=== PATIENT | female | born 1975 | race Caucasian/White ===

== ENCOUNTER 2018-07-17 15:38 | Inpatient (IN) ==
--- NOTE | 2018-07-17 15:59 | Emergency Department Note ---
Disposition Clinical Impression: Wound of foot Cellulitis Qualifiers: Site of cellulitis: extremity Site of cellulitis of extremity: lower extremity Laterality: left Qualified Code(s): L03.116 - Cellulitis of left lower limb Disposition: Admitted As Inpatient Condition: Good Time of Disposition: 18:05 General Adult HPI - General Chief complaint: ED Wound/Laceration Stated complaint: Cellulitis/Ulcer Left Foot Time Seen by Provider: 07/17/18 15:55 Nursing Notes Reviewed: Yes Vital Signs Reviewed: Yes - History of Present Illness HPI Narrative: Female patient presents emergency complaining of a nonhealing ulcer to the bottom of her left foot. This is been present for around 2 years. She did have a recent admission to [facility] approximately a month and a half ago for possible osteomyelitis. She states that she was ruled out for that at that time. She was placed on vancomycin and Zosyn at that time. She reports that she had chills on Monday. This was approximately 3-4 days ago. This morning she noted that her leg was increasingly swollen and red near her knee and around her left ankle. She did see Dr. Acuna today for the nonhealing ulcer to her foot and he instructed her to come to the emergency department for IV antibiotics. She denies any nausea vomiting or diarrhea. She does report pain to the bottom of her foot. She reports swelling to his left leg only. She states that she is standing on her feet frequently is at what she does at work. Pain Scale: 10 - Related Data Home Medications Medication Instructions Recorded Confirmed Atorvastatin [Lipitor] 40 mg PO HS 09/07/17 09/07/17 Ergocalciferol (VITAMIN D2) 50,000 unit PO SA 09/07/17 09/07/17 [Vitamin D2] Folic Acid 1 mg PO DAILY 09/07/17 09/07/17 Gabapentin [Neurontin] 300 mg PO TID 09/07/17 09/07/17 Lansoprazole [Prevacid] 30 mg PO DAILY 09/07/17 09/07/17 Linagliptin/Metformin HCl 1 tab PO BID 09/07/17 09/07/17 [Jentadueto 2.5 mg-1000 mg Tab] Tramadol HCl [Ultram] 50 mg PO BID PRN 09/07/17 09/07/17 Vitamin B Complex [B Complex] 1 tab PO DAILY 09/07/17 09/07/17 Previous Rx's Medication Instructions Recorded HYDROcodone/Acet 5/325 mg [[place] 1 tab PO Q6H PRN #28 tab 09/07/17 5-325 mg] Allergies Allergy/AdvReac Type Severity Reaction Status Date / Time pregabalin [From Lyrica] Allergy Dizziness Verified 07/17/18 15:49 All systems ED: reviewed and negative except as stated. Review of Systems: As Per HPI Constitutional: Reports: fever (Subjective), chills (Monday possibly Monday as well.) ENT ED: Denies: congestion Cardiovascular: Denies: chest pain, syncope Respiratory: Denies: cough, dyspnea Gastrointestinal: Denies: abdominal pain, nausea, vomiting, diarrhea Genitourinary: Denies: urgency, dysuria, frequency, hematuria Musculoskeletal: Denies: back pain, neck pain Integumentary: Reports: other (Erythema to left ankle medial and lateral aspect. Swelling to left lower extremity. Erythema to tibial plateau area. Nonhealing ulcer to ball of left foot.) Neurological: Denies: headache, weakness Past Medical History - Past Medical History Attestation: Yes The following information was validated with the patient. Source: patient Medical history: Reports: cancer, diabetes, GERD Psychiatric history: Reports: no psych history - Social History Smoking Status: Current every day smoker Smokeless Tobacco Status: No Alcohol use: Reports: none Drug use: Reports: none Physical Exam - General Limitations: no limitations General appearance: alert, in no apparent distress - Head Head exam: atraumatic, normocephalic, normal inspection - Eye Eye exam: Present: normal appearance, PERRL, EOMI - ENT ENT exam: normal exam, normal oropharynx, mucous membranes moist - Neck Neck exam: Present: normal inspection, full ROM, trachea midline - Chest Chest inspection: Present: normal inspection, symmetric chest wall rise. Absent: tenderness - Respiratory Respiratory exam: Present: normal lung sounds bilaterally. Absent: respiratory distress, accessory muscle use - Cardiovascular Cardiovascular exam: Present: regular rate, normal rhythm, normal heart sounds - Abdominal Exam Abdominal exam: Present: soft, Non-Tender. Absent: tenderness, distention, guarding, rebound, rigidity, organomegaly, Hou's sign, Rovsing's sign, tend erness at McBurney's Point - Expanded Upper Extremity Exam Shoulder exam: Present: normal inspection, full ROM Arm exam: Present: normal inspection, full ROM Elbow exam: Present: normal inspection, full ROM Forearm/Wrist exam: Present: normal inspection, full ROM Hand exam: Present: normal inspection, full ROM Vascular exam: Normal: capillary refill, radial pulse - Expanded Lower Extremity Exam Hip/Pelvis exam: Present: normal inspection, full ROM Upper leg exam: Present: normal inspection, full ROM Knee exam: Present: normal inspection, full ROM Lower leg exam: Present: swelling, erythema (To the lateral aspect of the tibial plateau. Blanching. Mildly warm. On the left). Absent: palpable cord Ankle exam: Present: tenderness (Left), swelling (Left), erythema (2 medial and lateral malleoli area. Painful to palpation. On the left) Foot/toe exam: Present: other (Nonhealing wounds of all of the left foot. Does not appear to be erythematous. No discharge.) Neurovascular/Tendon exam: Absent: motor deficit, sensory deficit, tendon deficit - Neurological Exam Neurological exam: Present: alert, oriented X3 - Psychiatric Psychiatric exam: Present: normal affect, normal mood - Skin Skin exam: Present: warm, dry, intact, normal color. Absent: rash, cyanosis, diaphoresis Course Course Narrative: Male patient is well-appearing. She does report subjective fevers over the weekend. Has this nonhealing wound to her left lower extremity. We did get an x-ray that showed no free air. I discussed with Dr. Acuna who is requesting that we admit patient to the hospital with IV antibodies. We did cover her with IV vancomycin and Zosyn for CML coverage as well. She otherwise appears well she is not febrile and not tachycardic or here. We did discuss imaging we will get a CT with contrast of the left lower extremity. She was negative for DVT. We will admit to the hospital. She does have a mildly elevated white blood cell count. - Consultations Consultation #1: I spoke with Dr. Acuna. He is concerned of the extent of the patient's cellulitis and her being febrile at home. He is requesting IV antibiotics and admission to the hospital. We talked about imaging and he is agreeable with a CT with contrast at this time to ensure there is no drainable abscess and admission to the hospital for possible further MRI if needed. Time: 17:50 Vital Signs Temperature 98.6 F 07/17/18 15:47 Pulse Rate 85 07/17/18 15:47 Respiratory Rate 16 07/17/18 15:47 Blood Pressure 108/67 07/17/18 15:47 O2 Sat by Pulse Oximetry 95 07/17/18 15:47 Temperature 98.6 F 07/17/18 15:47 Pulse Rate 85 07/17/18 15:47 Respiratory Rate 16 07/17/18 15:47 Blood Pressure 108/67 07/17/18 15:47 O2 Sat by Pulse Oximetry 95 07/17/18 15:47 Oxygen Delivery Oxygen Delivery Room Air Medical Decision Making - Medical Records Medical records reviewed: Yes I reviewed the patient's medical records. - Lab Data Lab results reviewed: Yes I reviewed the patient's lab results. Result diagrams: 07/17/18 16:36 07/17/18 16:36 Lab Results 07/17/18 07/17/18 Range/Units 16:36 16:36 WBC 12.7 H (4.3-11.1) K/mcL RBC 5.54 H (3.82-4.97) M/mcL Hgb 15.7 H (11.5-15.4) g/dL Hct 48.7 H (35.3-44.9) % MCV 87.9 (83.0-100.0) fL MCH 28.3 (28.0-33.3) pg MCHC 32.2 (31.6-35.5) g/dL RDW 14.2 (11.5-14.5) % Plt Count 246 (140-400) K/mcL MPV 11.1 (9.4-12.4) fL Immature Gran % 0.6 (0-4) % Seg Neutrophils % 60.2 % Lymphocytes % 26.9 % Monocytes % 10.0 % Eosinophils % 1.7 % Basophils % 0.6 % Neutrophils # 7.6 (1.6-8.9) K/mcL Lymphocytes # 3.4 (0.6-4.6) K/mcL Monocytes # 1.3 (0.0-1.3) K/mcL Eosinophils # 0.2 (0.0-0.6) K/mcL Basophils # 0.1 (0.0-0.2) K/mcL Sodium 136 (136-145) mEq/L Potassium 3.4 L (3.5-5.1) mEq/L Chloride 101 (98-107) mEq/L Carbon Dioxide 28 (23-29) mEq/L BUN 11 (6-20) mg/dL Creatinine 0.43 L (0.60-1.20) mg/dL Est GFR ( Amer) > 60 (> 60) Est GFR (Non-Af Amer) > 60 (> 60) BUN/Creatinine Ratio 26 (6-26) Glucose 194 H (70-105) mg/dL Calculated Osmolality 287 (280-300) Calcium 9.4 (8.6-10.3) mg/dL - Radiology Data Radiology results reviewed: Yes I reviewed the patient's radiology results. Foot X-Ray 07/17/18 16:33 IMPRESSION: Ulceration along the ball of the foot, without radiographic evidence of osteomyelitis. D/ / Emile Troncoso MD / Emile Troncoso MD Interpreting Provider: Emile Troncoso MD S.B.A.RSherine - Neeraj.BSherineASherineRSherine Assessment: Outstanding Labs (CT of lower extremity) Recommendation: Recommendation based on pending studies, treatments, or consults (Admission) S.B.A.RSherine Report Given to: Kenna Molina Repor Time: 18:53 Attestation Statement - Attestation Attestation: I, Beto Arevalo, examined this patient and my medical decision-making was reviewed with the POLO COACH/PA/Advanced Practice Nurse/Resident Physician. I agree with the documented findings, disposition and treatment plan as described except to the extent set forth below. 42-year-old female presents emergency Department with concerns of swelling left lower extremity. Patient was recently admitted [facility] for osteomyelitis of left lower extremity. She follows Dr. Acuna as outpatient for treatment of her wound care. Patient had swelling and erythema of left lower extremities today and she sent emergency department for further evaluation and likely admission to the hospital for IV antibiotics. Ultrasound of the left lower extremity was negative for DVT. Patient be admitted to the hospitalist for further care and evaluation.
[2018-07-17] MEDS ORDERED: 0.9 % Sodium Chloride 1,000 ML IVC ONE (16:32)
[2018-07-17] MEDS ORDERED: Piperacillin/Tazobactam 3.375 GM in 0.9 % Sodium Chloride Mini Bag 100 ML IVPB ONE ×2 (16:49→16:54)
[2018-07-17] MEDS ORDERED: Isovue-370 500 ML INFUS..BTL IV ONE (17:00)
[2018-07-17 17:02] LABS: Basophils # 0.1 K/mcL (0.0-0.2); Basophils % 0.6 %; Eosinophils # 0.2 K/mcL (0.0-0.6); Eosinophils % 1.7 %; Hematocrit 48.7 % (35.3-44.9); Hemoglobin 15.7 g/dL (11.5-15.4); Immature Granulocytes % 0.6 % (0-4); Lymphocytes # 3.4 K/mcL (0.6-4.6); Lymphocytes % 26.9 %; Mean Corpuscular HGB Conc 32.2 g/dL (31.6-35.5); Mean Corpuscular Hemoglobin 28.3 pg (28.0-33.3); Mean Corpuscular Volume 87.9 fL (83.0-100.0); Mean Platelet Volume 11.1 fL (9.4-12.4); Monocytes # 1.3 K/mcL (0.0-1.3); Neutrophils # 7.6 K/mcL (1.6-8.9); Platelet Count 246 K/mcL (140-400); Red Blood Count 5.54 M/mcL (3.82-4.97); Red Cell Distribution Width 14.2 % (11.5-14.5); Segmented Neutrophils % 60.2 %
[2018-07-17] MEDS ORDERED: *HR* OxyCODONE Immed Rel 5 MG TABLET PO ONE (17:20)
[2018-07-17 17:21] LABS: BUN/Creatinine Ratio 26 (6-26); Blood Urea Nitrogen 11 mg/dL (6-20); Calcium 9.4 mg/dL (8.6-10.3); Carbon Dioxide 28 mEq/L (23-29); Chloride 101 mEq/L (98-107); Glucose 194 mg/dL (70-105); Osmolality,Calculated 287 (280-300); Potassium 3.4 mEq/L (3.5-5.1); Sodium 136 mEq/L (136-145); eGFR For Non-African Americans > 60 (> 60)
[2018-07-17] MEDS ORDERED: Naloxone 0.4 MG/ML INJ IVP PRN (18:39)
[2018-07-17] MEDS ORDERED: Ondansetron 4 MG/2 ML VIAL IVP PRN (18:39)
[2018-07-17] MEDS ORDERED: *HR* OxyCODONE Immed Rel 5 MG TABLET PO PRN (18:44)
[2018-07-17] MEDS ORDERED: Dextrose Gel 15 GM/37.5 ML TUBE PO PRN ×2 (18:48)
[2018-07-17] MEDS ORDERED: *HR* Dextrose 50 % in Water (Syg) 50 ML SYRINGE IVP PRN (18:48)
[2018-07-17] MEDS ORDERED: D5% in Water 1,000 ML IVC PRN (18:48)
--- NOTE | 2018-07-17 18:59 | Internal Med History&Physical ---
Date of Encounter: 07/17/18 Time of Encounter: 18:54 Internal Medicine - H&P: HPI Chief complaint: wound l foot Admitted From: Emergency Dept Plans for Post Hospital Care: Home History of present illness: Ms. Romero is a 42 year old female past medical history of diabetes GERD current every day smoker nonhealing ulcer. Patient has had a nonhealing ulcer to the bottom of her left foot for approximately past 2 years. She has been followed by podiatry Dr. Acuna. Lisandro a month and half ago she did present to an [facility] facility for possible osteomyelitis and did receive vancomycin and Zosyn at that time. Approximately 3-4 days ago patient has been experiencing fevers and chills. Patient continued to feel lethargic and fatigued over the weekend. She has noted that her left foot has been swollen and red up to her knee tender as well as warm. She has been unable to bear any weight she is complaining of some numbness and tingling She did have appointment with podiatry tomorrow however he advised her to come to the office today. Podiatry advised patient to go to hospital for IV antibiotics. In the ER patient did have elevated white count the x-ray did not show any evidence of osteomyelitis CT scan of left lower extremity has been ordered and is pending. Blood cultures have been obtained patient has been started on vancomycin and Zosyn. She will be admitted for further workup and evaluation of cellulitis to left lower extremity. Currently patient is hemodynamically stable afebrile denies any chest pain or shortness of breath. Extremity is warm to touch, there is edema left foot up to left knee nor extremity is tender to touch there is erythema to left foot pulses are present +2 palpable Refills are brisk Past Med Surg Social Fam HX - Past Medical History Medical history: cancer, diabetes, GERD Psychiatric history: no psych history - Past Surgical History Additional surgical history: foot surgery - Social History Smoking Status: Current every day smoker Smokeless Tobacco Status: No Alcohol use: none Drug use: none - Family History Mother Living Status: Still Living Hx Family Endocrine Disorder: Yes (DM) Internal Medicine - H&P: Meds Atorvastatin [Lipitor] 40 mg PO HS 09/07/17 [History] Ergocalciferol (VITAMIN D2) [Vitamin D2] 50,000 unit PO SA 09/07/17 [History] Folic Acid 1 mg PO DAILY 09/07/17 [History] Gabapentin [Neurontin] 300 mg PO TID 09/07/17 [History] HYDROcodone/Acet 5/325 mg [[place] 5-325 mg] 1 tab PO Q6H PRN #28 tab 09/07/17 [Rx] Lansoprazole [Prevacid] 30 mg PO DAILY 09/07/17 [History] Linagliptin/Metformin HCl [Jentadueto 2.5 mg-1000 mg Tab] 1 tab PO BID 09/07/17 [History] Tramadol HCl [Ultram] 50 mg PO BID PRN 09/07/17 [History] Vitamin B Complex [B Complex] 1 tab PO DAILY 09/07/17 [History] Allergy/AdvReac Type Severity Reaction Status Date / Time pregabalin [From Lyrica] Allergy Dizziness Verified 07/17/18 15:49 All Systems PM: A 10-system review of systems was performed and is negative for pertinent findings except as documented above in the HPI. - Constitutional Constitutional: chills, fever(s) - EENT Eyes: no change in vision, no discharge, no pain, no photophobia Ears: no ear discharge, no ear pain, no tinnitus Nose, mouth and throat: no dysphagia, no nasal discharge, no neck pain, no sore throat - Cardiovascular Cardiovascular ROS IM: edema, no chest pain, no diaphoresis, no dyspnea, no lightheadedness, no palpitations, no syncope - Respiratory Respiratory: no cough, no dyspnea, no wheezing, no excessive phlegm production - Gastrointestinal Gastrointestinal: no abdominal pain, no diarrhea, no hematemesis, no hematochezia, no melena, no nausea, no vomiting - Genitourinary Genitourinary: no change in urinary stream, no dysuria, no flank pain, no hematuria - Musculoskeletal Musculoskeletal ROS IM: no numbness, no tingling - Integumentary Integumentary IM: erythema, non-healing lesions - Neurological Neurological ROS: no confusion, no convulsions, no focal weakness, no numbness, no tingling, no tremor(s) - Hematologic/Lymphatic Hematologic/Lymphatic: no easy bruising - Constitutional Vitals: Temp Pulse Resp BP Pulse Ox 98.6 F 85 16 108/67 95 07/17/18 15:47 07/17/18 15:47 07/17/18 15:47 07/17/18 15:47 07/17/18 15:47 General appearance: Present: A&O X 3, morbidly obese Exam: See below - Head Head exam: Present: atraumatic, normocephalic - Eye Eye exam: Present: PERRL, conjuntiva pink, sclera anicteric Pupils: Present: PERRL - Neck Neck exam general surgery: Present: supple, trachea midline. Absent: lymphadenopathy - Respiratory Respiratory exam: Present: CTAB. Absent: accessory muscle use, rales, rhonchi, wheezes - Cardiovascular Cardiovascular exam: Present: RRR, +S1, +S2. Absent: diastolic murmur, gallop, rubs, systolic murmur - GI/Abdominal GI/Abdominal exam: Present: normal bowel sounds, soft, no peritoneal signs. Absent: distended, tenderness - Expanded Lower Extremities Exam Lower Leg exam: Present: erythema, swelling, tenderness (Lesion plantar second metatarsal head area ) - Neurological Exam Neurological exam: Present: CN II-XII intact, oriented X3, no focal deficits. Absent: pronater drift, facial droop, speech deficit Internal Med - H&P Results - Labs CBC & Chem 7: 07/17/18 16:36 07/17/18 16:36 Labs: Short CBC 07/17/18 Range/Units 16:36 WBC 12.7 H (4.3-11.1) K/mcL Hgb 15.7 H (11.5-15.4) g/dL Hct 48.7 H (35.3-44.9) % Plt Count 246 (140-400) K/mcL Neutrophils # 7.6 (1.6-8.9) K/mcL BMP 07/17/18 16:36 Sodium 136 Potassium 3.4 L Chloride 101 Carbon Dioxide 28 BUN 11 Creatinine 0.43 L Glucose 194 H Calcium 9.4 - Impressions ITS Impressions Foot X-Ray 07/17/18 16:33 IMPRESSION: Ulceration along the ball of the foot, without radiographic evidence of osteomyelitis. D/ / Emile Troncoso MD / Emile Troncoso MD Interpreting Provider: Emile Troncoso MD - Assessment and plan (1) Cellulitis Current Visit: Yes Status: Acute Assessment and plan: Patient has a nonhealing ulcer to plantar aspect of left foot this has been present for approximately 2 years and has been followed by podiatry. The past 3-4 days patient has been experiencing lower extremity swelling tenderness erythema has been unable to bear weight onto left leg. Was seen by podiatry recommending IV antibiotics at this time. X-ray of left extremity shows no osteomyelitis CT of left lower extremity is pending at this time. Blood cultures have been obtained-patient does not appear to be septic We will continue with vancomycin and Zosyn Continue with [place] as well as oxycodone for severe pain Elevate extremity Podiatry consult in the emergency department ESR CRP Qualifiers: Site of cellulitis: extremity Site of cellulitis of extremity: lower extremity Laterality: left Qualified Code(s): L03.116 - Cellulitis of left lower limb (2) Diabetes Current Visit: Yes Status: Acute Assessment and plan: Accu-Cheks before meals at bedtime with sliding scale insulin Diabetic diet Qualifiers: Diabetes mellitus type: type 2 Diabetes mellitus half-way insulin use: without termite technician use Diabetes mellitus complication status: with skin c omplications Diabetes mellitus complication detail: with foot ulcer Qualified Code(s): E11.621 - Type 2 diabetes mellitus with foot ulcer; L97.509 - Non-pressure chronic ulcer of other part of unspecified foot with unspecified severity (3) Tobacco use Current Visit: Yes Status: Acute Assessment and plan: Encourage patient to stop smoking nicotine patch (4) DVT prophylaxis Current Visit: Yes Status: Acute Assessment and plan: Lovenox subcutaneous (5) Hypokalemia Current Visit: Yes Status: Acute Assessment and plan: Potassium was 3.4 presentation we will replace and recheck in a.m. (6) Wound of foot Current Visit: Yes Status: Acute - Time Spent With Patient Total time spent is greater than 50% in coordination of care (as documented) at patient's floor/unit and/or counseling patient:
[2018-07-17 19:17] LABS: Magnesium 1.7 mg/dL (1.6-2.6)
[2018-07-17 19:47] LABS: C-Reactive Protein 75 mg/L (Less than 10)
[2018-07-17] MEDS: Nicotine 7 MG PATCH.TD24 TD SCH (21:32)
[2018-07-17] MEDS: Insulin LISPRO 300 UNITS/3 ML VIAL SQ SCH (23:55)
[2018-07-18] MEDS: Piperacillin/Tazobactam 3.375 GM in 0.9 % Sodium Chloride Mini Bag 100 ML IVPB SCH ×3 (00:43→16:37)
[2018-07-18 06:16] LABS: Basophils # 0.1 K/mcL (0.0-0.2); Basophils % 0.6 %; Eosinophils # 0.2 K/mcL (0.0-0.6); Eosinophils % 2.1 %; Hematocrit 45.5 % (35.3-44.9); Hemoglobin 14.4 g/dL (11.5-15.4); Immature Granulocytes % 0.5 % (0-4); Lymphocytes # 2.7 K/mcL (0.6-4.6); Lymphocytes % 24.6 %; Mean Corpuscular HGB Conc 31.6 g/dL (31.6-35.5); Mean Corpuscular Hemoglobin 28.1 pg (28.0-33.3); Mean Corpuscular Volume 88.7 fL (83.0-100.0); Mean Platelet Volume 10.6 fL (9.4-12.4); Monocytes # 1.1 K/mcL (0.0-1.3); Monocytes % 10.2 %; Neutrophils # 6.8 K/mcL (1.6-8.9); Platelet Count 234 K/mcL (140-400); Red Blood Count 5.13 M/mcL (3.82-4.97); Red Cell Distribution Width 14.4 % (11.5-14.5)
[2018-07-18 06:34] LABS: BUN/Creatinine Ratio 26 (6-26); Blood Urea Nitrogen 9 mg/dL (6-20); Calcium 8.8 mg/dL (8.6-10.3); Carbon Dioxide 26 mEq/L (23-29); Chloride 105 mEq/L (98-107); Glucose 154 mg/dL (70-105); Osmolality,Calculated 286 (280-300); Potassium 3.7 mEq/L (3.5-5.1); Sodium 137 mEq/L (136-145); eGFR For Non-African Americans > 60 (> 60)
[2018-07-18] MEDS: Nicotine 7 MG PATCH.TD24 TD SCH (07:43)
[2018-07-18] MEDS: *HR* Enoxaparin 40 MG/0.4 ML SYRINGE SQ SCH (07:44)
[2018-07-18] MEDS: Insulin LISPRO 300 UNITS/3 ML VIAL SQ SCH ×4 (07:44→21:11)
[2018-07-18] MEDS: *HR* HYDROcodone/Acet 5/325 mg TABLET PO PRN ×2 (07:54→19:00)
[2018-07-18] MEDS ORDERED: Gadolinium Contrast Agent (WT Based) IV PRN (10:10)
--- NOTE | 2018-07-18 15:21 | Podiatry Consult Note ---
Date of Encounter: 07/18/18 Time of Encounter: 12:00 Assessment and Plan (1) Cellulitis Current visit: Yes Status: Acute [place] stage II ulceration of the plantar aspect of the left foot with associated cellulitis PLAN Admitted for IV antibiotics WBC responding, 12.7 on admission decreased to 10.9 today ESR 63 and CRP 75 Xray negative for osteomyelitis CT scan shows possible erosion at the 3rd mt head- MRI ordered and pending to rule out abscess or possible osteomyelitis Continue elevation Cleansed with saline Maxsorb AG, 4x4 and kerlix applied Change daily Blood cultures were obtained and pending Wound cultures were obtained in office and pending Will titrate antibiotic pending MRI results and final culture Will continue to follow. Foot X-Ray 07/17/18 16:33 IMPRESSION: Ulceration along the ball of the foot, without radiographic evidence of osteomyelitis. D/ / Emile Troncoso MD / Emile Troncoso MD Interpreting Provider: Emile Troncoso MD Lower Extremity CT 07/17/18 17:00 IMPRESSION: 1. Possible age-indeterminate erosion along the medial plantar surface of the 3rd metatarsal head. If there is persistent clinical concern for osteomyelitis MRI could be obtained for further evaluation. 2. Shallow soft tissue ulceration plantar to the 2nd and 3rd metatarsal heads with underlying induration. No sinus tract or drainable fluid collection identified. Diffuse subcutaneous fat stranding compatible with cellulitis. D/ / Bran Campuzano MD / Bran Campuzano MD Interpreting Provider: Bran Campuzano MD Qualifiers: Site of cellulitis: extremity Site of cellulitis of extremity: lower extremity Laterality: left Qualified Code(s): L03.116 - Cellulitis of left lower limb (2) Wound of foot Current visit: Yes Status: Acute Cleanse daily with saline, pat dry Apply maxsorb AG, 4x4 and kerlix Will need post operative shoe for offloading prior to discharge. History of Present Illness HPI: Ms. Romero is a 42 year old female past medical history of diabetes GERD and current every day smoker. Patient presented to podiatry clinic on 07/17 with complaints of a non healing ulceration to the plantar aspect of the left foot, pain, numbness and weakness of the left leg starting at the knee and drainage to the wound. Patient denied any fevers, chills, n/v or fls. Approximately 3-4 days ago patient reported she had been experiencing fevers and chills. Patient continued to feel lethargic and fatigued over the weekend. She also reported in clinic that her leg, up to her knee, and foot had been swollen, red, hot and tender x3 days. She has been unable to bear any weight. Patient was sent from Podiatry clinic to ED for admission for IV antibiotics. In the ER patient did have elevated white count at 12.1 however the x-ray did not show any evidence of osteomyelitis. Blood cultures have been obtained patient has been started on vancomycin and Zosyn. Wound cultures were obtained in podiatry clinic. Upon a rrival today patient reports she feels about the same. Denies any known fevers or chills overnight. Currently patient is hemodynamically stable, afebrile, denies any chest pain or shortness of breath. LLE duplex was negative for DVT. Patient reports continued pain to LLE. Past Med Surg Social Fam HX - Past Medical History Medical history: cancer, diabetes, GERD Psychiatric history: no psych history - Past Surgical History Surgical History: , hysterectomy Additional surgical history: foot surgery - Social History Smoking Status: Current every day smoker Packs per day: 1/2 Smokeless Tobacco Status: No Alcohol use: none Drug use: none - Family History Mother Name: Jaida Aguero Age: 62 Family Member Ethnicity: Non- Living Status: Still Living Hx Family Cardiac Disorders: Yes Hx Family Respiratory Disorders: Yes Hx Family GI Disorders: Yes Hx Family Endocrine Disorder: Yes Hx Family Psychosocial Disorders: Yes Medications and Allergies Atorvastatin [Lipitor] 40 mg PO HS 09/07/17 [History] Ergocalciferol (VITAMIN D2) [Vitamin D2] 50,000 unit PO SA 09/07/17 [History] Gabapentin [Neurontin] 300 mg PO TID 09/07/17 [History] Dicyclomine Hcl [Bentyl] 20 mg PO TID 07/17/18 [History] Insulin Degludec [Tresiba Flextouch U-100] 30 unit SQ DAILY 07/17/18 [History] Allergy/AdvReac Type Severity Reaction Status Date / Time pregabalin [From Lyrica] Allergy Dizziness Verified 07/17/18 15:49 All Systems Reviewed: Tas per HPI Physical Exam - Constitutional Vitals: Temp Pulse Resp BP Pulse Ox 98.1 F 88 16 124/83 91 07/18/18 12:14 07/18/18 12:14 07/18/18 12:14 07/18/18 12:14 07/18/18 12:14 Exam: Awake alert and oriented Warm toes to tibia Palpable +1/4 DP and PT pulses, cap refill <3 seconds, no pain with manual compression of calf 1+ pitting edema to GERARDO There is noted warmth, edema and erythema of LLE most prominent surrounding the medial and lateral malleolus and heel as well as scatted up to knee. There are no noted areas of pronounced edema or fluctuance to suggest an abscess clinically. There is an ulceration sub mt head #2 and #3 plantar aspect of left foot There is mild hyperkeratosis surrounding which was debrided in office yesterday revealing a keating stage II diabetic ulceration without probe to bone. There is moderate serosang drainage noted. No odor noted. Mild surrounding edema, erythema and warmth. cellulitis is more diffuse. There is some resolution noted in comparison to yesterdays exam Movement of foot and ankle intact and without weakness 5/5 and equal bilaterally Diminished sensation to light or moderate touch related to polyneuropathy Results - Labs Result Diagrams: 07/18/18 05:54 07/18/18 05:54 Labs: Abnormal lab results RBC 5.13 M/mcL (3.82-4.97) H 07/18/18 05:54 Hct 45.5 % (35.3-44.9) H 07/18/18 05:54 ESR 63 mm/hr (0-15) H 07/17/18 16:35 Creatinine 0.34 mg/dL (0.60-1.20) L 07/18/18 05:54 Glucose 154 mg/dL (70-105) H 07/18/18 05:54 C-Reactive Protein 75 mg/L (Less than 10) H 07/17/18 16:36 H & H 07/17/18 07/18/18 Range/Units 16:36 05:54 Hgb 15.7 H 14.4 (11.5-15.4) g/dL Hct 48.7 H 45.5 H (35.3-44.9) % All other labs normal. Consult Discharge Plan - Plan Referrals: Stephanie Campbell MD [Primary Care Provider] -
[2018-07-18 15:53] LABS: Acinetobacter baumannii by PCR Not Detected (Not Detect); Candida albicans by PCR Not Detected (Not Detect); Candida glabrata by PCR Not Detected (Not Detect); Candida krusei by PCR Not Detected (Not Detect); Candida parapsilosis by PCR Not Detected (Not Detect); Candida tropicalis by PCR Not Detected (Not Detect); Enterobacter cloacae Cmplx PCR Not Detected (Not Detect); Enterobacteriaceae by PCR Not Detected (Not Detect); Enterococcus by PCR Not Detected (Not Detect); Escherichia coli by PCR Not Detected (Not Detect); Klebsiella oxytoca by PCR Not Detected (Not Detect); Klebsiella pneumoniae by PCR Not Detected (Not Detect); Proteus by PCR Not Detected (Not Detect); Pseudomonas aeruginosa by PCR Not Detected (Not Detect); Serratia marcescens by PCR Not Detected (Not Detect); Staphylococcus aureus by PCR Not Detected (Not Detect); Staphylococcus by PCR DETECTED (Not Detect); Streptococcus agalactiae(B)PCR Not Detected (Not Detect); Streptococcus by PCR Not Detected (Not Detect); Streptococcus pneumoniae PCR Not Detected (Not Detect); Streptococcus pyogenes (A) PCR Not Detected (Not Detect); mecA Methicillin-Resist Gene DETECTED (Not Detect)
[2018-07-18] MEDS ORDERED: Vancomycin 1,750 MG in 0.9 % Sodium Chloride 250 ML IVPB SCH (19:00)
[2018-07-18] MEDS ORDERED: Nicotine 7 MG PATCH.TD24 TD ONE (21:00)
--- NOTE | 2018-07-18 21:23 | Internal Med Progress Note ---
Hospitalist Progress Note - Encounter Date of Encounter: 07/18/18 Time of Encounter: 19:00 - Subjective Interval History: SUBJECTIVE: The patient feels pretty good. Her left foot pain is under control. Denies chest pain and difficulty breathing. Denies abdominal pain. She has normal urination. OBJECTIVE: Skin: For description of left foot diabetic ulcer/cellulitis see notes from podiatry. The rest of the skin is normal in appearance. ENMT: Oral/pharyngeal mucosa is normal in appearance. Eyes: Sclera is white. There is no discharge from eyes. Respiratory: Normal breath sounds; no crackles or wheezes. CV: Heart is regular; no gallop or murmur. GI: Abdomen is soft and not tender. There is no palpable mass or visceromegaly. Neuro: There is no focal deficits. ADDITIONAL DATA: WBC is 10.9 thousand; 12.7 thousand yesterday. Potassium is 3.7; 3.4 yesterday. Creatinine is 0.34. ASSESSMENT AND PLAN: Diabetic ulcer/cellulitis of left foot in a patient with type 2 diabetes mellitus/polyneuropathy. We appreciate help from podiatry. MRI of left foot has been requested. The patient is on IV vancomycin/IV Zosyn. Her pain is treated with when necessary Fil[place] and/or Roxicodone. Hyperlipidemia. We will restart her Lipitor. Hypokalemia. Better after giving her a supplemental potassium chloride. - Exam Vitals: Temp Pulse Resp BP Pulse Ox 99.0 F 92 16 113/79 93 07/18/18 20:42 07/18/18 20:42 07/18/18 20:42 07/18/18 20:42 07/18/18 20:42 Exam: xx - Assessment and Plan (1) T2DM (type 2 diabetes mellitus) Current Visit: Yes Status: Chronic (2) T2DM (type 2 diabetes mellitus) Current Visit: Yes Status: Chronic (3) Cellulitis Current Visit: Yes Status: Acute (4) HLD (hyperlipidemia) Current Visit: Yes Status: Acute (5) Hypokalemia Current Visit: Yes Status: Acute - Time Spent with Patient Total time spent is greater than 50% in coordination of care (as documented) at patient's floor/unit and/or counseling patient: 25 - 35 minutes Plan of Care Discussed with: patient Internal Medicine: Result - Labs CBC & Chem 7: 07/18/18 05:54 07/18/18 05:54 Labs: Short CBC 07/18/18 Range/Units 05:54 WBC 10.9 (4.3-11.1) K/mcL Hgb 14.4 (11.5-15.4) g/dL Hct 45.5 H (35.3-44.9) % Plt Count 234 (140-400) K/mcL Neutrophils # 6.8 (1.6-8.9) K/mcL BMP 07/18/18 05:54 Sodium 137 Potassium 3.7 Chloride 105 Carbon Dioxide 26 BUN 9 Creatinine 0.34 L Glucose 154 H Calcium 8.8 - Impressions Impressions Foot MRI 07/18/18 00:00 IMPRESSION: 1. No convincing evidence of osteomyelitis or other acute osseous abnormality. Chronic appearing deformity or erosion along the medial plantar surface of the 3rd metatarsal head without bone marrow edema. 2. Mild circumferential subcutaneous edema of the calf and moderate dorsal mid and forefoot subcutaneous edema compatible with sterile edema versus cellulitis. No drainable fluid collection. 3. Shallow soft tissue ulceration plantar to the 3rd MTP joint. No sinus tract or associated fluid collection. 4. Small volume of fluid in the 3rd interdigital space as can be seen with intermetatarsal bursitis. D/ / Bran Campuzano MD / Bran Campuzano MD Interpreting Provider: Bran Campuzano MD Lower Extremity MRI 07/18/18 00:00 IMPRESSION: 1. No convincing evidence of osteomyelitis or other acute osseous abnormality. Chronic appearing deformity or erosion along the medial plantar surface of the 3rd metatarsal head without bone marrow edema. 2. Mild circumferential subcutaneous edema of the calf and moderate dorsal mid and forefoot subcutaneous edema compatible with sterile edema versus cellulitis. No drainable fluid collection. 3. Shallow soft tissue ulceration plantar to the 3rd MTP joint. No sinus tract or associated fluid collection. 4. Small volume of fluid in the 3rd interdigital space as can be seen with intermetatarsal bursitis. D/ / Bran Campuzano MD / Bran Campuzano MD Interpreting Provider: Bran Campuzano MD Consult Discharge Plan - Plan Referrals: Stephanie Campbell MD [Primary Care Provider] - (1) T2DM (type 2 diabetes mellitus) Qualifiers: Diabetes mellitus laborer marine terminal insulin use: with laborer marine terminal use Diabetes mellitus complication status: with skin complications Diabetes mellitus complication detail: with foot ulcer Qualified Code(s): E11.621 - Type 2 diabetes mellitus with foot ulcer; L97.509 - Non-pressure chronic ulcer of other part of unspecified foot with unspecified severity; Z79.4 - ferry terminal agent (current) use of insulin (2) T2DM (type 2 diabetes mellitus) Qualifiers: Diabetes mellitus longterm insulin use: with longterm use Diabetes mellitus complication status: with neurologic complications Diabetes mellitus complication detail: with polyneuropathy Qualified Code(s): E11.42 - Type 2 diabetes mellitus with diabetic polyneuropathy; Z79.4 - assisted (current) use of insulin (3) Cellulitis Qualifiers: Site of cellulitis: extremity Site of cellulitis of extremity: lower extremity Laterality: left Qualified Code(s): L03.116 - Cellulitis of left lower limb (4) HLD (hyperlipidemia) Qualifiers: Hyperlipidemia type: unspecified Qualified Code(s): E78.5 - Hyperlipidemia, unspecified
[2018-07-19] MEDS: Piperacillin/Tazobactam 3.375 GM in 0.9 % Sodium Chloride Mini Bag 100 ML IVPB SCH ×3 (00:09→17:09)
[2018-07-19] MEDS: Acetaminophen 325 MG TABLET PO PRN ×3 (01:07→19:58)
[2018-07-19] MEDS: *HR* Enoxaparin 40 MG/0.4 ML SYRINGE SQ SCH (05:44)
[2018-07-19] MEDS: Insulin LISPRO 300 UNITS/3 ML VIAL SQ SCH ×4 (07:17→21:03)
[2018-07-19] MEDS: Nicotine 7 MG PATCH.TD24 TD SCH (07:57)
--- NOTE | 2018-07-19 09:08 | Podiatry Progress Note ---
Date of Encounter: 07/19/18 Time of Encounter: 08:30 - Assessment and Plan (1) Cellulitis Current Visit: Yes Status: Acute [place] stage II ulceration of the plantar aspect of the left foot with associated cellulitis Improved erythema, none noted to thigh area. Erythema noted to left calf and left foot No lab work today. MRI reviewed no signs of osteomyelitis or acute abnormality. Xray negative for osteomyelitis CT scan shows possible erosion at the 3rd mt head- Continue elevation Blood cultures were obtained and show gram positive cocci. Gram stain from office also show gram-positive cocci. Wound cultures were obtained in office and pending. Will continue to follow. Recommend -ID consult for antibiotic management and de-escalation Foot X-Ray 07/17/18 16:33 IMPRESSION: Ulceration along the ball of the foot, without radiographic evidence of osteomyelitis. D/ / Emile Troncoso MD / Emile Troncoso MD Interpreting Provider: Emile Troncoso MD Lower Extremity CT 07/17/18 17:00 IMPRESSION: 1. Possible age-indeterminate erosion along the medial plantar surface of the 3rd metatarsal head. If there is persistent clinical concern for osteomyelitis MRI could be obtained for further evaluation. 2. Shallow soft tissue ulceration plantar to the 2nd and 3rd metatarsal heads with underlying induration. No sinus tract or drainable fluid collection identified. Diffuse subcutaneous fat stranding compatible with cellulitis. D/ / Bran Campuzano MD / Bran Campuzano MD Interpreting Provider: Bran Campuzano MD R #: [id number] MR/MR lower leg LT wo/w con IMPRESSION: 1. No convincing evidence of osteomyelitis or other acute osseous abnormality. Chronic appearing deformity or erosion along the medial plantar surface of the 3rd metatarsal head without bone marrow edema. 2. Mild circumferential subcutaneous edema of the calf and moderate dorsal mid and forefoot subcutaneous edema compatible with sterile edema versus cellulitis. No drainable fluid collection. 3. Shallow soft tissue ulceration plantar to the 3rd MTP joint. No sinus tract or associated fluid collection. 4. Small volume of fluid in the 3rd interdigital space as can be seen with intermetatarsal bursitis. D/ / Bran Campuzano MD / Bran Campuzano MD Interpreting Provider: Bran Campuzano MD Qualifiers: Site of cellulitis: extremity Site of cellulitis of extremity: lower extremity Laterality: left Qualified Code(s): L03.116 - Cellulitis of left lower limb (2) Wound of foot Current Visit: Yes Status: Acute Cleanse daily with 0.9 normal saline Apply maxsorb AG, 4x4 dry gauze, and kerlix Will order postoperative shoe to promote offloading. (3) T2DM (type 2 diabetes mellitus) Current Visit: Yes Status: Chronic Blood glucose levels in hospital 130 to 190s. Primary managing. Recommend tight glycemic control to promote wound healing Qualifiers: Diabetes mellitus terminal gauger supervisor insulin use: with assisted use Diabetes mellitus complication status: with neurologic complications Diabetes mellitus complication detail: with polyneuropathy Qualified Code(s): E11.42 - Type 2 diabetes mellitus with diabetic polyneuropathy; Z79.4 - termite helper (current) use of insulin (4) Tobacco use Current Visit: Yes Status: Chronic Currently on nicotine patch. Primary managing Discussed smoking cessation. Educated on wound healing and pathology related to smoking. Subjective Interval history: Patient awake in bed. Alert and oriented x 3. Denies any overnight complications other than headache. Objective - Vital Signs Vital Signs: Vital Signs Temp Pulse Resp BP Pulse Ox 07/19/18 07:15 99.0 F 102 18 98/61 93 07/19/18 06:38 99.0 F 102 18 98/61 85 07/19/18 04:10 97.9 F 87 18 95/64 93 07/18/18 23:41 98.5 F 89 16 98/63 92 07/18/18 20:42 99.0 F 92 16 113/79 93 07/18/18 16:13 98.9 F 95 16 113/78 94 07/18/18 12:14 98.1 F 88 16 124/83 91 Intake and Output 07/18/18 07/19/18 07/19/18 23:59 07:59 15:59 Intake Total 350 / 350 100 / 100 240 / 240 Output Total 200 / 200 300 / 300 Balance 150 / 150 -200 / -200 240 / 240 Intake: IV Fluids 350 / 350 100 / 100 Zosyn 3.375 GM In 0.9 % Sodium 100 / 100 100 / 100 Chloride (Mini-Bag +) 100 ML @ 25 mls/hr IVPB Q8HR [facility] Rx#: [id number] Vancocin 1,500 MG In 0.9 % 250 / 250 Sodium Chloride 250 ML @ 166.67 mls/hr IVPB Q12H [facility] Rx#: [id number] Oral 240 / 240 Output: Urine 200 / 200 300 / 300 Other: Meal Breakfast Percent of Meal Consumed 95% Stool Size Large Stool Consistency formed Stool Color Brown # Bowel Movements 1 Weight 118.9 kg Blood Glucose* 198 131 - Exam Exam: Constitiutional: Alert and oriented x 3. Vascular: 1/4 DP/PT left foot, CFT <3 sec to all digits left foot, warm to warm from tibia to toes left foot Neurologic: Diminished sensation to touch, normal plantar response, Normal p osition sense dorsiflexion/plantar flexion Dermatologic: Skin erythematous LLE from heel to knee, ulceration submetatarsal #2,3 plantar aspect of foot, dressing to LLE C/D/I Musculoskeletal: 5/5 muscle strength and normal tone bilaterally. - Lab Result Diagrams: 07/18/18 05:54 07/18/18 05:54 Labs: Abnormal lab results RBC 5.13 M/mcL (3.82-4.97) H 07/18/18 05:54 Hct 45.5 % (35.3-44.9) H 07/18/18 05:54 ESR 63 mm/hr (0-15) H 07/17/18 16:35 Creatinine 0.34 mg/dL (0.60-1.20) L 07/18/18 05:54 Glucose 154 mg/dL (70-105) H 07/18/18 05:54 POC Glucose 198 mg/dL (70-99) H 07/18/18 20:45 C-Reactive Protein 75 mg/L (Less than 10) H 07/17/18 16:36 Staphylococcus sp PCR DETECTED (Not Detect) A 07/17/18 17:09 mecA-Methicil Res Gene DETECTED (Not Detect) A 07/17/18 17:09 Microbiology, Last 48 Hours 07/17/18 17:09 Blood Culture - Preliminary Peripheral Venipuncture Gram Positive Cocci 07/17/18 17:02 Blood Culture - Preliminary Peripheral Venipuncture Culture is incubating and being continuously monitored for growth. Final report to follow. Consult Discharge Plan - Plan Additional Instructions: Follow up in wound clinic with Dr. Acuna. Please make appointment prior to d/c. Referrals: Stephanie Campbell MD [Primary Care Provider] - Beto Acuna DPM [Partnered Physician] -
--- NOTE | 2018-07-19 21:01 | Internal Med Progress Note ---
Hospitalist Progress Note - Encounter Date of Encounter: 07/19/18 Time of Encounter: 17:00 - Subjective Interval History: SUBJECTIVE: Her left foot pain is under control. Denies chest pain and difficulty breathing. Denies abdominal pain. She has normal urination. OBJECTIVE: Skin: For description of left foot diabetic ulcer/cellulitis see notes from podiatry. The rest of the skin is normal in appearance. ENMT: Oral/pharyngeal mucosa is normal in appearance. Eyes: Sclera is white. There is no discharge from eyes. Respiratory: Normal breath sounds; no crackles or wheezes. CV: Heart is regular; no gallop or murmur. GI: Abdomen is soft and not tender. There is no palpable mass or visceromegaly. Neuro: There is no focal deficits. ADDITIONAL DATA (from yesterday): WBC is 10.9 thousand; 12.7 thousand yesterday. Potassium is 3.7; 3.4 yesterday. Creatinine is 0.34. ASSESSMENT AND PLAN: Diabetic ulcer/cellulitis of left foot in a patient with type 2 diabetes mellitus/polyneuropathy. We appreciate help from podiatry. MRI of left foot has been obtained. He does not show osteomyelitis. The patient is on IV vancomycin/IV Zosyn. Her pain is treated with when necessary [place] and/or Roxicodone. Infectious diseases is consulted to give us recommendations for antibiotic treatment. 1 of 2 blood cultures are growing gram-positive cocci (from 07/17/18). Hyperlipidemia. We will restart her Lipitor. Hypokalemia. Better after giving her a supplemental potassium chloride. - Exam Vitals: Temp Pulse Resp BP Pulse Ox 98.1 F 92 16 93/64 92 07/19/18 20:16 07/19/18 20:16 07/19/18 20:16 07/19/18 20:16 07/19/18 20:16 Exam: xx - Assessment and Plan (1) T2DM (type 2 diabetes mellitus) Current Visit: Yes Status: Chronic (2) T2DM (type 2 diabetes mellitus) Current Visit: Yes Status: Chronic (3) Cellulitis Current Visit: Yes Status: Acute (4) HLD (hyperlipidemia) Current Visit: Yes Status: Acute (5) Hypokalemia Current Visit: Yes Status: Acute - Time Spent with Patient Total time spent is greater than 50% in coordination of care (as documented) at patient's floor/unit and/or counseling patient: 25 - 35 minutes Plan of Care Discussed with: patient Internal Medicine: Result - Labs CBC & Chem 7: 07/18/18 05:54 07/18/18 05:54 Consult Discharge Plan - Plan Additional Instructions: Follow up in wound clinic with Dr. Acuna. Please make appointment prior to d/c. Referrals: Stephanie Campbell MD [Primary Care Provider] - Beto Acuna DPM [Partnered Physician] - (1) T2DM (type 2 diabetes mellitus) Qualifiers: Diabetes mellitus senior living insulin use: with termite control representative use Diabetes mellitus complication status: with skin complications Diabetes mellitus complication de tail: with foot ulcer Qualified Code(s): E11.621 - Type 2 diabetes mellitus with foot ulcer; L97.509 - Non-pressure chronic ulcer of other part of unspecified foot with unspecified severity; Z79.4 - terminal block assembler (current) use of insulin (2) T2DM (type 2 diabetes mellitus) Qualifiers: Diabetes mellitus termite control representative insulin use: with senior living use Diabetes mellitus complication status: with neurologic complications Diabetes mellitus complication detail: with polyneuropathy Qualified Code(s): E11.42 - Type 2 diabetes mellitus with diabetic polyneuropathy; Z79.4 - prison (current) use of insulin (3) Cellulitis Qualifiers: Site of cellulitis: extremity Site of cellulitis of extremity: lower extr emity Laterality: left Qualified Code(s): L03.116 - Cellulitis of left lower limb (4) HLD (hyperlipidemia) Qualifiers: Hyperlipidemia type: unspecified Qualified Code(s): E78.5 - Hyperlipidemia, unspecified
[2018-07-20] MEDS: Piperacillin/Tazobactam 3.375 GM in 0.9 % Sodium Chloride Mini Bag 100 ML IVPB SCH ×2 (00:01→07:35)
[2018-07-20] MEDS: *HR* Enoxaparin 40 MG/0.4 ML SYRINGE SQ SCH (06:22)
[2018-07-20] MEDS: Nicotine 7 MG PATCH.TD24 TD SCH (07:35)
[2018-07-20] MEDS: Insulin LISPRO 300 UNITS/3 ML VIAL SQ SCH ×4 (07:37→20:28)
[2018-07-20 10:08] LABS: Basophils # 0.1 K/mcL (0.0-0.2); Basophils % 0.7 %; Eosinophils # 0.2 K/mcL (0.0-0.6); Eosinophils % 1.6 %; Hematocrit 46.2 % (35.3-44.9); Hemoglobin 14.7 g/dL (11.5-15.4); Immature Granulocytes % 0.9 % (0-4); Lymphocytes # 2.4 K/mcL (0.6-4.6); Lymphocytes % 18.3 %; Mean Corpuscular HGB Conc 31.8 g/dL (31.6-35.5); Mean Corpuscular Hemoglobin 28.4 pg (28.0-33.3); Mean Corpuscular Volume 89.2 fL (83.0-100.0); Mean Platelet Volume 10.2 fL (9.4-12.4); Monocytes # 0.9 K/mcL (0.0-1.3); Monocytes % 6.8 %; Neutrophils # 9.2 K/mcL (1.6-8.9); Platelet Count 251 K/mcL (140-400); Red Blood Count 5.18 M/mcL (3.82-4.97); Red Cell Distribution Width 14.3 % (11.5-14.5); Segmented Neutrophils % 71.7 %
[2018-07-20 10:28] LABS: BUN/Creatinine Ratio 18 (6-26); Blood Urea Nitrogen 9 mg/dL (6-20); Calcium 9.1 mg/dL (8.6-10.3); Carbon Dioxide 28 mEq/L (23-29); Chloride 103 mEq/L (98-107); Glucose 257 mg/dL (70-105); Osmolality,Calculated 293 (280-300); Potassium 4.1 mEq/L (3.5-5.1); Sodium 138 mEq/L (136-145); eGFR For Non-African Americans > 60 (> 60)
[2018-07-20] MEDS: Acetaminophen 325 MG TABLET PO PRN (15:16)
[2018-07-20] MEDS: cefTRIAXone 2,000 MG in Water for inj. (sterile) 20 ML 20 ML IVP SCH (15:17)
--- NOTE | 2018-07-20 16:26 | Infectious Disease Consult ---
Date of Encounter: 07/20/18 Time of Encounter: 10:15 Assessment and Plan (1) Cellulitis Status: Acute Assessment and plan: - Meets 1/4 sirs criteria on admission with leukocytosis of 12.7 - ESR 63, CRP 75 - Blood cultures on 07/17 positive MRSE 1. This is likely a contaminant - Outpatient wound cultures from podiatry office growing group B strep - X-ray of foot on 07/17 shows evidence of ulceration without evidence of osteomyelitis - CT of foot on 07/17 shows age indeterminate erosion in the third metatarsal head. Also soft tissue ulceration to the second and third head of the tarsals. No evidence of osteomyelitis. - MRI obtained on 07/18 of foot shows no convincing evidence of osteomyelitis. Chronic-appearing wound. Mild circumferential subcutaneous edema of calf and dorsal mid forefoot compatible with cellulitis. - Also obtained was a Doppler of the left extremity on 07/17 which was negative Also pertinent: On 09/07/17 performed was an osteotomy with metatarsal and internal fixation with implanted screw by Dr. Acuna. Admission to [facility] as stated in history of present illness - Has been treated on vancomycin and Zosyn, day #4 Plan - We will de-escalate to Rocephin 2 g daily day #1 - As we have a causative organism of the group B strep, Rocephin will cover this. - MRSE and blood cultures is likely a contaminant. We will replete repeat blood cultures today - Duration of treatment depends on clinical picture - Further wound management per podiatry and primary team Qualifiers: Site of cellulitis: extremity Site of cellulitis of extremity: lower extremity Laterality: left Qualified Code(s): L03.116 - Cellulitis of left lower limb (2) Wound of foot Status: Acute Assessment and plan: As above Further management per podiatry (3) T2DM (type 2 diabetes mellitus) Status: Chronic Assessment and plan: - Poorly controlled based on patient testimonial - Likely contributing to foot ulceration and infection Qualifiers: Diabetes mellitus senior care insulin use: with continuous churn buttermaker use Diabetes mellitus complication status: with neurologic complications Diabetes mellitus complication detail: with polyneuropathy Qualified Code(s): E11.42 - Type 2 diabetes mellitus with diabetic polyneuropathy; Z79.4 - detention (current) use of insulin Infectious Disease HPI - Data of Consult Patient: new to practice Consult date: 07/20/18 Requesting Physician: Eliu Eagle Primary Care Provider: Stephanie Campbell MD - Consult Narrative Reason for consult: Diabetic ulcer/cellulitis of left foot History of present illness: Ms. Romero is a 42 year old female presents to ER from podiatry office for non- healing ulcer on left foot on 07/17/18. Infectious disease is consulted for diabetic ulcer/cellulitis of left foot on 07/19/18. PMH of nonhealing ulcer on left foot for 2 years who patient has been seeing Dr. Acuna for, recent admission to [place] for possible osteomyelitis a month and a half ago which was treated with 5 days of vancomycin and Zosyn and discharged home on unknown oral antibiotics., uterine cancer S/P total hysterectomy, GERD, hyperlipidemia and type 2 diabetes. Patient arrived to the ER from the advice of Dr. Acuna who was seeing her in [facility]. Patient was afebrile, non-tachycardiac and non-tachypne. She had a WBC of 12.7. Her ESR and CRP 63 and 75 respectively. Blood cultures x2 were obtained. 1 blood culture came back positive for staph epididymis but the other came back negative and thus the positive culture may be a containment. She had a Left foot XR on 07/17/18 that showed ulceration along left ball of foot without evidence of osteomyelitis. She had a left lower extremity CT on 07/17/18 that showed diffuse subcutaneous fat stranding compatible with cellulitis. Left foot MRI on 07/18/18 showed no convincing evidence of osteomyelitis or other acute osseous abnormality. Patient has since remained afebrile throughout her hospital course and had intermittent tachycardia. She is afebrile with a WBC of 12.9 with normal differentiation today. She was initially started on IV zoysn and vancomycin and completed 3 days of both. Podiatry has been following and does not have concerns for osteomyelitis at this time. Today during interview, patient was seen and examined. She states that overall she is doing very well. Her erythema, swelling, warmth has greatly improved. Initially she states, the erythema was as high as her knee as well as a purplish color on her left ankle. She is denying any symptoms of fevers, chills, chest pain, shortness of breath but does admit to some nausea without vomiting. She has not noticed any drainage from her wound dressings. She states that this wound has been bothering here for almost 2 years and she does follow with podiatry and the wound clinic. She has been admitted to [facility] once before with this approximately 2 months ago after she was sent by her primary care physician for concerns for osteomyelitis. She states the workup there was negative and she received vancomycin and Zosyn and was discharged on unknown oral antibiotic. She also admits to not taking her blood sugars regularly but she states she normally runs in the 130s. CC: Eliu Eagle Past Med Surg Social Fam HX - Past Medical History Medical history: cancer, diabetes, GERD Psychiatric history: no psych history - Past Surgical History Surgical History: , hysterectomy Additional surgical history: foot surgery - Social History Smoking Status: Current every day smoker Packs per day: 1/2 Smokeless Tobacco Status: No Alcohol use: none Drug use: none - Family History Mother Name: Jaida Aguero Age: 62 Family Member Ethnicity: Non- Living Status: Still Living Hx Family Cardiac Disorders: Yes Hx Family Respiratory Disorders: Yes Hx Family GI Disorders: Yes Hx Family Endocrine Disorder: Yes Hx Family Psychosocial Disorders: Yes Infectious Disease-CN:Meds Atorvastatin [Lipitor] 40 mg PO HS 09/07/17 [History] Ergocalciferol (VITAMIN D2) [Vitamin D2] 50,000 unit PO SA 09/07/17 [History] RX: Gabapentin [Neurontin] 300 mg PO TID 09/07/17 [History] Dicyclomine Hcl [Bentyl] 20 mg PO TID 07/17/18 [History] RX: Insulin Degludec [Tresiba Flextouch U-100] 30 unit SQ DAILY 07/17/18 [History] Allergy/AdvReac Type Severity Reaction Status Date / Time pregabalin [From Lyrica] Allergy Dizziness Verified 07/17/18 15:49 Review of systems: - Constitutional: Denies fevers, chills, weight loss, generalized fatigue - EENT: Admits to headache. Denies rhinorrhea, congestion, sore throat, odynaphagia - CVS: Denies chest pain, palpitations, VEGAS, orthopnea, PND, - Pulm: Denies SOB, cough, sputum,wheezing - GI: Admits to nausea. Denies abdominal pain, vomiting, diarrhea, constipation, melena - : Denies dysuria, increased frequency, urgency, hematuria, - MSK: Denies joint pain, limited ROM - Skin: Admits to erythema, swelling of left lower extremity. Also admits to chronic ulceration of the ball of her left foot. - Neuro: Denies DSOUZA, paresthesias, focal deficits, ataxia, Exam - Constitutional Vitals: Temp Pulse Resp BP Pulse Ox 98.9 F 101 18 112/77 96 07/20/18 12:10 07/20/18 12:10 07/20/18 12:10 07/20/18 12:10 07/20/18 12:10 Exam: Gen.: Vitals noted. No acute distress. AAOx3 HEENT: PERRL/EOMI, oropharynx clear, Normocephalic, atraumatic, MMM Cardiac: RRR, no murmur, +S1/S2 Pulmonary: CTA bilaterally, no wheezes, rales or rhonchi, equal chest expansion Abdomen: soft, nontender, BS noted, no guarding, no rebound. MSK: no joint swelling noted Extremities: Left lower extremity in a protective boot, very minimal evidence of erythema. No drainage or discharge appreciated on bandages. no BLE edema, nontender calf, no cyanosis or clubbing Neuro: A&Ox3, moves all extremities, no focal deficits Psych: Appropriate mood and behavior Infectious Disease CN: Results - Labs CBC & Chem 7: 07/20/18 09:52 07/20/18 09:52 Cultures: Cultures 07/20/18 09:44 Blood Culture - Preliminary Peripheral Venipuncture Culture is incubating and being continuously monitored for growth. Final report to follow. 07/20/18 09:40 Blood Culture - Preliminary Peripheral Venipuncture Culture is incubating and being continuously monitored for growth. Final report to follow. 07/17/18 17:09 Blood Culture - Final Peripheral Venipuncture Staphylococcus epidermidis 07/17/18 17:02 Blood Culture - Preliminary Peripheral Venipuncture Culture is incubating and being continuously monitored for growth. Final report to follow. Serology: Serology 07/17/18 Range/Units 17:09 A. baumannii (PCR) Not Detected (Not Detect) Gila albicans (PCR) Not Detected (Not Detect) C. glabrata (PCR) Not Detected (Not Detect) C. krusei (PCR) Not Detected (Not Detect) C. parapsilosis (PCR) Not Detected (Not Detect) C. tropicalis (PCR) Not Detected (Not Detect) Enterobacteriac sp PCR Not Detected (Not Detect) E. cloacae complex PCR Not Detected (Not Detect) Enterococcus sp PCR Not Detected (Not Detect) E. coli (PCR) Not Detected (Not Detect) H. influenzae (PCR) Not Detected (Not Detect) Klebsiella oxytoca PCR Not Detected (Not Detect) Klebsiella pneumoniae Not Detected (Not Detect) List. monocytogenes PCR Not Detected (Not Detect) N. meningitidis (PCR) Not Detected (Not Detect) Proteus species (PCR) Not Detected (Not Detect) Serratia marcescens PCR Not Detected (Not Detect) Staphylococcus sp PCR DETECTED A (Not Detect) Staph aureus (PCR) Not Detected (Not Detect) mecA-Methicil Res Gene DETECTED A (Not Detect) Streptococcus sp PCR Not Detected (Not Detect) Group A Strep DNA Not Detected (Not Detect) Group B Strep (PCR) Not Detected (Not Detect) Strep pneumoniae (PCR) Not Detected (Not Detect) P. aeruginosa (PCR) Not Detected (Not Detect) Jacey/B-Vanco Res Genes N/A (Not Detect) KPC (blaKPC) Detect PCR N/A (Not Detect) Consult Discharge Plan - Plan Additional Instructions: Follow up in wound clinic with Dr. Acuna. Please make appointment prior to d/c. Referrals: Stephanie Campbell MD [Primary Care Provider] - Beto Acuna DPM [Partnered Physician] - - Attending Attestation I examined this patient and my medical decision-making was reviewed with the Resident Physician. I agree with the documented findings, disposition and treatment plan as described except to the extent set forth below. This is an addendum to original report dictated by resident physician. Please refer to residents note for full detail. Patient is a 42-year-old woman who lives here in [place] with her and 3 kids who has diabetes mellitus type 2 that is poorly controlled currently on insulin with chronic diabetic foot ulcer for about 2 years now presented to [place] from the podiatrists office for nonhealing ulcer of left foot. We were consulted to make antibiotic recommendations. Since admission, patient has not been septic. Labs revealed an ESR of 63 and a CRP of 75. WBC and chemistry otherwise unremarkable. Patient had a wound culture obtained at the podiatrists office and it grew group B streptococcus. Since admission patient had multiple blood cultures and 1 out of 2 sets on July 17 was positive for staph epi repeat cultures on 07/20/2018 were negative. MRI of the lower extremity on 07/18/2018 revealed: No convincing evidence of osteomyelitis or other acute osseous abnormality. Chronic appearing deformity or erosion along the medial plantar surface of the third metatarsal head without bone marrow edema. Patient was empirically started on vancomycin and Zosyn. We were asked to evaluate the patient and make further recommendati ons. Assessment and plan: Diabetic foot ulcer with no obvious osteomyelitis on the MRI. ESR is mildly elevated and there is concerning but the MRI is a pretty sensitive tests. Patient was found culture obtained on 07/17/2018 Dr. An office, we will DC the vancomycin and Zosyn start patient on Rocephin 2 g IV every 24 hours. Duration of treatment depends on clinical picture but I would say at least 2 weeks worth of antibiotics. We can probably switch to oral antibiotic once clinically stable. Monitor labs and for drug toxicity on discharge consider discharging on amoxicillin or Augmentin to finish a 14 day course Continue aggressive wound care Adequate glucose control Smoking cessation
--- NOTE | 2018-07-20 16:59 | Podiatry Progress Note ---
Date of Encounter: 07/20/18 Time of Encounter: 15:30 - Assessment and Plan (1) Cellulitis Current Visit: Yes Status: Acute [place] stage II ulceration of the plantar aspect of the left foot with associated cellulitis Improved erythema, none noted to thigh area. Erythema noted to left calf and left foot, much improved from previous assessment. MRI reviewed no signs of osteomyelitis or acute abnormality. Xray negative for osteomyelitis CT scan shows possible erosion at the 3rd mt head- Continue elevation Blood cultures were obtained 07/17 positive for staph epidermis, cultures from 07/20 pending Gram stain from office also show gram-positive cocci. Wound cultures were obtained in office and showed strep agalactiae, group B. ID consulted for ATB management Will continue to follow. Recommend -plan for ECF placement if need for intermission coordinator IV ATB. -patient will need TCC outpatient setting. Plan for wound care follow up when d/c with Dr. Acuna Foot X-Ray 07/17/18 16:33 IMPRESSION: Ulceration along the ball of the foot, without radiographic evidence of osteomyelitis. D/ / Emile Troncoso MD / Emile Troncoso MD Interpreting Provider: Emile Troncoso MD Lower Extremity CT 07/17/18 17:00 IMPRESSION: 1. Possible age-indeterminate erosion along the medial plantar surface of the 3rd metatarsal head. If there is persistent clinical concern for osteomyelitis MRI could be obtained for further evaluation. 2. Shallow soft tissue ulceration plantar to the 2nd and 3rd metatarsal heads with underlying induration. No sinus tract or drainable fluid collection identified. Diffuse subcutaneous fat stranding compatible with cellulitis. D/ / Bran Campuzano MD / Bran Campuzano MD Interpreting Provider: Bran Campuzano MD R #: [id number] MR/MR lower leg LT wo/w con IMPRESSION: 1. No convincing evidence of osteomyelitis or other acute osseous abnormality. Chronic appearing deformity or erosion along the medial plantar surface of the 3rd metatarsal head without bone marrow edema. 2. Mild circumferential subcutaneous edema of the calf and moderate dorsal mid and forefoot subcutaneous edema compatible with sterile edema versus cellulitis. No drainable fluid collection. 3. Shallow soft tissue ulceration plantar to the 3rd MTP joint. No sinus tract or associated fluid collection. 4. Small volume of fluid in the 3rd interdigital space as can be seen with intermetatarsal bursitis. D/ / Bran Campuzano MD / Bran Campuzano MD Interpreting Provider: Bran Campuzano MD Qualifiers: Site of cellulitis: extremity Site of cellulitis of extremity: lower extremity Laterality: left Qualified Code(s): L03.116 - Cellulitis of left lower limb (2) Wound of foot Current Visit: Yes Status: Acute Dressing change completed by myself today. Cleanse daily with 0.9 normal saline Apply maxsorb AG, 4x4 dry gauze, and kerlix Nursing to change. Patient wearing post-op shoe. (3) T2DM (type 2 diabetes mellitus) Current Visit: Yes Status: Chronic Blood glucose levels in hospital 250s Primary managing. Recommend tight glycemic control to promote wound healing Qualifiers: Diabetes mellitus mcfp insulin use: with intermission coordinator use Diabetes mellitus complication status: with neurologic complications Diabetes mellitus complication detail: with polyneuropathy Qualified Code(s): E11.42 - Type 2 diabetes mellitus with diabetic polyneuropathy; Z79.4 - jail (current) use of insulin (4) Tobacco use Current Visit: Yes Status: Chronic Currently on nicotine patch. Patient states she is getting headaches and wonders if she is getting too much nicotine. States she smokes 1/2 PPD. Primary managing Discussed smoking cessation. Educated on wound healing and pathology related to smoking. Subjective Interval history: Patient awake up in chair. Alert and oriented x 3. Denies any overnight complications other than headache. at bedside. Objective - Vital Signs Vital Signs: Vital Signs Temp Pulse Resp BP Pulse Ox 07/20/18 16:37 86 16 94/64 93 07/20/18 12:10 98.9 F 101 18 112/77 96 07/20/18 07:04 98.9 F 84 16 94/70 93 07/20/18 04:36 98.2 F 93 17 97/64 93 07/19/18 23:09 98.4 F 90 16 90/64 92 07/19/18 20:16 98.1 F 92 16 93/64 92 Intake and Output 07/20/18 07/20/18 07/20/18 07:59 15:59 23:59 Intake Total 100 / 100 710 / 710 20 / 20 Balance 100 / 100 710 / 710 20 / 20 Intake: IV Fluids 100 / 100 350 / 350 20 / 20 Rocephin 2,000 MG In Water for inj. (sterile) 20 ML @ 600 mls/ hr IVP Q24H [facility]A Rx#:[id number] Zosyn 3.375 GM In 0.9 % Sodium 100 / 100 100 / 100 Chloride (Mini-Bag +) 100 ML @ 25 mls/hr IVPB Q8HR [facility]ILLA Rx#: [id number] Vancocin 1,500 MG In 0.9 % 250 / 250 Sodium Chloride 250 ML @ 166.67 mls/hr IVPB Q12H [facility] Rx#: [id number] Oral 360 / 360 Other: Meal Breakfast Percent of Meal Consumed 100% Blood Glucose* 145 122 153 - Lab Result Diagrams: 07/20/18 09:52 07/20/18 09:52 Labs: Abnormal lab results WBC 12.9 K/mcL (4.3-11.1) H 07/20/18 09:52 RBC 5.18 M/mcL (3.82-4.97) H 07/20/18 09:52 Hct 46.2 % (35.3-44.9) H 07/20/18 09:52 Neutrophils # 9.2 K/mcL (1.6-8.9) H 07/20/18 09:52 ESR 63 mm/hr (0-15) H 07/17/18 16:35 Creatinine 0.51 mg/dL (0.60-1.20) L 07/20/18 09:52 Glucose 257 mg/dL (70-105) H 07/20/18 09:52 POC Glucose 167 mg/dL (70-99) H 07/19/18 20:19 C-Reactive Protein 75 mg/L (Less than 10) H 07/17/18 16:36 Staphylococcus sp PCR DETECTED (Not Detect) A 07/17/18 17:09 mecA-Methicil Res Gene DETECTED (Not Detect) A 07/17/18 17:09 Microbiology, Last 48 Hours 07/20/18 09:44 Blood Culture - Preliminary Peripheral Venipuncture Culture is incubating and being continuously monitored for growth. Final report to follow. 07/20/18 09:40 Blood Culture - Preliminary Peripheral Venipuncture Culture is incubating and being continuously monitored for growth. Final report to follow. 07/17/18 17:09 Blood Culture - Final Peripheral Venipuncture Staphylococcus epidermidis Consult Discharge Plan - Plan Additional Instructions: Follow up in wound clinic with Dr. Acuna. Please make appointment prior to d/c. Referrals: Stephanie Campbell MD [Primary Care Provider] - Beto Acuna DPM [Partnered Physician] -
--- NOTE | 2018-07-20 22:04 | Internal Med Progress Note ---
Hospitalist Progress Note - Encounter Date of Encounter: 07/20/18 Time of Encounter: 19:00 - Subjective Interval History: SUBJECTIVE: She feels good. Her left foot pain is under control. She is able to walk a little bit on her own. Denies chest pain and difficulty breathing. Denies coughing and wheezing. Denies abdominal pain, nausea and vomiting. She has normal urination. OBJECTIVE: Skin: For description of left foot diabetic ulcer/cellulitis see notes from podiatry. The rest of the skin is normal in appearance. ENMT: Oral/pharyngeal mucosa is normal in appearance. Eyes: Sclera is white. There is no discharge from eyes. Respiratory: Normal breath sounds; no crackles or wheezes. CV: Heart is regular; no gallop or murmur. GI: Abdomen is soft and not tender. There is no palpable mass or visceromegaly. Neuro: There is no focal deficits. ADDITIONAL DATA: I am ordering CBC and BMP for tomorrow. ASSESSMENT AND PLAN: Diabetic ulcer/cellulitis of left foot in a patient with type 2 diabetes mellitus/polyneuropathy. We appreciate help from podiatry/infectious diseases. MRI of left foot has been obtained. He does not show osteomyelitis. IV vancomycin and IV Zosyn have been discontinued. The patient is started on IV Rocephin; wound cultures are showing group B Streptococcus. Her pain is treated with when necessary Lillian and/or Roxicodone. Hyperlipidemia. We will restart her Lipitor. Hypokalemia. Better after giving her a supplemental potassium chloride. - Exam Vitals: Temp Pulse Resp BP Pulse Ox 97.7 F 85 16 104/72 92 07/20/18 20:16 07/20/18 20:16 07/20/18 20:16 07/20/18 20:16 07/20/18 20:16 Exam: xx - Assessment and Plan (1) T2DM (type 2 diabetes mellitus) Current Visit: Yes Status: Chronic (2) T2DM (type 2 diabetes mellitus) Current Visit: Yes Status: Chronic (3) Cellulitis Current Visit: Yes Status: Acute (4) HLD (hyperlipidemia) Current Visit: Yes Status: Acute (5) Hypokalemia Current Visit: Yes Status: Acute - Time Spent with Patient Total time spent is greater than 50% in coordination of care (as documented) at patient's floor/unit and/or counseling patient: 25 - 35 minutes Plan of Care Discussed with: patient Internal Medicine: Result - Labs CBC & Chem 7: 07/20/18 09:52 07/20/18 09:52 Labs: Short CBC 07/20/18 Range/Units 09:52 WBC 12.9 H (4.3-11.1) K/mcL Hgb 14.7 (11.5-15.4) g/dL Hct 46.2 H (35.3-44.9) % Plt Count 251 (140-400) K/mcL Neutrophils # 9.2 H (1.6-8.9) K/mcL BMP 07/20/18 09:52 Sodium 138 Potassium 4.1 Chloride 103 Carbon Dioxide 28 BUN 9 Creatinine 0.51 L Glucose 257 H Calcium 9.1 Consult Discharge Plan - Plan Additional Instructions: Follow up in wound clinic with Dr. Acuna. Please make appointment prior to d/c. 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 Diabetes mellitus complication status: with skin complications Diabetes mellitus complication detail: with foot ulcer Qualified Code(s): E11.621 - Type 2 diabetes mellitus with foot ulcer; L97.509 - Non-pressure chronic ulcer of other part of unspecified foot with unspecified severity; Z79.4 - snf (current) use of insulin (2) T2DM (type 2 diabetes mellitus) Qualifiers: Diabetes mellitus retirement insulin use: with retirement use Diabetes mellitus complication status: with neurologic complications Diabetes mellitus complication detail: with polyneuropathy Qualified Code(s): E11.42 - Type 2 diabetes mellitus with diabetic polyneuropathy; Z79.4 - termination clerk (current) use of insulin (3) Cellulitis Qualifiers: Site of cellulitis: extremity Site of cellulitis of extremity: lower extremity Laterality: left Qualified Code(s): L03.116 - Cellulitis of left lower limb (4) HLD (hyperlipidemia) Qualifiers: Hyperlipidemia type: unspecified Qualified Code(s): E78.5 - Hyperlipidemia, unspecified
[2018-07-21] MEDS: *HR* Enoxaparin 40 MG/0.4 ML SYRINGE SQ SCH (05:09)
[2018-07-21 06:31] LABS: Basophils # 0.1 K/mcL (0.0-0.2); Basophils % 0.5 %; Eosinophils # 0.2 K/mcL (0.0-0.6); Eosinophils % 1.5 %; Hematocrit 45.6 % (35.3-44.9); Hemoglobin 14.5 g/dL (11.5-15.4); Immature Granulocytes % 0.8 % (0-4); Lymphocytes # 2.3 K/mcL (0.6-4.6); Lymphocytes % 15.3 %; Mean Corpuscular HGB Conc 31.8 g/dL (31.6-35.5); Mean Corpuscular Hemoglobin 27.8 pg (28.0-33.3); Mean Corpuscular Volume 87.5 fL (83.0-100.0); Mean Platelet Volume 10.6 fL (9.4-12.4); Monocytes % 6.9 %; Neutrophils # 11.3 K/mcL (1.6-8.9); Platelet Count 280 K/mcL (140-400); Red Blood Count 5.21 M/mcL (3.82-4.97); Red Cell Distribution Width 14.1 % (11.5-14.5)
[2018-07-21 06:42] LABS: BUN/Creatinine Ratio 23 (6-26); Blood Urea Nitrogen 10 mg/dL (6-20); Calcium 9.2 mg/dL (8.6-10.3); Carbon Dioxide 27 mEq/L (23-29); Chloride 104 mEq/L (98-107); Glucose 149 mg/dL (70-105); Osmolality,Calculated 288 (280-300); Potassium 4.1 mEq/L (3.5-5.1); Sodium 138 mEq/L (136-145); eGFR For Non-African Americans > 60 (> 60)
[2018-07-21] MEDS: Nicotine 7 MG PATCH.TD24 TD SCH (08:16)
[2018-07-21] MEDS: Insulin LISPRO 300 UNITS/3 ML VIAL SQ SCH ×4 (08:16→20:30)
[2018-07-21] MEDS: cefTRIAXone 2,000 MG in Water for inj. (sterile) 20 ML 20 ML IVP SCH (16:07)
--- NOTE | 2018-07-21 21:39 | Internal Med Progress Note ---
Hospitalist Progress Note - Encounter Date of Encounter: 07/21/18 Time of Encounter: 19:00 - Subjective Interval History: SUBJECTIVE: She is basically the same. Her left foot pain is under control. She is able to ambulate on her own. Denies chest pain, dyspnea, coughing and wheezing. Denies abdominal pain, nausea and vomiting. She has normal urination. OBJECTIVE: Skin: For description of left foot diabetic ulcer/cellulitis see notes from podiatry. The rest of the skin is normal in appearance. ENMT: Oral/pharyngeal mucosa is normal in appearance. Eyes: Sclera is white. There is no discharge from eyes. Respiratory: Normal breath sounds; no crackles or wheezes. CV: Heart is regular; no gallop or murmur. GI: Abdomen is soft and not tender. There is no palpable mass or visceromegaly. Neuro: There is no focal deficits. ADDITIONAL DATA: WBC is 15.0 thousand; 12.9 thousand yesterday and 10.9 thousand 3 days ago. BMP is normal. ASSESSMENT AND PLAN: Diabetic ulcer/cellulitis of left foot in a patient with type 2 diabetes mellitus/polyneuropathy. We appreciate help from podiatry/infectious diseases. MRI of left foot has been obtained. He does not show osteomyelitis. IV vancomycin and IV Zosyn have been discontinued. The patient is on IV Rocephin; wound cultures are showing group B Streptococcus. Her pain is treated with when necessary [place] and/or Roxicodone. Hyperlipidemia. We will restart her Lipitor. Hypokalemia. Better after giving her a supplemental potassium chloride. DISPOSITION: This patient will be likely discharged on Monday (after tomorrow), if she remains stable on IV Rocephin. - Exam Vitals: Temp Pulse Resp BP Pulse Ox 100.0 F H 112 16 124/79 92 07/21/18 19:29 07/21/18 19:29 07/21/18 19:29 07/21/18 19:29 07/21/18 19:29 Exam: xx - Assessment and Plan (1) T2DM (type 2 diabetes mellitus) Current Visit: Yes Status: Chronic (2) T2DM (type 2 diabetes mellitus) Current Visit: Yes Status: Chronic (3) Cellulitis Current Visit: Yes Status: Acute (4) HLD (hyperlipidemia) Current Visit: Yes Status: Acute (5) Hypokalemia Current Visit: Yes Status: Acute - Time Spent with Patient Total time spent is greater than 50% in coordination of care (as documented) at patient's floor/unit and/or counseling patient: 25 - 35 minutes Plan of Care Discussed with: patient Internal Medicine: Result - Labs CBC & Chem 7: 07/21/18 05:46 07/21/18 05:46 Labs: Short CBC 07/21/18 Range/Units 05:46 WBC 15.0 H (4.3-11.1) K/mcL Hgb 14.5 (11.5-15.4) g/dL Hct 45.6 H (35.3-44.9) % Plt Count 280 (140-400) K/mcL Neutrophils # 11.3 H (1.6-8.9) K/mcL BMP 07/21/18 05:46 Sodium 138 Potassium 4.1 Chloride 104 Carbon Dioxide 27 BUN 10 Creatinine 0.44 L Glucose 149 H Calcium 9.2 Consult Discharge Plan - Plan Additional Instructions: Follow up in wound clinic with Dr. Acuna. Please make appointment prior to d/c. Referrals: Stephanie Campbell MD [Primary Care Provider] - Beto Acuna DPM [Partnered Physician] - (1) T2DM (type 2 diabetes mellitus) Qualifiers: Diabetes mellitus termite control service representative insulin use: with termite control service representative use Diabetes mellitus complication status: with skin complications Diabetes mellitus complication detail: with foot ulcer Qualified Code(s): E11.621 - Type 2 diabetes mellitus with foot ulcer; L97.509 - Non-pressure chronic ulcer of other part of unspecified foot with unspecified severity; Z79.4 - termite control technician (current) use of insulin (2) T2DM (type 2 diabetes mellitus) Qualifiers: Diabetes mellitus correction insulin use: with termite control service representative use Diabetes mellitus complication status: with neurologic complications Diabetes mellitus complication detail: with polyneuropathy Qualified Code(s): E11.42 - Type 2 diabetes mellitus with diabetic polyneuropathy; Z79.4 - termite control technician (current) use of insulin (3) Cellulitis Qualifiers: Site of cellulitis: extremity Site of cellulitis of extremity: lower extremity Laterality: left Qualified Code(s): L03.116 - Cellulitis of left lower limb (4) HLD (hyperlipidemia) Qualifiers: Hyperlipidemia type: unspecified Qualified Code(s): E78.5 - Hyperlipidemia, unspecified
[2018-07-22] MEDS: *HR* Enoxaparin 40 MG/0.4 ML SYRINGE SQ SCH (05:47)
[2018-07-22] MEDS: Insulin LISPRO 300 UNITS/3 ML VIAL SQ SCH ×4 (07:42→21:15)
[2018-07-22] MEDS: Nicotine 7 MG PATCH.TD24 TD SCH (07:42)
[2018-07-22] MEDS: cefTRIAXone 2,000 MG in Water for inj. (sterile) 20 ML 20 ML IVP SCH (14:08)
--- NOTE | 2018-07-22 20:22 | Internal Med Progress Note ---
Hospitalist Progress Note - Encounter Date of Encounter: 07/22/18 Time of Encounter: 19:00 - Subjective Interval History: SUBJECTIVE: The patient had fever of 100.0 yesterday evening. Her WBC from yesterday was 15.0 thousand (10.9 thousand was 3 days earlier). She feels good. She uses a special boot for ambulation. Denies chest pain and difficulty breathing. Denies coughing and wheezing. Denies abdominal pain, nausea and vomiting. She has normal urination. OBJECTIVE: Skin: For description of left foot diabetic ulcer/cellulitis see notes from podiatry. The rest of the skin is normal in appearance. ENMT: Oral/pharyngeal mucosa is normal in appearance. Eyes: Sclera is white. There is no discharge from eyes. Respiratory: Normal breath sounds; no crackles or wheezes. CV: Heart is regular; no gallop or murmur. GI: Abdomen is soft and not tender. There is no palpable mass or visceromegaly. Neuro: There is no focal deficits. ADDITIONAL DATA: We are repeating her blood cultures. I will order CBC with BMP for tomorrow morning. ASSESSMENT AND PLAN: Diabetic ulcer/cellulitis of left foot in a patient with type 2 diabetes mellitus/polyneuropathy. We appreciate help from podiatry/infectious diseases. MRI of left foot has been obtained. He does not show osteomyelitis. IV vancomycin and IV Zosyn have been discontinued. The patient is on IV Rocephin; wound cultures are showing group B Streptococcus. Her pain is treated with when necessary [place] and/or Roxicodone. CBC in the morning. Hyperlipidemia. We will restart her Lipitor. Hypokalemia. Better after giving her a supplemental potassium chloride. BMP in the morning. DISPOSITION: I am a little bit concerned about patient's yesterday spike a fever. I am also concerned about her rising WBC. I will discuss her discharge plan with infectious diseases. - Exam Vitals: Temp Pulse Resp BP Pulse Ox 98.3 F 111 17 103/66 93 07/22/18 19:17 07/22/18 19:17 07/22/18 19:17 07/22/18 19:17 07/22/18 19:17 Exam: xx - Assessment and Plan (1) T2DM (type 2 diabetes mellitus) Current Visit: Yes Status: Chronic (2) T2DM (type 2 diabetes mellitus) Current Visit: Yes Status: Chronic (3) Cellulitis Current Visit: Yes Status: Acute (4) HLD (hyperlipidemia) Current Visit: Yes Status: Acute (5) Hypokalemia Current Visit: Yes Status: Acute - Time Spent with Patient Total time spent is greater than 50% in coordination of care (as documented) at patient's floor/unit and/or counseling patient: 25 - 35 minutes Plan of Care Discussed with: patient Internal Medicine: Result - Labs CBC & Chem 7: 07/21/18 05:46 07/21/18 05:46 Consult Discharge Plan - Plan Additional Instructions: Follow up in wound clinic with Dr. Acuna. Please make appointment prior to d/c. Referrals: Stephanie Campbell MD [Primary Care Provider] - Beto Acuna DPM [Partnered Physician] - (1) T2DM (type 2 diabetes mellitus) Qualifiers: Diabetes mellitus mcc insulin use: with mcc use Diabetes mellitus complication status: with skin complications Diabetes mellitus complication detail: with foot ulcer Qualified Code(s): E11.621 - Type 2 diabetes mellitus with foot ulcer; L97.509 - Non-pressure chronic ulcer of other part of unspecified foot with unspecified severity; Z79.4 - powder compounder (current) use of insulin (2) T2DM (type 2 diabetes mellitus) Qualifiers: Diabetes mellitus criminal justice social worker insulin use: with mcc use Diabetes mellitus complication status: with neurologic complications Diabetes mellitus complicati on detail: with polyneuropathy Qualified Code(s): E11.42 - Type 2 diabetes mellitus with diabetic polyneuropathy; Z79.4 - MCC (current) use of insulin (3) Cellulitis Qualifiers: Site of cellulitis: extremity Site of cellulitis of extremity: lower extremity Laterality: left Qualified Code(s): L03.116 - Cellulitis of left lower limb (4) HLD (hyperlipidemia) Qualifiers: Hyperlipidemia type: unspecified Qualified Code(s): E78.5 - Hyperlipidemia, unspecified
[2018-07-23 04:43] LABS: Basophils # 0.1 K/mcL (0.0-0.2); Basophils % 0.6 %; Eosinophils # 0.3 K/mcL (0.0-0.6); Eosinophils % 1.9 %; Hematocrit 45.2 % (35.3-44.9); Hemoglobin 14.2 g/dL (11.5-15.4); Immature Granulocytes % 1.1 % (0-4); Lymphocytes # 2.6 K/mcL (0.6-4.6); Lymphocytes % 17.7 %; Mean Corpuscular HGB Conc 31.4 g/dL (31.6-35.5); Mean Corpuscular Hemoglobin 27.7 pg (28.0-33.3); Mean Corpuscular Volume 88.3 fL (83.0-100.0); Mean Platelet Volume 10.7 fL (9.4-12.4); Monocytes # 1.4 K/mcL (0.0-1.3); Monocytes % 9.6 %; Platelet Count 261 K/mcL (140-400); Red Blood Count 5.12 M/mcL (3.82-4.97); Red Cell Distribution Width 14.2 % (11.5-14.5); Segmented Neutrophils % 69.1 %
[2018-07-23 05:01] LABS: BUN/Creatinine Ratio 24 (6-26); Blood Urea Nitrogen 12 mg/dL (6-20); Calcium 9.3 mg/dL (8.6-10.3); Carbon Dioxide 24 mEq/L (23-29); Chloride 103 mEq/L (98-107); Glucose 159 mg/dL (70-105); Osmolality,Calculated 285 (280-300); Potassium 3.8 mEq/L (3.5-5.1); Sodium 136 mEq/L (136-145); eGFR For Non-African Americans > 60 (> 60)
[2018-07-23] MEDS: *HR* Enoxaparin 40 MG/0.4 ML SYRINGE SQ SCH (05:20)
[2018-07-23] MEDS: Nicotine 7 MG PATCH.TD24 TD SCH (08:00)
[2018-07-23] MEDS: Insulin LISPRO 300 UNITS/3 ML VIAL SQ SCH ×4 (08:00→20:14)
--- NOTE | 2018-07-23 13:30 | Infectious Disease Progress No ---
Date of Encounter: 07/23/18 Time of Encounter: 11:45 - Assessment and Plan (1) Cellulitis Current Visit: Yes Status: Acute - Meets 1/4 sirs criteria on admission with leukocytosis of 12.7 - ESR 63, CRP 75 - Blood cultures on 07/17 positive MRSE 1. This is likely a contaminant - Repeat blood cultures on 07/20 negative for growth 2 - Outpatient wound cultures from podiatry office growing group B strep - X-ray of foot on 07/17 shows evidence of ulceration without evidence of osteomyelitis - CT of foot on 07/17 shows age indeterminate erosion in the third metatarsal head. Also soft tissue ulceration to the second and third head of the tarsals. No evidence of osteomyelitis. - MRI obtained on 07/18 of foot shows no convincing evidence of osteomyelitis. Chronic-appearing wound. Mild circumferential subcutaneous edema of calf and dorsal mid forefoot compatible with cellulitis. - Also obtained was a Doppler of the left extremity on 07/17 which was negative Also pertinent: On 09/07/17 performed was an osteotomy with metatarsal and internal fixation with implanted screw by Dr. Acuna. Admission to [facility] as stated in history of present illness - Has been treated on vancomycin and Zosyn, day #4, discontinued 07/20 - Rocephin 2 g day #4 Plan - Continue Rocephin 2 g while inpatient - Recommend continuation of IV rocephin 2g through 07/29/18. OK to discharge to [facility] from ID standpoint on IV abx - MRSE and blood cultures is likely a contaminant. - Duration of treatment depends on clinical picture - Further wound management per podiatry and primary team Qualifiers: Site of cellulitis: extremity Site of cellulitis of extremity: lower extremity Laterality: left Qualified Code(s): L03.116 - Cellulitis of left lower limb (2) Wound of foot Current Visit: Yes Status: Acute As above Further management per podiatry (3) T2DM (type 2 diabetes mellitus) Current Visit: Yes Status: Chronic - Poorly controlled based on patient testimonial - Likely contributing to foot ulceration and infection Qualifiers: Diabetes mellitus care home insulin use: with superintendent container terminal use Diabetes mellitus complication status: with neurologic complications Diabetes mellitus complication detail: with polyneuropathy Qualified Code(s): E11.42 - Type 2 diabetes mellitus with diabetic polyneuropathy; Z79.4 - termite treater helper (current) use of insulin - Subjective Interval history: Patient seen and examined at bedside. She states that overall she is doing very well with resolution of her symptoms. She has not noticed any further erythema, swelling, tenderness of her lower extremities. She had her dressing changed during interview this morning and has not noticed any drainage from the wound. Infect Dis PN-Objective Data - Labs CBC & Chem 7: 07/23/18 03:33 07/23/18 03:33 Labs: Laboratory Results - last 24 hr 07/21/18 07/21/18 07/21/18 11:46 16:21 21:20 WBC RBC Hgb Hct MCV MCH MCHC RDW Plt Count MPV Immature Gran % Seg Neutrophils % Lymphocytes % Monocytes % Eosinophils % Basophils % Neutrophils # Lymphocytes # Monocytes # Eosinophils # Basophils # Sodium Potassium Chloride Carbon Dioxide BUN Creatinine Est GFR ( Amer) Est GFR (Non-Af Amer) BUN/Creatinine Ratio Glucose POC Glucose 135 H 147 H 195 H Calculated Osmolality Calcium 07/22/18 07/22/18 07/22/18 06:53 10:54 16:55 WBC RBC Hgb Hct MCV MCH MCHC RDW Plt Count MPV Immature Gran % Seg Neutrophils % Lymphocytes % Monocytes % Eosinophils % Basophils % Neutrophils # Lymphocytes # Monocytes # Eosinophils # Basophils # Sodium Potassium Chloride Carbon Dioxide BUN Creatinine Est GFR ( Amer) Est GFR (Non-Af Amer) BUN/Creatinine Ratio Glucose POC Glucose 151 H 183 H 113 H Calculated Osmolality Calcium 07/22/18 07/23/18 07/23/18 21:17 03:33 03:33 WBC 14.4 H RBC 5.12 H Hgb 14.2 Hct 45.2 H MCV 88.3 MCH 27.7 L MCHC 31.4 L RDW 14.2 Plt Count 261 MPV 10.7 Immature Gran % 1.1 Seg Neutrophils % 69.1 Lymphocytes % 17.7 Monocytes % 9.6 Eosinophils % 1.9 Basophils % 0.6 Neutrophils # 10.0 H Lymphocytes # 2.6 Monocytes # 1.4 H Eosinophils # 0.3 Basophils # 0.1 Sodium 136 Potassium 3.8 Chloride 103 Carbon Dioxide 24 BUN 12 Creatinine 0.49 L Est GFR ( Amer) > 60 Est GFR (Non-Af Amer) > 60 BUN/Creatinine Ratio 24 Glucose 159 H POC Glucose 215 H Calculated Osmolality 285 Calcium 9.3 Cultures: Cultures 07/17/18 17:02 Blood Culture - Final Peripheral Venipuncture No growth. Final report. 07/20/18 09:44 Blood Culture - Preliminary Peripheral Venipuncture Culture is incubating and being continuously monitored for growth. Final report to follow. 07/20/18 09:40 Blood Culture - Preliminary Peripheral Venipuncture Culture is incubating and being continuously monitored for growth. Final report to follow. 07/17/18 17:09 Blood Culture - Final Peripheral Venipuncture Staphylococcus epidermidis Serology 07/17/18 Range/Units 17:09 A. baumannii (PCR) Not Detected (Not Detect) Gila albicans (PCR) Not Detected (Not Detect) C. glabrata (PCR) Not Detected (Not Detect) C. krusei (PCR) Not Detected (Not Detect) C. parapsilosis (PCR) Not Detected (Not Detect) C. tropicalis (PCR) Not Detected (Not Detect) Enterobacteriac sp PCR Not Detected (Not Detect) E. cloacae complex PCR Not Detected (Not Detect) Enterococcus sp PCR Not Detected (Not Detect) E. coli (PCR) Not Detected (Not Detect) H. influenzae (PCR) Not Detected (Not Detect) Klebsiella oxytoca PCR Not Detected (Not Detect) Klebsiella pneumoniae Not Detected (Not Detect) List. monocytogenes PCR Not Detected (Not Detect) N. meningitidis (PCR) Not Detected (Not Detect) Proteus species (PCR) Not Detected (Not Detect) Serratia marcescens PCR Not Detected (Not Detect) Staphylococcus sp PCR DETECTED A (Not Detect) Staph aureus (PCR) Not Detected (Not Detect) mecA-Methicil Res Gene DETECTED A (Not Detect) Streptococcus sp PCR Not Detected (Not Detect) Group A Strep DNA Not Detected (Not Detect) Group B Strep (PCR) Not Detected (Not Detect) Strep pneumoniae (PCR) Not Detected (Not Detect) P. aeruginosa (PCR) Not Detected (Not Detect) Jacey/B-Vanco Res Genes N/A (Not Detect) KPC (blaKPC) Detect PCR N/A (Not Detect) Exam - Constitutional Vitals: Temp Pulse Resp BP Pulse Ox 98.0 F 86 16 111/80 92 07/23/18 11:14 07/23/18 11:14 07/23/18 11:14 07/23/18 11:14 07/23/18 11:14 Exam: Gen.: Vitals noted. No acute distress. AAOx3 HEENT: PERRL/EOMI, oropharynx clear, Normocephalic, atraumatic, MMM Cardiac: RRR, no murmur, +S1/S2 Pulmonary: CTA bilaterally, no wheezes, rales or rhonchi, equal chest expansion Abdomen: soft, nontender, BS noted, no guarding, no rebound. MSK: ROM intact, no joint swelling noted Extremities: no BLE edema, nontender calf, no cyanosis or clubbing. Erythema resolved. Left foot ulcer on ball of foot which is clean and dry and no discharges appreciated Neuro: A&Ox3, moves all extremities, no focal deficits Psych: Appropriate mood and behavior Consult Discharge Plan - Plan Additional Instructions: Follow up in wound clinic with Dr. Acuna. Please make appointment prior to d/c. Referrals: Stephanie Campbell MD [Primary Care Provider] - 07/30/18 9:20 am (Please follow up as schedule....) Beto Acuna DPM [Partnered Physician] - 08/01/18 10:00 am (Please follow up as schedule...) - Attending Attestation I examined this patient and my medical decision-making was reviewed with the Resident Physician. I agree with the documented findings, disposition and tr eatment plan as described except to the extent set forth below.
--- NOTE | 2018-07-23 14:58 | Podiatry Progress Note ---
Date of Encounter: 07/23/18 Time of Encounter: 12:00 - Assessment and Plan (1) Cellulitis Current Visit: Yes Status: Acute Healing [place] stage II ulceration of the plantar aspect of the left foot with associated cellulitis PLAN Admitted for IV antibiotics- Managed on IV rocephin and plan to discharge on oral cephalaxin Minimal cellulitis noted on exam- healing ulceration noted. No drainage noted on exam. Patient had increase in WBC yesterday, 15.0, down today to 14.4 and patient afebrile. Patient reports that her PCP has told her for a long while that she runs an elevated WBC and she has had workups for it in the past. ESR 63 and CRP 75 Xray negative for osteomyelitis MRI negative for abscess or osseous involvement Continue elevation Cleansed with saline at bedside Maxsorb AG, 4x4 and kerlix applied Change daily while at home May be discharged when medically stable Diabetic cast boot to be delivered to bedside per bracing department prior to patients discharge Will need to follow up in wound care center with 1 week after dis charge, please make appointment prior to discharge Blood cultures showed likely contaminant and were repeated today Wound cultures showing Group B strep Protective weight bearing to heel of left foot only. Patient to be off of work until seen in wound care clinic and cleared by . Foot X-Ray 07/17/18 16:33 IMPRESSION: Ulceration along the ball of the foot, without radiographic evidence of osteomyelitis. D/ / Emile Troncoso MD / Emile Troncoso MD Interpreting Provider: Emile Troncoso MD Lower Extremity CT 07/17/18 17:00 IMPRESSION: 1. Possible age-indeterminate erosion along the medial plantar surface of the 3rd metatarsal head. If there is persistent clinical concern for osteomyelitis MRI could be obtained for further evaluation. 2. Shallow soft tissue ulceration plantar to the 2nd and 3rd metatarsal heads with underlying induration. No sinus tract or drainable fluid collection identified. Diffuse subcutaneous fat stranding compatible with cellulitis. D/ / Bran Campuzano MD / Bran Campuzano MD Interpreting Provider: Bran Campuzano MD Qualifiers: Site of cellulitis: extremity Site of cellulitis of extremity: lower extremity Laterality: left Qualified Code(s): L03.116 - Cellulitis of left lower limb (2) Wound of foot Current Visit: Yes Status: Acute Cleanse daily with saline, pat dry Apply maxsorb AG, 4x4 and kerlix Will need post operative shoe for offloading prior to discharge. Subjective Interval history: Following patient in regards to keating stage II ulceration to the plantar aspect of the left foot. patient up to chair on arrival, reports improvement in pain. States she had some chills yesterday but feels pretty good today. States she is ready to go home. Patient denies any known fevers, chills, n/v or fls. Objective - Vital Signs Vital Signs: Vital Signs Temp Pulse Resp BP Pulse Ox 07/23/18 11:14 98.0 F 86 16 111/80 92 07/23/18 06:46 98.3 F 89 16 99/67 90 07/23/18 03:37 98.3 F 88 17 111/75 90 07/22/18 23:21 98.1 F 99 91 130/83 07/22/18 19:17 98.3 F 111 17 103/66 93 07/22/18 16:18 99.5 F 94 18 105/71 93 Intake and Output 07/22/18 07/23/18 07/23/18 23:59 07:59 15:59 Intake Total 800 / 800 400 / 400 240 / 240 Output Total 240 / 240 Balance 800 / 800 400 / 400 0 / 0 Intake: Oral 800 / 800 400 / 400 240 / 240 Output: Urine 240 / 240 Other: Meal Lunch Percent of Meal Consumed 100% Weight 114 kg Blood Glucose* 215 162 175 - Exam Exam: Awake alert and oriented Warm toes to tibia Palpable +1/4 DP and PT pulses, cap refill <3 seconds, no pain with manual compression of calf 1+ pitting edema to GERARDO There is resolution of warmth, edema and erythema of associated cellulitis of the LLE There is a continued ulceration sub mt head #2 and #3 plantar aspect of left foot There is mild hyperkeratosis surrounding a healing keating stage II diabetic ulceration without probe to bone. There is scant serosang drainage noted. No odor noted. minimal surrounding edema, erythema and warmth. Movement of foot and ankle intact and without weakness 5/5 and equal bilaterally Diminished sensation to light or moderate touch related to polyneuropathy - Lab Result Diagrams: 07/23/18 03:33 07/23/18 03:33 Labs: Abnormal lab results WBC 14.4 K/mcL (4.3-11.1) H 07/23/18 03:33 RBC 5.12 M/mcL (3.82-4.97) H 07/23/18 03:33 Hct 45.2 % (35.3-44.9) H 07/23/18 03:33 MCH 27.7 pg (28.0-33.3) L 07/23/18 03:33 MCHC 31.4 g/dL (31.6-35.5) L 07/23/18 03:33 Neutrophils # 10.0 K/mcL (1.6-8.9) H 07/23/18 03:33 Monocytes # 1.4 K/mcL (0.0-1.3) H 07/23/18 03:33 ESR 63 mm/hr (0-15) H 07/17/18 16:35 Creatinine 0.49 mg/dL (0.60-1.20) L 07/23/18 03:33 Glucose 159 mg/dL (70-105) H 07/23/18 03:33 POC Glucose 215 mg/dL (70-99) H 07/22/18 21:17 C-Reactive Protein 75 mg/L (Less than 10) H 07/17/18 16:36 Staphylococcus sp PCR DETECTED (Not Detect) A 07/17/18 17:09 mecA-Methicil Res Gene DETECTED (Not Detect) A 07/17/18 17:09 Microbiology, Last 48 Hours 07/17/18 17:02 Blood Culture - Final Peripheral Venipuncture No growth. Final report. Consult Discharge Plan - Plan Additional Instructions: Follow up in wound clinic with Dr. Acuna. Please make appointment prior to d/c. Referrals: Stephanie Campbell MD [Primary Care Provider] - 07/30/18 9:20 am (Please follow up as schedule....) Beto Acuna DPM [Partnered Physician] - 08/01/18 10:00 am (Please follow up as schedule...)
[2018-07-23] MEDS: cefTRIAXone 2,000 MG in Water for inj. (sterile) 20 ML 20 ML IVP SCH (16:00)
--- NOTE | 2018-07-23 23:13 | Internal Med Progress Note ---
Hospitalist Progress Note - Encounter Date of Encounter: 07/23/18 Time of Encounter: 13:00 - Subjective Interval History: SUBJECTIVE: The patient feels good. She has a special boot on her left foot. She is able to ambulate with it. He denies fever and chills. Her WBC remains [id number] thousand. OBJECTIVE: Skin: For description of left foot diabetic ulcer/cellulitis see notes from podiatry. The rest of the skin is normal in appearance. ENMT: Oral/pharyngeal mucosa is normal in appearance. Eyes: Sclera is white. There is no discharge from eyes. Respiratory: Normal breath sounds; no crackles or wheezes. CV: Heart is regular; no gallop or murmur. GI: Abdomen is soft and not tender. There is no palpable mass or visceromegaly. Neuro: There is no focal deficits. ADDITIONAL DATA: She has already had 4 blood cultures. Only the second one shows staph epidermidis. Wound culture done a couple days before this admission grew out group B strep. ASSESSMENT AND PLAN: Diabetic ulcer/cellulitis of left foot in a patient with type 2 diabetes m ellitus/polyneuropathy. We appreciate help from podiatry/infectious diseases. MRI of left foot has been obtained. He does not show osteomyelitis. IV vancomycin and IV Zosyn have been discontinued. The patient is on IV Rocephin; wound cultures are showing group B Streptococcus. Her pain is treated with when necessary Dolores and/or Roxicodone. Hyperlipidemia. We will restart her Lipitor. Hypokalemia. Better after giving her a supplemental potassium chloride. BMP in the morning. DISPOSITION: The patient will definitely benefit from wound care and IV Rocephin in ECF. A referral has been made. - Exam Vitals: Temp Pulse Resp BP Pulse Ox 99.4 F 91 16 108/74 91 07/23/18 19:18 07/23/18 19:18 07/23/18 19:18 07/23/18 19:18 07/23/18 19:18 Exam: xx - Assessment and Plan (1) T2DM (type 2 diabetes mellitus) Current Visit: Yes Status: Chronic (2) T2DM (type 2 diabetes mellitus) Current Visit: Yes Status: Chronic (3) Cellulitis Current Visit: Yes Status: Acute (4) HLD (hyperlipidemia) Current Visit: Yes Status: Acute (5) Hypokalemia Current Visit: Yes Status: Acute - Time Spent with Patient Total time spent is greater than 50% in coordination of care (as documented) at patient's floor/unit and/or counseling patient: 25 - 35 minutes Plan of Care Discussed with: patient Internal Medicine: Result - Labs CBC & Chem 7: 07/23/18 03:33 07/23/18 03:33 Labs: Short CBC 07/23/18 Range/Units 03:33 WBC 14.4 H (4.3-11.1) K/mcL Hgb 14.2 (11.5-15.4) g/dL Hct 45.2 H (35.3-44.9) % Plt Count 261 (140-400) K/mcL Neutrophils # 10.0 H (1.6-8.9) K/mcL BMP 07/23/18 03:33 Sodium 136 Potassium 3.8 Chloride 103 Carbon Dioxide 24 BUN 12 Creatinine 0.49 L Glucose 159 H Calcium 9.3 Consult Discharge Plan - Plan Additional Instructions: Follow up in wound clinic with Dr. Acuna. Please make appointment prior to d/c. Referrals: Stephanie Campbell MD [Primary Care Provider] - 07/30/18 9:20 am (Please follow up as schedule....) Beto Acuna DPM [Partnered Physician] - 08/01/18 10:00 am (Please follow up as schedule...) (1) T2DM (type 2 diabetes mellitus) Qualifiers: Diabetes mellitus nursing home insulin use: with oysterman use Diabetes mellitus complication status: with skin complications Diabetes mellitus complication detail: with foot ulcer Qualified Code(s): E11.621 - Type 2 diabetes mellitus with foot ulcer; L97.509 - Non-pressure chronic ulcer of other part of unspecified foot with unspecified severity; Z79.4 - detention (current) use of insulin (2) T2DM (type 2 diabetes mellitus) Qualifiers: Diabetes mellitus nursing home insulin use: with oysterman use Diabetes mellitus complication status: with neurologic complications Diabetes mellitus complication detail: with polyneuropathy Qualified Code(s): E11.42 - Type 2 diabetes mellitus with diabetic polyneuropathy; Z79.4 - detention (current) use of insulin (3) Cellulitis Qualifiers: Site of cellulitis: extremity Site of cellulitis of extremity: lower extremity Laterality: left Qualified Code(s): L03.116 - Cellulitis of left lower limb (4) HLD (hyperlipidemia) Qualifiers: Hyperlipidemia type: unspecified Qualified Code(s): E78.5 - Hyperlipidemia, unspecified
[2018-07-24] MEDS: *HR* Enoxaparin 40 MG/0.4 ML SYRINGE SQ SCH (06:07)
[2018-07-24] MEDS: Insulin LISPRO 300 UNITS/3 ML VIAL SQ SCH ×4 (07:54→21:06)
[2018-07-24] MEDS: Nicotine 7 MG PATCH.TD24 TD SCH (07:55)
--- NOTE | 2018-07-24 14:22 | Internal Med Progress Note ---
Hospitalist Progress Note - Encounter Date of Encounter: 07/24/18 Time of Encounter: 08:30 - Subjective Interval History: keren was seen and examined at bedside has no complaints, tolerating diet waiting for placement at ECF she denies fever, chills, CP, SOB, cough, palpitations, N/v/D - Exam Vitals: Temp Pulse Resp BP Pulse Ox 98.5 F 86 16 103/60 93 07/24/18 10:27 07/24/18 10:07/24/18 10:07/24/18 10:07/24/18 10:27 Exam: General: Patient is alert, oriented, no acute distress, obese Head: atraumatic, normocephalic, Eye: normal appearance, PERRL, no scleral icterus, no conjunctival injection ENT: mucous membranes moist, normal external ear exam Neck: normal inspection, trachea midline, full ROM, no carotid bruits Chest: normal inspection, symmetric chest rise Respiratory: Good respiratory effort. Bilateral breath sounds are clear without wheezing, crackles, or rhonchi. Cardiovascular: Regular rate and rhythm. s1 and s2 No clicks, rubs, gallops, or murmors. Abdomen: Bowel sounds present normoactive x-4 quadrants. Abdomen is soft, nondistended. no Epigastric tenderness. No guarding or rebound. No organomegaly noted, obese musculoskeletal: Spontaneously moving all extremities. +1 edema of LLE , no calf tenderness Skin: warm, dry, intact. There is resolution of warmth, edema and erythema of associated cellulitis of the LLE There is a continued ulceration sub mt head #2 and #3 plantar aspect of left foot There is mild hyperkeratosis surrounding a healing keating stage II diabetic ulceration without probe to bone. There is scant serosang drainage noted. No odor noted. minimal surrounding edema, erythema and warmth. Movement of foot and ankle intact and without weakness 5/5 and equal bilaterally Diminished sensation to light or moderate touch related to polyneuropathy Neuro: Alert and oriented x4. Sensation light touch intact. Cranial nerves 2- 12 is intact. no focal deficit Psych: Patient's affect is normal - Assessment and Plan (1) Cellulitis Current Visit: Yes Status: Acute Assessment and Plan: Healing [place] stage II ulceration of the plantar aspect of the left foot with associated cellulitis ESR 63 and CRP 75 Blood cultures on 07/17 positive MRSE 1. This is likely a contaminant Repeat blood cultures on 07/20 negative for growth 2 Outpatient wound cultures from podiatry office growing group B strep MRI negative for abscess or osseous involvement Doppler of the left extremity on 07/17 which was negative wound care as per podiatry to continue IV rocephin 2g through 07/29/18 MR: IMPRESSION: 1. No convincing evidence of osteomyelitis or other acute osseous abnormality. Chronic appearing deformity or erosion along the medial plantar surface of the 3rd metatarsal head without bone marrow edema. 2. Mild circumferential subcutaneous edema of the calf and moderate dorsal mid and forefoot subcutaneous edema compatible with sterile edema versus cellulitis. No drainable fluid collection. 3. Shallow soft tissue ulceration plantar to the 3rd MTP joint. No sinus tract or associated fluid collection. 4. Small volume of fluid in the 3rd interdigital space as can be seen with intermetatarsal bursitis. (2) T2DM (type 2 diabetes mellitus) Current Visit: Yes Status: Chronic Assessment and Plan: uncontrolled as A1c in april was 9.2 started her on levemir 10 units continue with sliding scale insulin and adjust as per finger sticks A1c in AM (3) HLD (hyperlipidemia) Current Visit: Yes Status: Acute Assessment and Plan: continue statins (4) Obesity (BMI 30-39.9) Current Visit: Yes Status: Acute Assessment and Plan: nutrition consult was counseled BMI 39.2 (5) DVT prophylaxis Current Visit: Yes Status: Acute Assessment and Plan: lovenox - Time Spent with Patient Total time spent is greater than 50% in coordination of care (as documented) at patient's floor/unit and/or counseling patient: Internal Medicine: Result - Labs CBC & Chem 7: 07/23/18 03:33 07/23/18 03:33 Consult Discharge Plan - Plan Additional Instructions: Follow up in wound clinic with Dr. Acuna. Please make appointment prior to d/c. Referrals: Stephanie Campbell MD [Primary Care Provider] - 07/30/18 9:20 am (Please follow up as schedule....) Beto Acuna DPM [Partnered Physician] - 08/01/18 10:00 am (Please follow up as schedule...) (1) Cellulitis Qualifiers: Site of cellulitis: extremity Site of cellulitis of extremity: lower extremity Laterality: left Qualified Code(s): L03.116 - Cellulitis of left lower limb (2) T2DM (type 2 diabetes mellitus) Qualifiers: Diabetes mellitus penitentiary insulin use: with meterman use Diabetes mellitus complication status: with neurologic complications Diabetes mellitus complication detail: with polyneuropathy Qualified Code(s): E11.42 - Type 2 diabetes mellitus with diabetic polyneuropathy; Z79.4 - local intermodal truck driver (current) use of insulin (3) HLD (hyperlipidemia) Qualifiers: Hyperlipidemia type: unspecified Qualified Code(s): E78.5 - Hyperlipidemia, unspecified
[2018-07-24] MEDS: cefTRIAXone 2,000 MG in Water for inj. (sterile) 20 ML 20 ML IVP SCH (15:02)
[2018-07-24] MEDS: Insulin DETEMIR 100 UNIT/ML X5UNITS SQ SCH (21:07)
[2018-07-25 06:13] LABS: Hematocrit 43.5 % (35.3-44.9); Hemoglobin 13.9 g/dL (11.5-15.4); Mean Corpuscular Volume 87.7 fL (83.0-100.0); Mean Platelet Volume 10.5 fL (9.4-12.4); Platelet Count 281 K/mcL (140-400); Red Blood Count 4.96 M/mcL (3.82-4.97)
[2018-07-25] MEDS: *HR* Enoxaparin 40 MG/0.4 ML SYRINGE SQ SCH (07:08)
[2018-07-25] MEDS: Insulin LISPRO 300 UNITS/3 ML VIAL SQ SCH ×4 (07:51→20:08)
[2018-07-25] MEDS: Nicotine 7 MG PATCH.TD24 TD SCH (07:51)
[2018-07-25 08:08] LABS: BUN/Creatinine Ratio 24 (6-26); Blood Urea Nitrogen 11 mg/dL (6-20); Calcium 9.2 mg/dL (8.6-10.3); Carbon Dioxide 26 mEq/L (23-29); Chloride 104 mEq/L (98-107); Glucose 166 mg/dL (70-105); Osmolality,Calculated 287 (280-300); Potassium 3.9 mEq/L (3.5-5.1); Sodium 137 mEq/L (136-145); eGFR For Non-African Americans > 60 (> 60)
--- NOTE | 2018-07-25 10:41 | Discharge Summary ---
- NOTES TO OUTPATIENT PROVIDER Notes to Outpatient Provider: follow up A1c was 9.2 in april. Will need to follow up in wound care center with 1 week after discharge. Patient to be off of work until seen in wound care clinic and cleared by . Orders not resulted at time of discharge: Pending orders 07/20/18 09:44 Culture,Blood [BC] Routine Date of Encounter: 07/25/18 Time of Encounter: 10:32 - Discharge Diagnosis (1) Cellulitis Priority: Primary Status: Acute Qualifiers: Site of cellulitis: extremity Site of cellulitis of extremity: lower extremity Laterality: left Qualified Code(s): L03.116 - Cellulitis of left lower limb (2) T2DM (type 2 diabetes mellitus) Priority: Secondary Status: Chronic Qualifiers: Diabetes mellitus manager long term care insulin use: with senior care use Diabetes mellitus complication status: with neurologic complications Diabetes mellitus complication detail: with polyneuropathy Qualified Code(s): E11.42 - Type 2 diabetes mellitus with diabetic polyneuropathy; Z79.4 - local intermodal truck driver (current) use of insulin (3) HLD (hyperlipidemia) Priority: Secondary Status: Acute Qualifiers: Hyperlipidemia type: unspecified Qualified Code(s): E78.5 - Hyperlipidemia, unspecified (4) Obesity (BMI 30-39.9) Priority: Secondary Status: Acute (5) DVT prophylaxis Priority: Secondary Status: Acute Hospital course: Ms. Romero is a 42 year old female with history of uterine cancer S/P total hysterectomy, GERD, hyperlipidemia and type 2 diabetes presents to ER from podiatry office for non-healing ulcer on left foot on 07/17/18. As per patient her ulcer has been not healing for the past 2 years and she has been following up with Dr. Acuna for the management of the ulcer as outpatient. She recently had an admission to [facility] for possible osteomyelitis a month before current admission and was treated with 5 days of vancomycin and Zosyn and then discharged home on unknown oral antibiotics. On admission she was found to have white blood cell count of 12.7 elevated ESR and CRP and was started on IV antibiotics. Podiatry and ID were consulted while she was inpatient. Blood cultures sent on admission and 1 blood culture came back positive for staph epididymis which was thought to be a contaminant. Blood cultures were resent on 07/20 and are no growth to date. X-ray of foot on 07/17 shows evidence of ulceration without evidence of osteo myelitis CT of foot on 07/17 shows age indeterminate erosion in the third metatarsal head. Also soft tissue ulceration to the second and third head of the tarsals. No evidence of osteomyelitis. MRI obtained on 07/18 of foot shows no convincing evidence of osteomyelitis. Chronic-appearing wound. Mild circumferential subcutaneous edema of calf and dorsal mid forefoot compatible with cellulitis. In addition Doppler of the left extremity on 07/17 which was negative. full report of above study is below. She was treated with vancomycin and Zosyn for 4 days and was changed to IV Rocephin 2 g and is to continue until 07/29/18. Physical therapy and rehabilitation or consulted and recommended ECF. Social work and case management were on board and she was accepted to facility. Diabetic cast boot was provided by the podiatry team. She is to be Protective weight bearing to heel of left foot only. Patient to be off of work until seen in wound care clinic and cleared by . Will need to follow up in wound care center with 1 week after discharge, discussed with the PIR to obtain appointment prior to discharge. she was counseled on importance of diet, nutrition and weight loss and she understands. she was counseled on smoking cessation and was provided nicotine patch. she was counseled om importance of medication compliance, along with insulin compliance. MRI IMPRESSION: 1. No convincing evidence of osteomyelitis or other acute osseous abnormality. Chronic appearing deformity or erosion along the medial plantar surface of the 3rd metatarsal head without bone marrow edema. 2. Mild circumferential subcutaneous edema of the calf and moderate dorsal mid and forefoot subcutaneous edema compatible with sterile edema versus cellulitis. No drainable fluid collection. 3. Shallow soft tissue ulceration plantar to the 3rd MTP joint. No sinus tract or associated fluid collection. 4. Small volume of fluid in the 3rd interdigital space as can be seen with intermetatarsal bursitis. CT IMPRESSION: 1. Possible age-indeterminate erosion along the medial plantar surface of the 3rd metatarsal head. If there is persistent clinical concern for osteomyelitis MRI could be obtained for further evaluation. 2. Shallow soft tissue ulceration plantar to the 2nd and 3rd metatarsal heads with underlying induration. No sinus tract or drainable fluid collection identified. Diffuse subcutaneous fat stranding compatible with cellulitis. Foot xray : IMPRESSION: Ulceration along the ball of the foot, without radiographic evidence of osteomyelitis. Discharge discussed with: patient, nurse, social work, case management, personnel consultant Time spent discussing smoking cessation with patient: 3 to 10 minutes (5 minutes) - Time Spent with Patient Total time spent providing and/or coordinating discharge services: Greater than 30 minutes (40) - Discharge Medications Prescriptions: Acetaminophen [Tylenol] 650 mg PO Q6HR PRN #30 tablet PRN Reason: Mild Pain/Fever Ceftriaxone Na/Dextrose,Iso [Ceftriaxone 2 gm Piggyback] 2 gm IV DAILY 4 Days froz.piggy Insulin LISPRO [HumaLOG] 0 units SQ TIDAC #1 vial Nicotine Patch [Nicoderm] 7 mg TD DAILY #30 patch.td24 Home Medications: Atorvastatin [Lipitor] 40 mg PO HS 09/07/17 [History] Ergocalciferol (VITAMIN D2) [Vitamin D2] 50,000 unit PO SA 09/07/17 [History] Gabapentin [Neurontin] 300 mg PO TID 09/07/17 [History] Dicyclomine Hcl [Bentyl] 20 mg PO TID 07/17/18 [History] Insulin Degludec [Tresiba Flextouch U-100] 30 unit SQ DAILY 07/17/18 [History] Acetaminophen [Tylenol] 650 mg PO Q6HR PRN #30 tablet 07/25/18 [Rx] Ceftriaxone Na/Dextrose,Iso [Ceftriaxone 2 gm Piggyback] 2 gm IV DAILY 4 Days froz.piggy 07/25/18 [Rx] Insulin LISPRO [HumaLOG] 0 units SQ TIDAC #1 vial 07/25/18 [Rx] Nicotine Patch [Nicoderm] 7 mg TD DAILY #30 patch.td24 07/25/18 [Rx] Allergies/Adverse Reactions: Allergy/AdvReac Type Severity Reaction Status Date / Time pregabalin [From Lyrica] Allergy Dizziness Verified 07/17/18 15:49 Date of admission: 07/22/18 18:52 Primary care physician: Stephanie Campbell MD Consults: 07/17/18 17:11 Consult to Podiatry [CONS] Stat Consulting Provider: [facility] Reason for Consult: nonhealing ulcer to left foot Call Completed: Yes 07/19/18 16:27 Consult to Infectious Diseases [CONS] Routine Consulting Provider: Infectious Disease [facility] Reason for Consult: Diabetic ulcer/cellulitis of left foot. Time Notified: 16:15 Call Completed: Yes - Constitutional Vitals: Temp Pulse Resp BP Pulse Ox 98.2 F 88 16 110/78 92 07/25/18 07:03 07/25/18 07:03 07/25/18 07:03 07/25/18 07:03 07/25/18 07:03 General appearance: Present: A&O X 3, morbidly obese Exam: General: Patient is alert, oriented, no acute distress, obese Head: atraumatic, normocephalic, Eye: normal appearance, PERRL, no scleral icterus, no conjunctival injection ENT: mucous membranes moist, normal external ear exam Neck: normal inspection, trachea midline, full ROM, no carotid bruits Chest: normal inspection, symmetric chest rise Respiratory: Good respiratory effort. Bilateral breath sounds are clear without wheezing, crackles, or rhonchi. Cardiovascular: Regular rate and rhythm. s1 and s2 No clicks, rubs, gallops, or murmors. Abdomen: Bowel sounds present normoactive x-4 quadrants. Abdomen is soft, nondistended. no Epigastric tenderness. No guarding or rebound. No organomegaly noted, obese musculoskeletal: Spontaneously moving all extremities. +1 edema of LLE , no calf tenderness Skin: warm, dry, intact. There is resolution of warmth, edema and erythema of associated cellulitis of the LLE There is a continued ulceration sub mt head #2 and #3 plantar aspect of left foot There is mild hyperkeratosis surrounding a healing small stage II diabetic ulceration without probe to bone. There is scant serosang drainage noted. No odor noted. minimal surrounding edema, erythema and warmth. Movement of foot and ankle intact and without weakness 5/5 and equal bilaterally Diminished sensation to light or moderate touch related to polyneuropathy Neuro: Alert and oriented x4. Sensation light touch intact. Cranial nerves 2- 12 is intact. no focal deficit Psych: Patient's affect is normal - Patient Status Disposition: Transfer SNF Condition: Good Functional capacity at discharge: independent ambulation Overall status at discharge: patient is progressing back to baseline - Discharge Instructions Follow Up With: Stephanie Campbell MD [Primary Care Provider] - 07/30/18 9:20 am (Please follow up as schedule....) Beto Acuna DPM [Partnered Physician] - 08/01/18 10:00 am (Please follow up as schedule...) Additional Instructions: Follow up in wound clinic with Dr. Acuna. Please make appointment prior to d/c. - Diet and Activity Activity: as per physical therapy Diet: diabetic diet, low fat, low cholesterol
--- NOTE | 2018-07-25 11:57 | Physician Discharge Referral ---
ExtendedCare Referral Info Transfer To: snf Provider in Charge after Transfer: PCP Institutional Level of Care: Skilled - Diagnosis (1) Cellulitis Priority: Primary Status: Acute (2) T2DM (type 2 diabetes mellitus) Priority: Secondary Status: Chronic (3) HLD (hyperlipidemia) Priority: Secondary Status: Acute (4) Obesity (BMI 30-39.9) Priority: Secondary Status: Acute (5) DVT prophylaxis Priority: Secondary Status: Acute - Transfer Medications Prescriptions: Acetaminophen [Tylenol] 650 mg PO Q6HR PRN #30 tablet PRN Reason: Mild Pain/Fever Ceftriaxone Na/Dextrose,Iso [Ceftriaxone 2 gm Piggyback] 2 gm IV DAILY 4 Days froz.piggy Insulin LISPRO [HumaLOG] 0 units SQ TIDAC #1 vial Nicotine Patch [Nicoderm] 7 mg TD DAILY #30 patch.td24 Home Medications: Atorvastatin [Lipitor] 40 mg PO HS 09/07/17 [History] Ergocalciferol (VITAMIN D2) [Vitamin D2] 50,000 unit PO SA 09/07/17 [History] Dicyclomine Hcl [Bentyl] 20 mg PO TID 07/17/18 [History] Insulin Degludec [Tresiba Flextouch U-100] 30 unit SQ DAILY 07/17/18 [History] Acetaminophen [Tylenol] 650 mg PO Q6HR PRN #30 tablet 07/25/18 [Rx] Ceftriaxone Na/Dextrose,Iso [Ceftriaxone 2 gm Piggyback] 2 gm IV DAILY 4 Days froz.piggy 07/25/18 [Rx] Insulin LISPRO [HumaLOG] 0 units SQ TIDAC #1 vial 07/25/18 [Rx] Nicotine Patch [Nicoderm] 7 mg TD DAILY #30 patch.td24 07/25/18 [Rx] Allergies/Adverse Reactions: Allergy/AdvReac Type Severity Reaction Status Date / Time pregabalin [From Lyrica] Allergy Dizziness Verified 07/17/18 15:49 - Respiratory Orders Smoking Cessation: Smoking cessation has been advised. For more information, call the [place] Tobacco Quit Line at 2-948-ZMLP-NOW. - Advance Directives Code Status: Full Code - Rehabiliation Orders Rehab Orders: ROM Exercises, Evaluation for Physical Therapy, Evaluation for Occupational Therapy CERTIFICATION: I certify that the transfer of the above named patient to an Extended Care Facility is necessary for the continuing treatment of the diagnosis listed. The above information is true and accurate reflection of patient's current condition. Confidential - Redisclosure prohibited without a patient's written consent.
--- NOTE | 2018-07-25 14:40 | Podiatry Progress Note ---
Date of Encounter: 07/25/18 Time of Encounter: 11:15 - Assessment and Plan (1) Cellulitis Current Visit: Yes Status: Acute Keating stage II ulceration of the plantar aspect of the left foot with associated cellulitis No erythema noted to thigh or calf area. MRI with no signs of osteomyelitis or acute abnormality. Xray negative for osteomyelitis CT scan shows possible erosion at the 3rd mt head- Continue elevation and use of diabetic boot Blood cultures were obtained 07/17 positive for staph epidermis, cultures from 07/20 pending Gram stain from office also show gram-positive cocci. Wound cultures were obtained in office and showed strep agalactiae, group B. ID managing ATB Recommend Plan for wound care follow up when d/c with Dr. Acuna Plan for patient to go to [facility] today. Foot X-Ray 07/17/18 16:33 IMPRESSION: Ulceration along the ball of the foot, without radiographic evidence of osteomyelitis. D/ / Emile Troncoso MD / Emile Troncoso MD Interpreting Provider: Emile Troncoso MD Lower Extremity CT 07/17/18 17:00 IMPRESSION: 1. Possible age-indeterminate erosion along the medial plantar surface of the 3rd metatarsal head. If there is persistent clinical concern for osteomyelitis MRI could be obtained for further evaluation. 2. Shallow soft tissue ulceration plantar to the 2nd and 3rd metatarsal heads with underlying induration. No sinus tract or drainable fluid collection identified. Diffuse subcutaneous fat stranding compatible with cellulitis. D/ / Bran Campuzano MD / Bran Campuzano MD Interpreting Provider: Bran Campuzano MD R #: [id number] MR/MR lower leg LT wo/w con IMPRESSION: 1. No convincing evidence of osteomyelitis or other acute osseous abnormality. Chronic appearing deformity or erosion along the medial plantar surface of the 3rd metatarsal head without bone marrow edema. 2. Mild circumferential subcutaneous edema of the calf and moderate dorsal mid and forefoot subcutaneous edema compatible with sterile edema versus cellulitis. No drainable fluid collection. 3. Shallow soft tissue ulceration plantar to the 3rd MTP joint. No sinus tract or associated fluid collection. 4. Small volume of fluid in the 3rd interdigital space as can be seen with intermetatarsal bursitis. D/ / Bran Campuzano MD / Bran Campuzano MD Interpreting Provider: Bran Campuzano MD Qualifiers: Site of cellulitis: extremity Site of cellulitis of extremity: lower extremity Laterality: left Qualified Code(s): L03.116 - Cellulitis of left lower limb (2) Wound of foot Current Visit: Yes Status: Acute Dressing change completed by myself today. Cleanse daily with 0.9 normal saline Apply maxsorb AG, 4x4 dry gauze, and kerlix Nursing to change. Patient wearing diabetic boot. Follow up in wound care with Dr. Acuna (3) T2DM (type 2 diabetes mellitus) Current Visit: Yes Status: Chronic Primary managing. Recommend tight glycemic control to promote wound healing Qualifiers: Diabetes mellitus moth exterminator insulin use: with moth exterminator use Diabetes mellitus complication status: with neurologic complications Diabetes mellitus complication detail: with polyneuropathy Qualified Code(s): E11.42 - Type 2 diabetes mellitus with diabetic polyneuropathy; Z79.4 - terminal supervisor (current) use of insulin (4) Tobacco use Current Visit: Yes Status: Chronic Currently on nicotine patch. Primary managing Discussed smoking cessation. Educated on wound healing and pathology related to smoking. Subjective Interval history: Patient awake up in chair. Alert and oriented x 3. Denies any overnight complications. at bedside. States she is awaiting placement to [facility]. She would like documentation stating that she has been admitted to the hospital and that she is leaving to go to [facility] upon D/C so that she does not lose her home or her job. States she needs something other than [facility] paperwork. Patient also wearing diabetic boot. Reports having difficulty placing boot on but denies any other issues. Denies calf pain, nausea, vomiting, diarrhea, fevers, or chills. Objective - Vital Signs Vital Signs: Vital Signs Temp Pulse Resp BP Pulse Ox 07/25/18 10:59 98.4 F 83 18 102/71 95 07/25/18 07:03 98.2 F 88 16 110/78 92 07/25/18 03:11 98.1 F 93 16 104/72 91 07/24/18 22:44 98.1 F 85 16 112/75 93 07/24/18 19:44 98.2 F 93 16 111/74 93 07/24/18 16:53 115/87 07/24/18 15:48 98.7 F 89 16 97/70 96 Intake and Output 07/24/18 07/25/18 07/25/18 23:59 07:59 15:59 Intake Total 140 / 140 360 / 360 Output Total 0 / 0 Balance 140 / 140 360 / 360 Intake: IV Fluids Rocephin 2,000 MG In Water for inj. (sterile) 20 ML @ 600 mls/ hr IVP Q24H [facility] Rx#:[id number] Oral 120 / 120 360 / 360 Output: Urine 0 / 0 Other: Meal Lunch Percent of Meal Consumed 100% Weight 111 kg Blood Glucose* 252 152 197 - Exam Exam: Constitiutional: Alert and oriented x 3. Vascular: 1/4 DP/PT left foot, CFT <3 sec to all digits left foot, warm to warm from tibia to toes left foot Neurologic: Diminished sensation to touch, normal plantar response, Normal position sense dorsiflexion/plantar flexion Dermatologic: Skin erythema subsided from previous assessments, ulceration submetatarsal #2,3 plantar aspect of foot, dry, no drainage noted Musculoskeletal: 5/5 muscle strength and normal tone left foot. - Lab Result Diagrams: 07/25/18 05:40 07/25/18 05:40 Labs: Abnormal lab results WBC 12.5 K/mcL (4.3-11.1) H 07/25/18 05:40 Neutrophils # 10.0 K/mcL (1.6-8.9) H 07/23/18 03:33 Monocytes # 1.4 K/mcL (0.0-1.3) H 07/23/18 03:33 ESR 63 mm/hr (0-15) H 07/17/18 16:35 Creatinine 0.45 mg/dL (0.60-1.20) L 07/25/18 05:40 Glucose 166 mg/dL (70-105) H 07/25/18 05:40 POC Glucose 252 mg/dL (70-99) H 07/24/18 19:51 C-Reactive Protein 75 mg/L (Less than 10) H 07/17/18 16:36 Staphylococcus sp PCR DETECTED (Not Detect) A 07/17/18 17:09 mecA-Methicil Res Gene DETECTED (Not Detect) A 07/17/18 17:09 Microbiology, Last 48 Hours 07/20/18 09:44 Blood Culture - Final Peripheral Venipuncture No growth. Final report. 07/20/18 09:40 Blood Culture - Final Peripheral Venipuncture No growth. Final report. Consult Discharge Plan - Plan Additional Instructions: Follow up in wound clinic with Dr. Acuna. Please make appointment prior to d/c. Referrals: Stephanie Campbell MD [Primary Care Provider] - 07/30/18 9:20 am (Please follow up as schedule....) Beto Acuna DPM [Partnered Physician] - 08/01/18 10:00 am (Please follow up as schedule...) Prescriptions: Acetaminophen [Tylenol] 650 mg PO Q6HR PRN #30 tablet PRN Reason: Mild Pain/Fever Ceftriaxone Na/Dextrose,Iso [Ceftriaxone 2 gm Piggyback] 2 gm IV DAILY 4 Days froz.piggy Insulin LISPRO [HumaLOG] 0 units SQ TIDAC #1 vial Nicotine Patch [Nicoderm] 7 mg TD DAILY #30 patch.td24
[2018-07-25] MEDS: cefTRIAXone 2,000 MG in Water for inj. (sterile) 20 ML 20 ML IVP SCH (15:56)
[2018-07-25] MEDS: Insulin DETEMIR 100 UNIT/ML X5UNITS SQ SCH (20:08)
[2018-07-26] MEDS: *HR* Enoxaparin 40 MG/0.4 ML SYRINGE SQ SCH (06:29)
[2018-07-26] MEDS: Nicotine 7 MG PATCH.TD24 TD SCH (07:45)
[2018-07-26] MEDS: Insulin LISPRO 300 UNITS/3 ML VIAL SQ SCH ×4 (07:47→20:46)
--- NOTE | 2018-07-26 09:16 | Internal Med Progress Note ---
Hospitalist Progress Note - Encounter Date of Encounter: 07/26/18 Time of Encounter: 08:00 - Subjective Interval History: keren was seen and examined at bedside has no complaints, tolerating diet waiting for placement at [facility] she denies fever, chills, CP, SOB, cough, palpitations, N/v/D - Exam Vitals: Temp Pulse Resp BP Pulse Ox 98.3 F 84 17 114/72 93 07/26/18 06:57 07/26/18 06:57 07/26/18 06:57 07/26/18 06:57 07/26/18 06:57 Exam: General: Patient is alert, oriented, no acute distress, obese Head: atraumatic, normocephalic, Eye: normal appearance, PERRL, no scleral icterus, no conjunctival injection ENT: mucous membranes moist, normal external ear exam Neck: normal inspection, trachea midline, full ROM, no carotid bruits Chest: normal inspection, symmetric chest rise Respiratory: Good respiratory effort. Bilateral breath sounds are clear without wheezing, crackles, or rhonchi. Cardiovascular: Regular rate and rhythm. s1 and s2 No clicks, rubs, gallops, or murmors. Abdomen: Bowel sounds present normoactive x-4 quadrants. Abdomen is soft, nondistended. no Epigastric tenderness. No guarding or rebound. No organomegaly noted, obese musculoskeletal: Spontaneously moving all extremities. +1 edema of LLE , no calf tenderness Skin: warm, dry, intact. in surgical boot Neuro: Alert and oriented x4. Sensation light touch intact. Cranial nerves 2- 12 is intact. no focal deficit Psych: Patient's affect is normal - Assessment and Plan (1) Cellulitis Current Visit: Yes Status: Acute Assessment and Plan: Healing Keating stage II ulceration of the plantar aspect of the left foot with associated cellulitis ESR 63 and CRP 75 Blood cultures on 07/17 positive MRSE 1. This is likely a contaminant Repeat blood cultures on 07/20 negative for growth 2 Outpatient wound cultures from podiatry office growing group B strep MRI negative for abscess or osseous involvement Doppler of the left extremity on 07/17 which was negative wound care as per podiatry to continue IV rocephin 2g through 07/29/18- prescription provided awaiting pre-cert to [facility] MR: IMPRESSION: 1. No convincing evidence of osteomyelitis or other acute osseous abnormality. Chronic appearing deformity or erosion along the medial plantar surface of the 3rd metatarsal head without bone marrow edema. 2. Mild circumferential subcutaneous edema of the calf and moderate dorsal mid and forefoot subcutaneous edema compatible with sterile edema versus cellulitis. No drainable fluid collection. 3. Shallow soft tissue ulceration plantar to the 3rd MTP joint. No sinus tract or associated fluid collection. 4. Small volume of fluid in the 3rd interdigital space as can be seen with intermetatarsal bursitis. (2) T2DM (type 2 diabetes mellitus) Current Visit: Yes Status: Chronic Assessment and Plan: uncontrolled as A1c in april was 9.2 on levemir 10 units continue with sliding scale insulin and adjust as per finger sticks (3) HLD (hyperlipidemia) Current Visit: Yes Status: Acute Assessment and Plan: continue statins (4) Obesity (BMI 30-39.9) Current Visit: Yes Status: Acute Assessment and Plan: nutrition consult was counseled BMI 39.2 (5) DVT prophylaxis Current Visit: Yes Status: Acute Assessment and Plan: lovenox - Time Spent with Patient Total time spent is greater than 50% in coordination of care (as documented) at patient's floor/unit and/or counseling patient: Internal Medicine: Result - Labs CBC & Chem 7: 07/25/18 05:40 07/25/18 05:40 Consult Discharge Plan - Plan Additional Instructions: Follow up in wound clinic with Dr. Acuna. Please make appointment prior to d/c. Referrals: Stephanie Campbell MD [Primary Care Provider] - 07/30/18 9:20 am (Please follow up as schedule....) Beto Acuna DPM [Partnered Physician] - 08/01/18 10:00 am (Please follow up as schedule...) Prescriptions: Acetaminophen [Tylenol] 650 mg PO Q6HR PRN #30 tablet PRN Reason: Mild Pain/Fever Ceftriaxone Na/Dextrose,Iso [Ceftriaxone 2 gm Piggyback] 2 gm IV DAILY 4 Days froz.piggy Insulin LISPRO [HumaLOG] 0 units SQ TIDAC #1 vial Nicotine Patch [Nicoderm] 7 mg TD DAILY #30 patch.td24 (1) Cellulitis Qualifiers: Site of cellulitis: extremity Site of cellulitis of extremity: lower extremity Laterality: left Qualified Code(s): L03.116 - Cellulitis of left lower limb (2) T2DM (type 2 diabetes mellitus) Qualifiers: Diabetes mellitus contractor general building insulin use: with senior care use Diabetes mellitus complication status: with neurologic complications Diabetes mellitus complication detail: with polyneuropathy Qualified Code(s): E11.42 - Type 2 diabetes mellitus with diabetic polyneuropathy; Z79.4 - psych tech (current) use of insulin (3) HLD (hyperlipidemia) Qualifiers: Hyperlipidemia type: unspecified Qualified Code(s): E78.5 - Hyperlipidemia, unspecified
[2018-07-26] MEDS: cefTRIAXone 2,000 MG in Water for inj. (sterile) 20 ML 20 ML IVP SCH (14:09)
[2018-07-26] MEDS: Acetaminophen 325 MG TABLET PO PRN (14:12)
[2018-07-26] MEDS: Insulin DETEMIR 100 UNIT/ML X5UNITS SQ SCH (20:45)
[2018-07-27] MEDS: *HR* Enoxaparin 40 MG/0.4 ML SYRINGE SQ SCH (06:01)
[2018-07-27] MEDS: Insulin LISPRO 300 UNITS/3 ML VIAL SQ SCH ×4 (07:59→20:26)
[2018-07-27] MEDS: Nicotine 7 MG PATCH.TD24 TD SCH (10:04)
--- NOTE | 2018-07-27 13:53 | Internal Med Progress Note ---
Hospitalist Progress Note - Encounter Date of Encounter: 07/27/18 Time of Encounter: 10:00 - Subjective Interval History: No acute events overnight. Denies any fever/chills, productive cough, or N/V. Continues to express her wish not to go to SNF. - Exam Vitals: Temp Pulse Resp BP Pulse Ox 97.7 F 88 18 104/72 94 07/27/18 11:27 07/27/18 11:27 07/27/18 11:27 07/27/18 11:27 07/27/18 11:27 Exam: General: Patient is alert, oriented, no acute distress Eye: PERRL Respiratory: Good respiratory effort. Clear to auscultation Cardiovascular: Regular rate and rhythm. s1 and s2 Abdomen: Soft, nontender musculoskeletal: L foot wrapped in dressing and in boot. Dry and clean Skin: warm, dry, intact - Assessment and Plan (1) Cellulitis Current Visit: Yes Status: Acute Assessment and Plan: Healing Keating stage II ulceration of the plantar aspect of the left foot with associated cellulitis ESR 63 and CRP 75 Blood cultures on 07/17 positive MRSE 1. This is likely a contaminant Repeat blood cultures on 07/20 negative for growth 2 Outpatient wound cultures from podiatry office growing group B strep MRI negative for abscess or osseous involvement Doppler of the left extremity on 07/17 which was negative wound care as per podiatry, follow up as outpatient continue IV rocephin 2g through 07/29/18 and d/c home (2) T2DM (type 2 diabetes mellitus) Current Visit: Yes Status: Chronic Assessment and Plan: BGM 147-221 on current dose of insulin, continue with levemir 10 units and sliding scale coverage (3) HLD (hyperlipidemia) Current Visit: Yes Status: Chronic Assessment and Plan: continue statins (4) Obesity (BMI 30-39.9) Current Visit: Yes Status: Acute Assessment and Plan: Ongoing counseling nutrition consult (5) Tobacco use Current Visit: Yes Status: Chronic Assessment and Plan: Counseling provided Nicotine replacement therapy (6) DVT prophylaxis Current Visit: Yes Status: Acute Assessment and Plan: SQ lovenox - Time Spent with Patient Total time spent is greater than 50% in coordination of care (as documented) at patient's floor/unit and/or counseling patient: Plan of Care Discussed with: patient Internal Medicine: Result - Labs CBC & Chem 7: 07/25/18 05:40 07/25/18 05:40 Consult Discharge Plan - Plan Additional Instructions: Follow up in wound clinic with Dr. Acuna. Please make appointment prior to d/c. Referrals: Stephanie Campbell MD [Primary Care Provider] - 07/30/18 9:20 am (Please follow up as schedule....) Beto Acuna DPM [Partnered Physician] - 08/01/18 10:00 am (Please follow up as schedule...) Prescriptions: Acetaminophen [Tylenol] 650 mg PO Q6HR PRN #30 tablet PRN Reason: Mild Pain/Fever Ceftriaxone Na/Dextrose,Iso [Ceftriaxone 2 gm Piggyback] 2 gm IV DAILY 4 Days froz.piggy Insulin LISPRO [HumaLOG] 0 units SQ TIDAC #1 vial Nicotine Patch [Nicoderm] 7 mg TD DAILY #30 patch.td24 (1) Cellulitis Qualifiers: Site of cellulitis: extremity Site of cellulitis of extremity: lower extremity Laterality: left Qualified Code(s): L03.116 - Cellulitis of left lower limb (2) T2DM (type 2 diabetes mellitus) Qualifiers: Diabetes mellitus terminal clerk insulin use: with terminal clerk use Diabetes mellitus complication status: with neurologic complications Diabetes mellitus complication detail: with polyneuropathy Qualified Code(s): E11.42 - Type 2 diabetes mellitus with diabetic polyneuropathy; Z79.4 - MCFP (current) use of insulin (3) HLD (hyperlipidemia) Qualifiers: Hyperlipidemia type: unspecified Qualified Code(s): E78.5 - Hyperlipidemia, unspecified
[2018-07-27] MEDS: cefTRIAXone 2,000 MG in Water for inj. (sterile) 20 ML 20 ML IVP SCH (14:36)
[2018-07-27] MEDS: Insulin DETEMIR 100 UNIT/ML X5UNITS SQ SCH (20:27)
[2018-07-28 05:35] LABS: Basophils # 0.1 K/mcL (0.0-0.2); Basophils % 0.6 %; Eosinophils # 0.2 K/mcL (0.0-0.6); Eosinophils % 1.6 %; Hematocrit 45.8 % (35.3-44.9); Hemoglobin 14.4 g/dL (11.5-15.4); Immature Granulocytes % 0.3 % (0-4); Lymphocytes # 2.9 K/mcL (0.6-4.6); Lymphocytes % 24.9 %; Mean Corpuscular HGB Conc 31.4 g/dL (31.6-35.5); Mean Corpuscular Hemoglobin 27.9 pg (28.0-33.3); Mean Corpuscular Volume 88.8 fL (83.0-100.0); Mean Platelet Volume 10.9 fL (9.4-12.4); Monocytes # 0.9 K/mcL (0.0-1.3); Monocytes % 7.9 %; Neutrophils # 7.6 K/mcL (1.6-8.9); Platelet Count 269 K/mcL (140-400); Red Blood Count 5.16 M/mcL (3.82-4.97); Red Cell Distribution Width 13.8 % (11.5-14.5); Segmented Neutrophils % 64.7 %
[2018-07-28 05:56] LABS: BUN/Creatinine Ratio 26 (6-26); Blood Urea Nitrogen 12 mg/dL (6-20); Calcium 9.5 mg/dL (8.6-10.3); Carbon Dioxide 25 mEq/L (23-29); Chloride 103 mEq/L (98-107); Glucose 155 mg/dL (70-105); Osmolality,Calculated 287 (280-300); Potassium 3.8 mEq/L (3.5-5.1); Sodium 137 mEq/L (136-145); eGFR For Non-African Americans > 60 (> 60)
[2018-07-28] MEDS: *HR* Enoxaparin 40 MG/0.4 ML SYRINGE SQ SCH (06:41)
[2018-07-28] MEDS: Insulin LISPRO 300 UNITS/3 ML VIAL SQ SCH ×4 (07:44→20:40)
[2018-07-28] MEDS: Nicotine 7 MG PATCH.TD24 TD SCH (07:53)
--- NOTE | 2018-07-28 12:23 | Internal Med Progress Note ---
Hospitalist Progress Note - Encounter Date of Encounter: 07/28/18 Time of Encounter: 09:00 - Subjective Interval History: No acute events overnight. No fever/chills, N/V, productive cough, or abdominal pain. excited to return home tomorrow after the last dose of abx. - Exam Vitals: Temp Pulse Resp BP Pulse Ox 98.3 F 93 20 120/80 91 07/28/18 06:35 07/28/18 06:35 07/28/18 06:35 07/28/18 06:35 07/28/18 06:35 Exam: General: Patient is alert, oriented, no acute distress Eye: PERRL Respiratory: Good respiratory effort. Clear to auscultation Cardiovascular: Regular rate and rhythm. s1 and s2 Abdomen: Soft, nontender musculoskeletal: L foot wrapped in dressing and in boot. Dry and clean Skin: warm, dry, intact - Assessment and Plan (1) Cellulitis Current Visit: Yes Status: Acute Assessment and Plan: Healing Keating stage II ulceration of the plantar aspect of the left foot with associated cellulitis ESR 63 and CRP 75 Blood cultures on 07/17 positive MRSE 1. This is likely a contaminant Repeat blood cultures on 07/20 negative for growth 2 Outpatient wound cultures from podiatry office growing group B strep MRI negative for abscess or osseous involvement Doppler of the left extremity on 07/17 which was negative wound care as per podiatry, follow up as outpatient continue IV rocephin 2g through tomorrow and d/c home (2) T2DM (type 2 diabetes mellitus) Current Visit: Yes Status: Chronic Assessment and Plan: BGM 141-254 on current dose of insulin, continue with levemir 10 units and sliding scale coverage (3) HLD (hyperlipidemia) Current Visit: Yes Status: Chronic Assessment and Plan: continue statins (4) Obesity (BMI 30-39.9) Current Visit: Yes Status: Acute Assessment and Plan: Ongoing counseling nutrition consult (5) Tobacco use Current Visit: Yes Status: Chronic Assessment and Plan: Counseling provided Nicotine replacement therapy (6) DVT prophylaxis Current Visit: Yes Status: Acute Assessment and Plan: SQ lovenox - Time Spent with Patient Total time spent is greater than 50% in coordination of care (as documented) at patient's floor/unit and/or counseling patient: Plan of Care Discussed with: patient Internal Medicine: Result - Labs CBC & Chem 7: 07/28/18 04:53 07/28/18 04:53 Labs: Short CBC 07/28/18 Range/Units 04:53 WBC 11.7 H (4.3-11.1) K/mcL Hgb 14.4 (11.5-15.4) g/dL Hct 45.8 H (35.3-44.9) % Plt Count 269 (140-400) K/mcL Neutrophils # 7.6 (1.6-8.9) K/mcL BMP 07/28/18 04:53 Sodium 137 Potassium 3.8 Chloride 103 Carbon Dioxide 25 BUN 12 Creatinine 0.46 L Glucose 155 H Calcium 9.5 Consult Discharge Plan - Plan Additional Instructions: Follow up in wound clinic with Dr. Acuna. Please make appointment prior to d/c. Referrals: Stephanie Campbell MD [Primary Care Provider] - 07/30/18 9:20 am (Please follow up as schedule....) Beto Acuna DPM [Partnered Physician] - 08/01/18 10:00 am (Please follow up as schedule...) Prescriptions: Acetaminophen [Tylenol] 650 mg PO Q6HR PRN #30 tablet PRN Reason: Mild Pain/Fever Ceftriaxone Na/Dextrose,Iso [Ceftriaxone 2 gm Piggyback] 2 gm IV DAILY 4 Days froz.piggy Insulin LISPRO [HumaLOG] 0 units SQ TIDAC #1 vial Nicotine Patch [Nicoderm] 7 mg TD DAILY #30 patch.td24 (1) Cellulitis Qualifiers: Site of cellulitis: extremity Site of cellulitis of extremity: lower extremity Laterality: left Qualified Code(s): L03.116 - Cellulitis of left lo wer limb (2) T2DM (type 2 diabetes mellitus) Qualifiers: Diabetes mellitus long chain beamer insulin use: with intermediate use Diabetes mellitus complication status: with neurologic complications Diabetes mellitus complication detail: with polyneuropathy Qualified Code(s): E11.42 - Type 2 diabetes mellitus with diabetic polyneuropathy; Z79.4 - senior care (current) use of insulin (3) HLD (hyperlipidemia) Qualifiers: Hyperlipidemia type: unspecified Qualified Code(s): E78.5 - Hyperlipidemia, unspecified
[2018-07-28] MEDS: cefTRIAXone 2,000 MG in Water for inj. (sterile) 20 ML 20 ML IVP SCH (12:54)
[2018-07-28] MEDS: Insulin DETEMIR 100 UNIT/ML X5UNITS SQ SCH (20:37)
[2018-07-29] MEDS: *HR* Enoxaparin 40 MG/0.4 ML SYRINGE SQ SCH (06:07)
[2018-07-29 06:47] VITALS: BP 105/72
[2018-07-29] MEDS: Insulin LISPRO 300 UNITS/3 ML VIAL SQ SCH (07:41)
[2018-07-29] MEDS: Nicotine 7 MG PATCH.TD24 TD SCH (07:43)
--- NOTE | 2018-07-29 10:18 | Discharge Summary ---
- NOTES TO OUTPATIENT PROVIDER Notes to Outpatient Provider: Patient was admitted for nonhealing left foot wound associated with surrounding cellulitis without definitive osteomyelitis on imaging. She has completed a course of IV antibiotics on 07/29 and will be discharged home with home health, instead of SNF as patient did not want to be transferred to ECF. Date of Encounter: 07/29/18 Time of Encounter: 07:45 - Discharge Diagnosis (1) Cellulitis Priority: Primary Status: Acute Qualifiers: Site of cellulitis: extremity Site of cellulitis of extremity: lower extremity Laterality: left Qualified Code(s): L03.116 - Cellulitis of left lower limb (2) T2DM (type 2 diabetes mellitus) Priority: Secondary Status: Chronic Qualifiers: Diabetes mellitus prison insulin use: with prison use Diabetes mellitus complication status: with neurologic complications Diabetes mellitus complication detail: with polyneuropathy Qualified Code(s): E11.42 - Type 2 diabetes mellitus with diabetic polyneuropathy; 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 Romero is a 42 year old female with history of uterine cancer S/P total hysterectomy, GERD, hyperlipidemia and type 2 diabetes was admitted for non- healing L foot ulcer. X-ray of foot on 07/17 shows evidence of ulceration without evidence of osteomyelitis CT of foot on 07/17 shows age indeterminate erosion in the third metatarsal head. Also soft tissue ulceration to the second and third head of the tarsals. No evidence of osteomyelitis. MRI obtained on 07/18 of foot shows no convincing evidence of osteomyelitis. Chronic-appearing wound. Mild circumferential subcutaneous edema of calf and dorsal mid forefoot compatible with cellulitis. In addition Doppler of the left extremity on 07/17 which was negative. he was treated with vancomycin and Zosyn for 4 days and was changed to IV Rocephin 2 g and is to continue until 07/29/18. Physical therapy and rehabilitation or consulted and recommended ECF. However, patient declined to be transferred to ECF and completed IV abx in hospital and is discharged home with home health and outpatient follow up with podiatry. she was counseled on importance of diet, nutrition and weight loss and she understands. she was counseled on smoking cessation and was provided nicotine patch. she was counseled om importance of medication compliance, along with insulin compliance. Discharge discussed with: patient, nurse - Time Spent with Patient Total time spent providing and/or coordinating discharge services: 35 mins - Discharge Medications Prescriptions: Acetaminophen [Tylenol] 650 mg PO Q6HR PRN #30 tablet PRN Reason: Mild Pain/Fever Nicotine Patch [Nicoderm] 7 mg TD DAILY #30 patch.td24 Home Medications: Atorvastatin [Lipitor] 40 mg PO HS 09/07/17 [History] Ergocalciferol (VITAMIN D2) [Vitamin D2] 50,000 unit PO SA 09/07/17 [History] Dicyclomine Hcl [Bentyl] 20 mg PO TID 07/17/18 [History] Insulin Degludec [Tresiba Flextouch U-100] 30 unit SQ DAILY 07/17/18 [History] Acetaminophen [Tylenol] 650 mg PO Q6HR PRN #30 tablet 07/25/18 [Rx] Nicotine Patch [Nicoderm] 7 mg TD DAILY #30 patch.td24 07/25/18 [Rx] Allergies/Adverse Reactions: Allergy/AdvReac Type Severity Reaction Status Date / Time pregabalin [From Lyrica] Allergy Dizziness Verified 07/17/18 15:49 Date of admission: 07/22/18 18:52 Primary care physician: Stephanie Campbell MD Consults: 07/17/18 17:11 Consult to Podiatry [CONS] Stat Consulting Provider: [facility] Reason for Consult: nonhealing ulcer to left foot Call Completed: Yes 07/19/18 16:27 Consult to Infectious Diseases [CONS] Routine Consulting Provider: [facility] [place] Reason for Consult: Diabetic ulcer/cellulitis of left foot. Time Notified: 16:15 Call Completed: Yes 07/25/18 15:22 Consult to Physical Therapy [CONS] Routine Comment: Evaluate, develop and implement POC Reason for Consult: pt needs eval for pre-cert Does patient have active BEDREST order?: No Is patient medically & hemodynamically stable?: Yes - Constitutional Vitals: Temp Pulse Resp BP Pulse Ox 98.4 F 91 20 105/72 92 07/29/18 06:39 07/29/18 06:39 07/29/18 06:39 07/29/18 06:39 07/29/18 06:39 General appearance: Present: A&O X 3, morbidly obese Exam: General: Patient is alert, oriented, no acute distress Eye: PERRL Respiratory: Good respiratory effort. Clear to auscultation Cardiovascular: Regular rate and rhythm. s1 and s2 Abdomen: Soft, nontender musculoskeletal: L foot wrapped in dressing and in boot. Dry and clean Skin: warm, dry, intact - Patient Status Disposition: Home Health Service Condition: Good Overall status at discharge: patient is progressing back to baseline - Discharge Instructions Instructions: Cellulitis (DC), Diabetes Mellitus Type 2 in Adults (DC) Follow Up With: Stephanie Campbell MD [Primary Care Provider] - 07/30/18 9:20 am (Please follow up as schedule....) Beto Acuna DPM [Partnered Physician] - 08/01/18 10:00 am (Please follow up as schedule...) Additional Instructions: Follow up in wound clinic with Dr. Acuna. Please make appointment prior to d/c. - Diet and Activity Activity: as per physical therapy Diet: diabetic diet
--- NOTE | 2018-07-29 10:23 | Physician Discharge Referral ---
Home Health/Hosp Referral Info Transfer to: Home Health - Diagnosis (1) Cellulitis Priority: Primary Status: Acute (2) T2DM (type 2 diabetes mellitus) Priority: Secondary Status: Chronic (3) HLD (hyperlipidemia) Priority: Secondary Status: Chronic (4) Obesity (BMI 30-39.9) Priority: Secondary Status: Acute (5) Tobacco use Priority: Secondary Status: Chronic (6) DVT prophylaxis Priority: Secondary Status: Acute - Respiratory Orders Smoking Cessation: Smoking cessation has been advised. For more information, call the [place] Tobacco Quit Line at 1-112-QGTW-NOW. - Services Needed Following services are medically necessary services: Nursing, Home Health Aide, Physical Therapy, Occupational Therapy - Transfer Medications Prescriptions: Acetaminophen [Tylenol] 650 mg PO Q6HR PRN #30 tablet PRN Reason: Mild Pain/Fever Nicotine Patch [Nicoderm] 7 mg TD DAILY #30 patch.td24 Home Medications: Atorvastatin [Lipitor] 40 mg PO HS 09/07/17 [History] Ergocalciferol (VITAMIN D2) [Vitamin D2] 50,000 unit PO SA 09/07/17 [History] Dicyclomine Hcl [Bentyl] 20 mg PO TID 07/17/18 [History] Insulin Degludec [Tresiba Flextouch U-100] 30 unit SQ DAILY 07/17/18 [History] Acetaminophen [Tylenol] 650 mg PO Q6HR PRN #30 tablet 07/25/18 [Rx] Nicotine Patch [Nicoderm] 7 mg TD DAILY #30 patch.td24 07/25/18 [Rx] Allergies/Adverse Reactions: Allergy/AdvReac Type Severity Reaction Status Date / Time pregabalin [From Lyrica] Allergy Dizziness Verified 07/17/18 15:49 Certification: Further, I certify that my clinical findings support that this patient is homebound (i.e. absences from home require considerable and taxing effort and are for medical reasons or yarsani services or infrequently or short duration when for other reasons) because: Homebound Reason: Patient requires assistance of a person or device to safely leave home Attestation: My signature below is to certify that this patient is under my care and that I, or nurse practitioner, or a physician's assistant professor of surgery working with me, has a [id number] encounter with this patient.
[2018-07-29] MEDS: cefTRIAXone 2,000 MG in Water for inj. (sterile) 20 ML 20 ML IVP SCH (11:52)
== END 2018-07-29 12:07 | disposition home health service (06) | DRG 380 ==
LOC: EMEROOARM 15:38 → 2ANU 15:38 → SUATTDRO 18:14 → 2ANU 19:57 → SUATTDRO 07-22 18:52
PROVIDERS: ADMIT Internal Medicine; ATTEND Internal Medicine

== ENCOUNTER 2019-06-30 15:10 | Inpatient (IN) ==
[2019-06-30] MEDS ORDERED: Piperacillin/Tazobactam 3.375 GM in Water for inj. (sterile) 20 ML IVP ONE (16:00)
[2019-06-30] MEDS ORDERED: Isovue-370 500 ML BOTTLE IVP ONE (16:00)
[2019-06-30] MEDS ORDERED: *HR* FentaNYL (PF) 100 MCG/2 ML VIAL IVP ONE (16:02)
[2019-06-30] MEDS ORDERED: Piperacillin/Tazobactam 3.375 GM in 0.9 % Sodium Chloride Mini Bag 100 ML IVPB ONE (16:32)
[2019-06-30 16:55] LABS: Basophils # 0.1 K/mcL (0.0-0.2); Basophils % 0.6 %; Eosinophils # 0.2 K/mcL (0.0-0.6); Eosinophils % 1.8 %; Hemoglobin 16.4 g/dL (11.5-15.4); Immature Granulocytes % 0.6 % (0-4); Lymphocytes # 3.3 K/mcL (0.6-4.6); Mean Corpuscular HGB Conc 32.2 g/dL (31.6-35.5); Mean Corpuscular Hemoglobin 28.5 pg (28.0-33.3); Mean Corpuscular Volume 88.5 fL (83.0-100.0); Mean Platelet Volume 10.3 fL (9.4-12.4); Monocytes # 1.1 K/mcL (0.0-1.3); Monocytes % 8.1 %; Neutrophils # 8.8 K/mcL (1.6-8.9); Platelet Count 300 K/mcL (140-400); Red Blood Count 5.76 M/mcL (3.82-4.97); Red Cell Distribution Width 16.7 % (11.5-14.5); Segmented Neutrophils % 64.9 %; White Blood Count 13.5 K/mcL (4.3-11.1)
[2019-06-30 17:15] LABS: Alanine Aminotransferase 12 Units/L (7-52); Albumin 4.1 g/dL (3.5-5.7); Albumin/Globulin Ratio 1.3 (1.1-2.2); Alkaline Phosphatase 74 Units/L (34-104); Aspartate Amino Transferase 16 Units/L (13-39); BUN/Creatinine Ratio 23 (6-26); Bilirubin,Direct 0.1 mg/dL (0.0-0.2); Bilirubin,Indirect 0.4 mg/dL (0.0-1.2); Bilirubin,Total 0.5 mg/dL (0.3-1.0); Blood Urea Nitrogen 10 mg/dL (6-20); Calcium 9.5 mg/dL (8.6-10.3); Carbon Dioxide 28 mEq/L (23-29); Chloride 100 mEq/L (98-107); Globulin 3.2 g/dL (2.4-3.5); Glucose 112 mg/dL (70-105); Magnesium 1.9 mg/dL (1.6-2.6); Osmolality,Calculated 286 (280-300); Phosphorous 3.2 mg/dL (2.7-4.5); Sodium 138 mEq/L (136-145); Total Protein 7.3 g/dL (6.4-8.9); eGFR For African Americans > 60 (> 60); eGFR For Non-African Americans > 60 (> 60)
[2019-06-30 17:30] LABS: Bilirubin,Urine Negative (Negative); Blood,Urine Negative (Negative); Clarity,Urine Clear (Clear); Color,Urine Yellow (Yellow); Glucose,Urine (UA) >=1000 mg/dL (Normal); Ketones,Urine Negative (Negative); Leukocyte Esterase,Urine Negative (Negative); Nitrite,Urine Negative (Negative); PH,Urine 5.5 pH Units (5.0-8.0); Protein,Urine Negative (Neg-Trace); Specific Gravity,Urine > 1.030 (1.010-1.025); Urobilinogen,Urine Normal (Normal)
[2019-06-30] MEDS ORDERED: Naloxone 0.4 MG/ML INJ IVP PRN (21:37)
[2019-06-30] MEDS ORDERED: D5% in Water 1,000 ML IVC PRN (21:37)
[2019-06-30] MEDS ORDERED: Dextrose Gel 15 GM/37.5 ML TUBE PO PRN ×2 (21:37)
[2019-06-30] MEDS ORDERED: *HR* Dextrose 50 % in Water (Syg) 50 ML SYRINGE IVP PRN (21:37)
[2019-06-30] MEDS ORDERED: Vancomycin (wt based) 1,000 MG VIAL IVPB SCH (22:00)
[2019-06-30] MEDS: 0.9 % Sodium Chloride 1,000 ML IVC SCH (22:40)
[2019-06-30] MEDS: *HR* Heparin 5,000 UNIT/ML VIAL SQ SCH (22:40)
[2019-06-30] MEDS: Insulin LISPRO 300 UNITS/3 ML VIAL SQ SCH (22:41)
[2019-07-01] MEDS: Piperacillin/Tazobactam 3.375 GM in 0.9 % Sodium Chloride Mini Bag 100 ML IVPB SCH ×2 (00:11→09:09)
[2019-07-01] MEDS: 0.9 % Sodium Chloride 1,000 ML IVC SCH (00:49)
[2019-07-01 03:56] LABS: Basophils # 0.1 K/mcL (0.0-0.2); Basophils % 0.5 %; Eosinophils # 0.2 K/mcL (0.0-0.6); Eosinophils % 1.5 %; Hematocrit 48.6 % (35.3-44.9); Hemoglobin 15.1 g/dL (11.5-15.4); Immature Granulocytes % 0.5 % (0-4); Lymphocytes # 2.2 K/mcL (0.6-4.6); Mean Corpuscular HGB Conc 31.1 g/dL (31.6-35.5); Mean Corpuscular Hemoglobin 28.4 pg (28.0-33.3); Mean Corpuscular Volume 91.4 fL (83.0-100.0); Mean Platelet Volume 10.1 fL (9.4-12.4); Monocytes # 1.1 K/mcL (0.0-1.3); Monocytes % 8.7 %; Neutrophils # 8.7 K/mcL (1.6-8.9); Platelet Count 244 K/mcL (140-400); Red Blood Count 5.32 M/mcL (3.82-4.97); Red Cell Distribution Width 16.2 % (11.5-14.5); Segmented Neutrophils % 70.8 %; White Blood Count 12.2 K/mcL (4.3-11.1)
[2019-07-01 04:03] LABS: INR 1.1; Prothrombin Time 12.7 Seconds (9.4-12.1)
[2019-07-01 04:17] LABS: BUN/Creatinine Ratio 20 (6-26); Blood Urea Nitrogen 7 mg/dL (6-20); Calcium 8.5 mg/dL (8.6-10.3); Carbon Dioxide 22 mEq/L (23-29); Chloride 106 mEq/L (98-107); Chol/HDL Ratio 4.3 (0-4.9); Cholesterol 100 mg/dL (< 200); Glucose 121 mg/dL (70-105); HDL Cholesterol 23 mg/dL (40-59); LDL Cholesterol,Calculated 41 mg/dL (0-99); Magnesium 1.8 mg/dL (1.6-2.6); Osmolality,Calculated 283 (280-300); Phosphorous 4.3 mg/dL (2.7-4.5); Potassium 3.9 mEq/L (3.5-5.1); Sodium 137 mEq/L (136-145); Triglycerides 179 mg/dL (< 150); eGFR For African Americans > 60 (> 60); eGFR For Non-African Americans > 60 (> 60)
[2019-07-01 04:51] LABS: C-Reactive Protein 19 mg/L (Less than 10)
[2019-07-01] MEDS: *HR* Heparin 5,000 UNIT/ML VIAL SQ SCH ×3 (05:23→21:44)
[2019-07-01] MEDS ORDERED: Aminoglycoside Consult 1 EACH MC ONE (07:21)
[2019-07-01] MEDS: Insulin LISPRO 300 UNITS/3 ML VIAL SQ SCH ×3 (09:05→17:00)
[2019-07-01] MEDS: Acetaminophen 325 MG TABLET PO PRN (15:22)
[2019-07-01] MEDS: Insulin DETEMIR 100 UNIT/ML X5UNITS SQ SCH (21:44)
[2019-07-01] MEDS: traMADol 50 MG TABLET PO PRN (21:46)
[2019-07-02 05:47] LABS: Basophils # 0.1 K/mcL (0.0-0.2); Basophils % 0.6 %; Eosinophils # 0.2 K/mcL (0.0-0.6); Eosinophils % 1.8 %; Hematocrit 47.3 % (35.3-44.9); Hemoglobin 15.4 g/dL (11.5-15.4); Immature Granulocytes % 0.8 % (0-4); Lymphocytes # 2.1 K/mcL (0.6-4.6); Lymphocytes % 19.3 %; Mean Corpuscular HGB Conc 32.6 g/dL (31.6-35.5); Mean Corpuscular Hemoglobin 28.6 pg (28.0-33.3); Mean Corpuscular Volume 87.9 fL (83.0-100.0); Mean Platelet Volume 10.4 fL (9.4-12.4); Monocytes % 9.2 %; Neutrophils # 7.4 K/mcL (1.6-8.9); Platelet Count 273 K/mcL (140-400); Red Blood Count 5.38 M/mcL (3.82-4.97); Red Cell Distribution Width 16.2 % (11.5-14.5); Segmented Neutrophils % 68.3 %; White Blood Count 10.8 K/mcL (4.3-11.1)
[2019-07-02] MEDS: Acetaminophen 325 MG TABLET PO PRN (05:49)
[2019-07-02] MEDS: *HR* Heparin 5,000 UNIT/ML VIAL SQ SCH ×3 (05:50→21:33)
[2019-07-02 06:01] LABS: BUN/Creatinine Ratio 19 (6-26); Blood Urea Nitrogen 7 mg/dL (6-20); Calcium 8.9 mg/dL (8.6-10.3); Carbon Dioxide 26 mEq/L (23-29); Chloride 104 mEq/L (98-107); Glucose 128 mg/dL (70-105); Osmolality,Calculated 280 (280-300); Potassium 4.1 mEq/L (3.5-5.1); Sodium 135 mEq/L (136-145); eGFR For African Americans > 60 (> 60); eGFR For Non-African Americans > 60 (> 60)
[2019-07-02 08:17] LABS: Estimated Average Glucose 200 mg/dl
[2019-07-02] MEDS: Insulin LISPRO 300 UNITS/3 ML VIAL SQ SCH ×3 (08:36→17:31)
[2019-07-02] MEDS: Gabapentin 300 MG CAPSULE PO SCH ×3 (08:40→21:33)
[2019-07-02 08:58] LABS: Creatine Kinase 27 Units/L (30-223)
[2019-07-02] MEDS ORDERED: Fluconazole 100 MG TABLET PO ONE (17:30)
[2019-07-02] MEDS: Nystatin SUSP 5 ML UD.LIQ PO SCH ×2 (17:31→21:33)
[2019-07-02] MEDS: Insulin DETEMIR 100 UNIT/ML X5UNITS SQ SCH (21:34)
[2019-07-03 05:21] LABS: Basophils # 0.1 K/mcL (0.0-0.2); Basophils % 0.5 %; Eosinophils # 0.2 K/mcL (0.0-0.6); Eosinophils % 1.9 %; Hematocrit 45.8 % (35.3-44.9); Hemoglobin 14.4 g/dL (11.5-15.4); Immature Granulocytes % 0.6 % (0-4); Lymphocytes # 2.2 K/mcL (0.6-4.6); Lymphocytes % 20.2 %; Mean Corpuscular HGB Conc 31.4 g/dL (31.6-35.5); Mean Corpuscular Hemoglobin 28.3 pg (28.0-33.3); Mean Corpuscular Volume 90.2 fL (83.0-100.0); Mean Platelet Volume 10.4 fL (9.4-12.4); Monocytes # 0.9 K/mcL (0.0-1.3); Monocytes % 8.6 %; Neutrophils # 7.5 K/mcL (1.6-8.9); Platelet Count 250 K/mcL (140-400); Red Blood Count 5.08 M/mcL (3.82-4.97); Segmented Neutrophils % 68.2 %
[2019-07-03 05:34] LABS: BUN/Creatinine Ratio 22 (6-26); Blood Urea Nitrogen 9 mg/dL (6-20); Calcium 8.9 mg/dL (8.6-10.3); Carbon Dioxide 27 mEq/L (23-29); Chloride 103 mEq/L (98-107); Glucose 149 mg/dL (70-105); Osmolality,Calculated 287 (280-300); Sodium 138 mEq/L (136-145); eGFR For African Americans > 60 (> 60); eGFR For Non-African Americans > 60 (> 60)
[2019-07-03] MEDS: *HR* Heparin 5,000 UNIT/ML VIAL SQ SCH (05:38)
[2019-07-03 07:29] VITALS: BP 104/73
[2019-07-03] MEDS: traMADol 50 MG TABLET PO PRN (07:54)
[2019-07-03] MEDS: Insulin LISPRO 300 UNITS/3 ML VIAL SQ SCH (07:56)
[2019-07-03] MEDS: Nystatin SUSP 5 ML UD.LIQ PO SCH (07:56)
[2019-07-03] MEDS: Gabapentin 300 MG CAPSULE PO SCH (07:56)
[2019-07-09] MEDS ORDERED: Fluconazole 100 MG TABLET PO ONE (09:00)
== END 2019-07-03 12:37 | disposition home or self-care (01) | DRG 197 ==
LOC: EMEROOARM 15:10 → 3ANU 15:10 → SUATTDRO 22:07
PROVIDERS: ADMIT Internal Medicine; ATTEND Internal Medicine

== ENCOUNTER 2019-10-09 14:55 | Inpatient (IN) ==
[2019-10-09] MEDS ORDERED: 0.9 % Sodium Chloride 1,000 ML IVC ONE (16:33)
[2019-10-09 16:44] LABS: Basophils # 0.1 K/mcL (0.0-0.2); Basophils % 0.5 %; Eosinophils # 0.2 K/mcL (0.0-0.6); Hemoglobin 16.7 g/dL (11.5-15.4); Immature Granulocytes % 0.5 % (0-4); Lymphocytes # 2.1 K/mcL (0.6-4.6); Lymphocytes % 11.1 %; Mean Corpuscular HGB Conc 32.7 g/dL (31.6-35.5); Mean Corpuscular Hemoglobin 29.2 pg (28.0-33.3); Mean Corpuscular Volume 89.2 fL (83.0-100.0); Mean Platelet Volume 9.7 fL (9.4-12.4); Monocytes # 1.5 K/mcL (0.0-1.3); Monocytes % 8.1 %; Neutrophils # 14.9 K/mcL (1.6-8.9); Platelet Count 227 K/mcL (140-400); Red Blood Count 5.72 M/mcL (3.82-4.97); Red Cell Distribution Width 16.4 % (11.5-14.5); Segmented Neutrophils % 78.8 %; White Blood Count 18.9 K/mcL (4.3-11.1)
[2019-10-09 16:59] LABS: Alanine Aminotransferase 12 Units/L (7-52); Albumin 4.1 g/dL (3.5-5.7); Albumin/Globulin Ratio 1.3 (1.1-2.2); Alkaline Phosphatase 79 Units/L (34-104); Aspartate Amino Transferase 15 Units/L (13-39); BUN/Creatinine Ratio 14 (6-26); Bilirubin,Total 0.9 mg/dL (0.3-1.0); Blood Urea Nitrogen 7 mg/dL (6-20); C-Reactive Protein 32 mg/L (Less than 10); Calcium 9.6 mg/dL (8.6-10.3); Carbon Dioxide 27 mEq/L (23-29); Chloride 100 mEq/L (98-107); Globulin 3.2 g/dL (2.4-3.5); Glucose 113 mg/dL (70-105); Osmolality,Calculated 281 (280-300); Potassium 3.7 mEq/L (3.5-5.1); Sodium 136 mEq/L (136-145); Total Protein 7.3 g/dL (6.4-8.9); eGFR For African Americans > 60 (> 60); eGFR For Non-African Americans > 60 (> 60)
[2019-10-09] MEDS ORDERED: Ringers Solution, Lactated 1,000 ML IVC ONE (18:26)
[2019-10-09] MEDS ORDERED: Ondansetron ODT 4 MG TAB.RAPDIS SL PRN (18:26)
[2019-10-09] MEDS ORDERED: Cefepime HCl 2,000 MG in Water for inj. (sterile) 20 ML IVP SCH (18:28)
[2019-10-09] MEDS ORDERED: *HR* Dextrose 50 % in Water (Syg) 50 ML SYRINGE IVP PRN (18:56)
[2019-10-09] MEDS ORDERED: D5% in Water 1,000 ML IVC PRN (18:56)
[2019-10-09] MEDS ORDERED: Dextrose Gel 15 GM/37.5 ML TUBE PO PRN ×2 (18:56)
[2019-10-09] MEDS ORDERED: Insulin LISPRO 300 UNITS/3 ML VIAL SQ SCH (21:00)
[2019-10-10] MEDS ORDERED: Gadolinium Contrast Agent (WT Based) IV PRN (03:50)
[2019-10-10] MEDS: Cefepime HCl 2,000 MG in Water for inj. (sterile) 20 ML IVP SCH ×3 (03:57→21:26)
[2019-10-10 04:45] LABS: Basophils # 0.1 K/mcL (0.0-0.2); Basophils % 0.5 %; Eosinophils # 0.2 K/mcL (0.0-0.6); Eosinophils % 1.4 %; Hematocrit 48.4 % (35.3-44.9); Immature Granulocytes % 0.6 % (0-4); Lymphocytes # 2.4 K/mcL (0.6-4.6); Mean Corpuscular HGB Conc 31.2 g/dL (31.6-35.5); Mean Corpuscular Hemoglobin 28.9 pg (28.0-33.3); Mean Corpuscular Volume 92.7 fL (83.0-100.0); Mean Platelet Volume 10.6 fL (9.4-12.4); Monocytes # 1.4 K/mcL (0.0-1.3); Monocytes % 9.4 %; Neutrophils # 10.2 K/mcL (1.6-8.9); Platelet Count 233 K/mcL (140-400); Red Blood Count 5.22 M/mcL (3.82-4.97); Red Cell Distribution Width 16.2 % (11.5-14.5); Segmented Neutrophils % 71.1 %; White Blood Count 14.4 K/mcL (4.3-11.1)
[2019-10-10 04:50] LABS: Hemoglobin 15.1 g/dL (11.5-15.4)
[2019-10-10 05:05] LABS: BUN/Creatinine Ratio 16 (6-26); Blood Urea Nitrogen 8 mg/dL (6-20); Calcium 8.6 mg/dL (8.6-10.3); Carbon Dioxide 27 mEq/L (23-29); Chloride 102 mEq/L (98-107); Glucose 134 mg/dL (70-105); Osmolality,Calculated 284 (280-300); Potassium 3.8 mEq/L (3.5-5.1); Sodium 137 mEq/L (136-145); eGFR For African Americans > 60 (> 60); eGFR For Non-African Americans > 60 (> 60)
[2019-10-10] MEDS: Insulin LISPRO 300 UNITS/3 ML VIAL SQ SCH ×3 (07:50→17:09)
[2019-10-10] MEDS ORDERED: 0.9 % Sodium Chloride 1,000 ML IV ONE (08:08)
[2019-10-10] MEDS ORDERED: D5% in Water 1,000 ML IVC PRN (16:21)
[2019-10-10] MEDS ORDERED: Dextrose Gel 15 GM/37.5 ML TUBE PO PRN ×2 (16:21)
[2019-10-10] MEDS ORDERED: *HR* Dextrose 50 % in Water (Syg) 50 ML SYRINGE IVP PRN (16:21)
[2019-10-10] MEDS: Gabapentin 300 MG CAPSULE PO SCH (21:26)
[2019-10-10] MEDS: *HR* Heparin 5,000 UNIT/ML VIAL SQ SCH (21:30)
[2019-10-11] MEDS: Cefepime HCl 2,000 MG in Water for inj. (sterile) 20 ML IVP SCH ×3 (04:29→19:26)
[2019-10-11] MEDS: *HR* Heparin 5,000 UNIT/ML VIAL SQ SCH ×3 (06:11→20:42)
[2019-10-11 08:58] LABS: Basophils # 0.1 K/mcL (0.0-0.2); Basophils % 0.6 %; Eosinophils # 0.2 K/mcL (0.0-0.6); Eosinophils % 1.7 %; Hematocrit 51.2 % (35.3-44.9); Hemoglobin 16.3 g/dL (11.5-15.4); Immature Granulocytes % 0.6 % (0-4); Lymphocytes # 2.2 K/mcL (0.6-4.6); Lymphocytes % 19.7 %; Mean Corpuscular HGB Conc 31.8 g/dL (31.6-35.5); Mean Corpuscular Hemoglobin 28.2 pg (28.0-33.3); Mean Corpuscular Volume 88.7 fL (83.0-100.0); Mean Platelet Volume 10.3 fL (9.4-12.4); Monocytes # 0.9 K/mcL (0.0-1.3); Monocytes % 8.1 %; Neutrophils # 7.7 K/mcL (1.6-8.9); Platelet Count 253 K/mcL (140-400); Red Blood Count 5.77 M/mcL (3.82-4.97); Red Cell Distribution Width 16.3 % (11.5-14.5); Segmented Neutrophils % 69.3 %; White Blood Count 11.1 K/mcL (4.3-11.1)
[2019-10-11] MEDS: Insulin LISPRO 300 UNITS/3 ML VIAL SQ SCH ×3 (09:25→17:31)
[2019-10-11] MEDS: Insulin DETEMIR 100 UNIT/ML X5UNITS SQ SCH (09:26)
[2019-10-11] MEDS: Gabapentin 300 MG CAPSULE PO SCH ×3 (09:27→20:42)
[2019-10-11 09:28] LABS: BUN/Creatinine Ratio 19 (6-26); Blood Urea Nitrogen 8 mg/dL (6-20); Calcium 9.2 mg/dL (8.6-10.3); Carbon Dioxide 28 mEq/L (23-29); Chloride 100 mEq/L (98-107); Glucose 153 mg/dL (70-105); Osmolality,Calculated 283 (280-300); Sodium 136 mEq/L (136-145); eGFR For African Americans > 60 (> 60); eGFR For Non-African Americans > 60 (> 60)
[2019-10-11 09:32] LABS: Estimated Average Glucose 177 mg/dl
[2019-10-11] MEDS ORDERED: Vancomycin 500 MG in 0.9 % Sodium Chloride Mini Bag 100 ML IVPB ONE (10:30)
[2019-10-12] MEDS: Cefepime HCl 2,000 MG in Water for inj. (sterile) 20 ML IVP SCH ×3 (04:17→20:05)
[2019-10-12] MEDS: *HR* Heparin 5,000 UNIT/ML VIAL SQ SCH ×3 (04:18→21:27)
[2019-10-12 07:01] LABS: Basophils # 0.1 K/mcL (0.0-0.2); Basophils % 0.7 %; Eosinophils # 0.2 K/mcL (0.0-0.6); Eosinophils % 1.8 %; Hematocrit 48.9 % (35.3-44.9); Hemoglobin 15.4 g/dL (11.5-15.4); Immature Granulocytes % 0.6 % (0-4); Lymphocytes # 2.2 K/mcL (0.6-4.6); Lymphocytes % 21.4 %; Mean Corpuscular HGB Conc 31.5 g/dL (31.6-35.5); Mean Corpuscular Hemoglobin 28.2 pg (28.0-33.3); Mean Corpuscular Volume 89.6 fL (83.0-100.0); Mean Platelet Volume 10.2 fL (9.4-12.4); Monocytes # 0.8 K/mcL (0.0-1.3); Monocytes % 7.8 %; Neutrophils # 7.1 K/mcL (1.6-8.9); Platelet Count 253 K/mcL (140-400); Red Blood Count 5.46 M/mcL (3.82-4.97); Segmented Neutrophils % 67.7 %; White Blood Count 10.4 K/mcL (4.3-11.1)
[2019-10-12 07:28] LABS: BUN/Creatinine Ratio 22 (6-26); Blood Urea Nitrogen 10 mg/dL (6-20); Calcium 8.8 mg/dL (8.6-10.3); Carbon Dioxide 25 mEq/L (23-29); Chloride 104 mEq/L (98-107); Glucose 183 mg/dL (70-105); Magnesium 1.9 mg/dL (1.6-2.6); Osmolality,Calculated 288 (280-300); Potassium 4.1 mEq/L (3.5-5.1); Sodium 137 mEq/L (136-145); eGFR For African Americans > 60 (> 60); eGFR For Non-African Americans > 60 (> 60)
[2019-10-12] MEDS: Insulin DETEMIR 100 UNIT/ML X5UNITS SQ SCH (08:55)
[2019-10-12] MEDS: Insulin LISPRO 300 UNITS/3 ML VIAL SQ SCH ×3 (08:55→18:33)
[2019-10-12] MEDS: Gabapentin 300 MG CAPSULE PO SCH ×3 (08:55→20:04)
[2019-10-12] MEDS: 0.9 % Sodium Chloride 1,000 ML IVC SCH (15:25)
[2019-10-12] MEDS ORDERED: Ergocalciferol (VIT D2) 50,000 UNIT (1.25MG) CAP PO SCH (18:18)
[2019-10-13] MEDS: Cefepime HCl 2,000 MG in Water for inj. (sterile) 20 ML IVP SCH ×3 (05:46→20:02)
[2019-10-13] MEDS: *HR* Heparin 5,000 UNIT/ML VIAL SQ SCH ×3 (05:47→22:09)
[2019-10-13] MEDS: 0.9 % Sodium Chloride 1,000 ML IVC SCH ×3 (07:02→20:04)
[2019-10-13 08:11] LABS: Basophils # 0.1 K/mcL (0.0-0.2); Basophils % 0.6 %; Eosinophils # 0.2 K/mcL (0.0-0.6); Eosinophils % 2.2 %; Hematocrit 49.6 % (35.3-44.9); Hemoglobin 15.5 g/dL (11.5-15.4); Immature Granulocytes % 0.5 % (0-4); Lymphocytes # 2.3 K/mcL (0.6-4.6); Lymphocytes % 21.8 %; Mean Corpuscular HGB Conc 31.3 g/dL (31.6-35.5); Mean Corpuscular Hemoglobin 28.8 pg (28.0-33.3); Mean Platelet Volume 10.1 fL (9.4-12.4); Monocytes # 0.8 K/mcL (0.0-1.3); Monocytes % 7.9 %; Neutrophils # 6.9 K/mcL (1.6-8.9); Platelet Count 253 K/mcL (140-400); Red Blood Count 5.39 M/mcL (3.82-4.97); White Blood Count 10.4 K/mcL (4.3-11.1)
[2019-10-13] MEDS: Gabapentin 300 MG CAPSULE PO SCH ×3 (08:37→20:03)
[2019-10-13] MEDS: Insulin LISPRO 300 UNITS/3 ML VIAL SQ SCH ×3 (08:37→18:14)
[2019-10-13] MEDS: Insulin DETEMIR 100 UNIT/ML X5UNITS SQ SCH (08:37)
[2019-10-13 08:38] LABS: BUN/Creatinine Ratio 19 (6-26); Blood Urea Nitrogen 8 mg/dL (6-20); Calcium 9.1 mg/dL (8.6-10.3); Carbon Dioxide 26 mEq/L (23-29); Chloride 103 mEq/L (98-107); Glucose 171 mg/dL (70-105); Magnesium 1.8 mg/dL (1.6-2.6); Osmolality,Calculated 286 (280-300); Potassium 4.1 mEq/L (3.5-5.1); Sodium 137 mEq/L (136-145); eGFR For African Americans > 60 (> 60); eGFR For Non-African Americans > 60 (> 60)
[2019-10-14] MEDS: Cefepime HCl 2,000 MG in Water for inj. (sterile) 20 ML IVP SCH ×2 (04:02→11:53)
[2019-10-14] MEDS: *HR* Heparin 5,000 UNIT/ML VIAL SQ SCH ×2 (05:08→14:26)
[2019-10-14 05:21] LABS: Basophils # 0.1 K/mcL (0.0-0.2); Basophils % 0.8 %; Eosinophils # 0.3 K/mcL (0.0-0.6); Eosinophils % 2.3 %; Hematocrit 48.1 % (35.3-44.9); Hemoglobin 15.3 g/dL (11.5-15.4); Immature Granulocytes % 0.7 % (0-4); Lymphocytes % 18.4 %; Mean Corpuscular HGB Conc 31.8 g/dL (31.6-35.5); Mean Corpuscular Hemoglobin 28.4 pg (28.0-33.3); Mean Corpuscular Volume 89.2 fL (83.0-100.0); Mean Platelet Volume 10.3 fL (9.4-12.4); Monocytes # 1.1 K/mcL (0.0-1.3); Monocytes % 10.1 %; Neutrophils # 7.2 K/mcL (1.6-8.9); Platelet Count 257 K/mcL (140-400); Red Blood Count 5.39 M/mcL (3.82-4.97); Red Cell Distribution Width 15.9 % (11.5-14.5); Segmented Neutrophils % 67.7 %; White Blood Count 10.7 K/mcL (4.3-11.1)
[2019-10-14 05:51] LABS: BUN/Creatinine Ratio 29 (6-26); Blood Urea Nitrogen 12 mg/dL (6-20); Calcium 9.2 mg/dL (8.6-10.3); Carbon Dioxide 26 mEq/L (23-29); Chloride 103 mEq/L (98-107); Glucose 152 mg/dL (70-105); Magnesium 1.8 mg/dL (1.6-2.6); Osmolality,Calculated 289 (280-300); Potassium 4.2 mEq/L (3.5-5.1); Sodium 138 mEq/L (136-145); eGFR For African Americans > 60 (> 60); eGFR For Non-African Americans > 60 (> 60)
[2019-10-14] MEDS: 0.9 % Sodium Chloride 1,000 ML IVC SCH (08:59)
[2019-10-14] MEDS: Insulin LISPRO 300 UNITS/3 ML VIAL SQ SCH ×2 (09:00→11:53)
[2019-10-14] MEDS: Gabapentin 300 MG CAPSULE PO SCH ×2 (09:00→14:26)
[2019-10-14] MEDS: Insulin DETEMIR 100 UNIT/ML X5UNITS SQ SCH (09:00)
[2019-10-14 14:13] VITALS: BP 115/77
[2019-10-14] MEDS ORDERED: Aminoglycoside Consult 1 EACH MC ONE (18:04)
== END 2019-10-14 18:05 | disposition home or self-care (01) | DRG 710 ==
LOC: 3ANU 14:55 → EMEROOARM 14:55 → SUATTDRO 18:06 → 3ANU 18:47
PROVIDERS: ADMIT Internal Medicine; ATTEND Pharmacist

== ENCOUNTER 2020-11-15 15:41 | Inpatient (IN) ==
[2020-11-15] MEDS ORDERED: 0.9 % Sodium Chloride 1,000 ML IVC ONE ×2 (16:15→17:12)
[2020-11-15] MEDS ORDERED: Vancomycin 1,750 MG in 0.9 % Sodium Chloride 250 ML IVPB ONE (16:17)
[2020-11-15] MEDS ORDERED: Cefepime HCl 1,000 MG in Water for inj. (sterile) 10 ML IVP ONE (16:17)
[2020-11-15] MEDS ORDERED: Vancomycin 1,750 MG/517.5 ML IV.SOLN IVPB ONE (16:19)
[2020-11-15 16:44] LABS: Basophils # 0.1 K/mcL (0.0-0.2); Basophils % 0.6 %; Eosinophils # 0.3 K/mcL (0.0-0.6); Eosinophils % 1.9 %; Hematocrit 47.5 % (35.3-44.9); Hemoglobin 15.1 g/dL (11.5-15.4); Immature Granulocytes % 0.5 % (0-4); Lymphocytes # 2.3 K/mcL (0.6-4.6); Lymphocytes % 17.2 %; Mean Corpuscular HGB Conc 31.8 g/dL (31.6-35.5); Mean Corpuscular Hemoglobin 29.5 pg (28.0-33.3); Mean Platelet Volume 10.5 fL (9.4-12.4); Monocytes % 7.1 %; Neutrophils # 9.8 K/mcL (1.6-8.9); Platelet Count 212 K/mcL (140-400); Red Blood Count 5.11 M/mcL (3.82-4.97); Red Cell Distribution Width 14.6 % (11.5-14.5); Segmented Neutrophils % 72.7 %; White Blood Count 13.5 K/mcL (4.3-11.1)
[2020-11-15 17:03] LABS: BUN/Creatinine Ratio 13 (6-26); Blood Urea Nitrogen 6 mg/dL (6-20); Calcium 9.2 mg/dL (8.6-10.3); Carbon Dioxide 26 mEq/L (23-29); Chloride 100 mEq/L (98-107); Glucose 285 mg/dL (70-105); Osmolality,Calculated 290 (280-300); Potassium 3.6 mEq/L (3.5-5.1); Sodium 136 mEq/L (136-145); eGFR For African Americans > 60 (> 60); eGFR For Non-African Americans > 60 (> 60)
[2020-11-15] MEDS ORDERED: Ondansetron 4 MG/2 ML VIAL IVP PRN (17:35)
[2020-11-15] MEDS ORDERED: D5% in Water 1,000 ML IVC PRN (17:35)
[2020-11-15] MEDS ORDERED: Naloxone 0.4 MG/ML INJ IVP PRN (17:35)
[2020-11-15] MEDS ORDERED: *HR* Dextrose 50 % in Water (Vial) 50 ML VIAL IVP PRN (17:35)
[2020-11-15] MEDS ORDERED: Dextrose Gel 15 GM/37.5 ML TUBE PO PRN ×2 (17:35)
[2020-11-15] MEDS ORDERED: Acetaminophen 325 MG TABLET PO PRN (17:35)
[2020-11-15] MEDS: Piperacillin/Tazobactam 3.375 GM in 0.9 % Sodium Chloride Mini Bag 100 ML IVPB SCH (18:41)
[2020-11-15] MEDS: Insulin LISPRO 300 UNITS/3 ML VIAL SUBQ SCH (18:44)
[2020-11-15] MEDS: *HR* HYDROcodone/Acet 5/325 mg TABLET PO PRN (21:09)
[2020-11-15] MEDS: 0.9 % Sodium Chloride 1,000 ML IVC SCH (21:10)
[2020-11-15] MEDS: Lactobacillus 1 EACH CAP.SPRINK PO SCH (23:25)
[2020-11-16 02:05] LABS: Basophils # 0.1 K/mcL (0.0-0.2); Basophils % 0.5 %; Eosinophils # 0.3 K/mcL (0.0-0.6); Eosinophils % 2.4 %; Hematocrit 44.1 % (35.3-44.9); Hemoglobin 13.9 g/dL (11.5-15.4); Immature Granulocytes % 0.5 % (0-4); Lymphocytes # 2.9 K/mcL (0.6-4.6); Lymphocytes % 21.6 %; Mean Corpuscular HGB Conc 31.5 g/dL (31.6-35.5); Mean Platelet Volume 10.5 fL (9.4-12.4); Monocytes % 7.9 %; Neutrophils # 8.9 K/mcL (1.6-8.9); Platelet Count 230 K/mcL (140-400); Red Blood Count 4.64 M/mcL (3.82-4.97); Red Cell Distribution Width 14.6 % (11.5-14.5); Segmented Neutrophils % 67.1 %; White Blood Count 13.2 K/mcL (4.3-11.1)
[2020-11-16] MEDS: Piperacillin/Tazobactam 3.375 GM in 0.9 % Sodium Chloride Mini Bag 100 ML IVPB SCH ×3 (02:10→17:52)
[2020-11-16 02:21] LABS: INR 1.2; Prothrombin Time 13.8 Seconds (9.4-12.1)
[2020-11-16 02:24] LABS: Activated Partial Thrombo Time 33.1 Seconds (26.0-36.0)
[2020-11-16 02:26] LABS: BUN/Creatinine Ratio 21 (6-26); Blood Urea Nitrogen 7 mg/dL (6-20); Calcium 8.2 mg/dL (8.6-10.3); Carbon Dioxide 25 mEq/L (23-29); Chloride 104 mEq/L (98-107); Glucose 155 mg/dL (70-105); Osmolality,Calculated 285 (280-300); Potassium 3.6 mEq/L (3.5-5.1); Sodium 137 mEq/L (136-145); eGFR For African Americans > 60 (> 60); eGFR For Non-African Americans > 60 (> 60)
[2020-11-16] MEDS: Vancomycin 1,750 MG/517.5 ML IV.SOLN IVPB SCH ×2 (05:29→17:52)
[2020-11-16] MEDS: *HR* Enoxaparin 40 MG/0.4 ML SYRINGE SQ SCH (05:29)
[2020-11-16 06:54] LABS: Estimated Average Glucose 226 mg/dl; Hemoglobin A1C 9.5 %
[2020-11-16] MEDS: Insulin LISPRO 300 UNITS/3 ML VIAL SUBQ SCH ×3 (07:40→17:52)
[2020-11-16] MEDS: 0.9 % Sodium Chloride 1,000 ML IVC SCH (08:00)
[2020-11-16] MEDS: Lactobacillus 1 EACH CAP.SPRINK PO SCH ×2 (08:01→21:05)
[2020-11-16] MEDS: Gabapentin 300 MG CAPSULE PO SCH ×2 (14:37→21:04)
[2020-11-16] MEDS: Insulin DETEMIR 100 UNIT/ML X5UNITS SUBQ SCH (21:07)
[2020-11-17] MEDS: Piperacillin/Tazobactam 3.375 GM in 0.9 % Sodium Chloride Mini Bag 100 ML IVPB SCH ×3 (02:29→17:27)
[2020-11-17 04:59] LABS: Basophils # 0.1 K/mcL (0.0-0.2); Basophils % 0.6 %; Eosinophils # 0.2 K/mcL (0.0-0.6); Hemoglobin 13.8 g/dL (11.5-15.4); Immature Granulocytes % 0.5 % (0-4); Lymphocytes # 2.3 K/mcL (0.6-4.6); Lymphocytes % 20.3 %; Mean Corpuscular HGB Conc 32.1 g/dL (31.6-35.5); Mean Corpuscular Volume 93.5 fL (83.0-100.0); Mean Platelet Volume 10.5 fL (9.4-12.4); Monocytes # 0.9 K/mcL (0.0-1.3); Monocytes % 8.3 %; Neutrophils # 7.6 K/mcL (1.6-8.9); Platelet Count 215 K/mcL (140-400); Red Cell Distribution Width 14.6 % (11.5-14.5); Segmented Neutrophils % 68.3 %; White Blood Count 11.2 K/mcL (4.3-11.1)
[2020-11-17 05:17] LABS: BUN/Creatinine Ratio 15 (6-26); Blood Urea Nitrogen 5 mg/dL (6-20); Calcium 8.6 mg/dL (8.6-10.3); Carbon Dioxide 25 mEq/L (23-29); Chloride 104 mEq/L (98-107); Glucose 163 mg/dL (70-105); Osmolality,Calculated 283 (280-300); Potassium 3.6 mEq/L (3.5-5.1); Sodium 136 mEq/L (136-145); eGFR For African Americans > 60 (> 60); eGFR For Non-African Americans > 60 (> 60)
[2020-11-17] MEDS: *HR* Enoxaparin 40 MG/0.4 ML SYRINGE SQ SCH (05:30)
[2020-11-17] MEDS: Vancomycin 2,000 MG/520 ML IV.SOLN IVPB SCH ×2 (06:47→17:27)
[2020-11-17] MEDS: Insulin LISPRO 300 UNITS/3 ML VIAL SUBQ SCH ×3 (08:22→17:27)
[2020-11-17] MEDS: Lactobacillus 1 EACH CAP.SPRINK PO SCH ×2 (08:23→21:51)
[2020-11-17] MEDS: Gabapentin 300 MG CAPSULE PO SCH ×3 (08:23→21:51)
[2020-11-17] MEDS: *HR* HYDROcodone/Acet 5/325 mg TABLET PO PRN (21:51)
[2020-11-17] MEDS: Insulin DETEMIR 100 UNIT/ML X5UNITS SUBQ SCH (21:51)
[2020-11-18] MEDS: Piperacillin/Tazobactam 3.375 GM in 0.9 % Sodium Chloride Mini Bag 100 ML IVPB SCH (01:28)
[2020-11-18] MEDS: *HR* Enoxaparin 40 MG/0.4 ML SYRINGE SQ SCH (05:05)
[2020-11-18] MEDS: Vancomycin 2,000 MG/520 ML IV.SOLN IVPB SCH (05:05)
[2020-11-18 06:40] LABS: Basophils # 0.1 K/mcL (0.0-0.2); Basophils % 0.7 %; Eosinophils # 0.2 K/mcL (0.0-0.6); Eosinophils % 2.1 %; Hematocrit 42.6 % (35.3-44.9); Hemoglobin 13.3 g/dL (11.5-15.4); Immature Granulocytes % 0.8 % (0-4); Lymphocytes # 2.3 K/mcL (0.6-4.6); Lymphocytes % 21.4 %; Mean Corpuscular HGB Conc 31.2 g/dL (31.6-35.5); Mean Corpuscular Hemoglobin 29.6 pg (28.0-33.3); Mean Corpuscular Volume 94.7 fL (83.0-100.0); Mean Platelet Volume 10.4 fL (9.4-12.4); Monocytes % 9.2 %; Neutrophils # 6.9 K/mcL (1.6-8.9); Platelet Count 233 K/mcL (140-400); Red Cell Distribution Width 14.6 % (11.5-14.5); Segmented Neutrophils % 65.8 %; White Blood Count 10.5 K/mcL (4.3-11.1)
[2020-11-18 07:02] LABS: BUN/Creatinine Ratio 18 (6-26); Blood Urea Nitrogen 6 mg/dL (6-20); Calcium 8.8 mg/dL (8.6-10.3); Carbon Dioxide 25 mEq/L (23-29); Chloride 104 mEq/L (98-107); Glucose 160 mg/dL (70-105); Osmolality,Calculated 283 (280-300); Potassium 3.6 mEq/L (3.5-5.1); Sodium 136 mEq/L (136-145); eGFR For African Americans > 60 (> 60); eGFR For Non-African Americans > 60 (> 60)
[2020-11-18 07:35] VITALS: BP 107/72
[2020-11-18] MEDS: Gabapentin 300 MG CAPSULE PO SCH (07:39)
[2020-11-18] MEDS: Lactobacillus 1 EACH CAP.SPRINK PO SCH (07:39)
[2020-11-18] MEDS: Insulin LISPRO 300 UNITS/3 ML VIAL SUBQ SCH (07:39)
== END 2020-11-18 14:11 | disposition home or self-care (01) | DRG 720 ==
LOC: 3ANU 15:41 → EMEROOARM 15:41 → SUATTDRO 17:39 → 3ANU 18:12 → SUATTDRO 11-17 14:30
PROVIDERS: ADMIT Internal Medicine; ATTEND Student in an Organized Health Care Education/Training Program

== ENCOUNTER 2021-07-07 18:44 | Inpatient (IN) ==
[2021-07-07] MEDS ORDERED: 0.9 % Sodium Chloride 1,000 ML IVC ONE ×2 (19:48→21:00)
[2021-07-07] MEDS ORDERED: Albuterol 2.5 MG/3 ML NEBULIZER IH ONE (20:07)
[2021-07-07 20:14] LABS: Basophils # 0.1 K/mcL (0.0-0.2); Basophils % 0.4 %; Eosinophils % 0.1 %; Hematocrit 48.8 % (35.3-44.9); Immature Granulocytes % 0.6 % (0-4); Lymphocytes # 1.3 K/mcL (0.6-4.6); Lymphocytes % 8.2 %; Mean Corpuscular HGB Conc 32.8 g/dL (31.6-35.5); Mean Corpuscular Hemoglobin 29.4 pg (28.0-33.3); Mean Corpuscular Volume 89.7 fL (83.0-100.0); Mean Platelet Volume 10.6 fL (9.4-12.4); Monocytes # 1.2 K/mcL (0.0-1.3); Monocytes % 7.8 %; Neutrophils # 12.9 K/mcL (1.6-8.9); Platelet Count 211 K/mcL (140-400); Red Blood Count 5.44 M/mcL (3.82-4.97); Red Cell Distribution Width 14.5 % (11.5-14.5); Segmented Neutrophils % 82.9 %; White Blood Count 15.6 K/mcL (4.3-11.1)
[2021-07-07 20:31] LABS: BUN/Creatinine Ratio 12 (6-26); Blood Urea Nitrogen 5 mg/dL (6-20); Calcium 9.1 mg/dL (8.6-10.3); Carbon Dioxide 25 mEq/L (23-29); Chloride 97 mEq/L (98-107); Glucose 203 mg/dL (70-105); Osmolality,Calculated 275 (280-300); Potassium 3.7 mEq/L (3.5-5.1); Sodium 131 mEq/L (136-145); Troponin I < 0.03 ng/mL (< 0.04); eGFR For African Americans > 60 (> 60); eGFR For Non-African Americans > 60 (> 60)
[2021-07-07 20:57] LABS: Influenza A PCR Negative (Negative); Influenza B PCR Negative (Negative); Resp. Syncytial Virus PCR Negative (Negative); SARS-CoV-2 by PCR (In House) Negative (Negative)
[2021-07-07 22:31] LABS: Bilirubin,Urine Negative (Negative); Blood,Urine Negative (Negative); Clarity,Urine Turbid (Clear); Color,Urine Light-Yellow (Yellow); Glucose,Urine (UA) Normal (Normal); Ketones,Urine Negative (Negative); Leukocyte Esterase,Urine Small (Negative); Mucus,Urine Few per lpf (None-Few); Nitrite,Urine Negative (Negative); PH,Urine 6.5 pH Units (5.0-8.0); Protein,Urine Trace mg/dL (Neg-Trace); Specific Gravity,Urine 1.009 (1.010-1.025); Squamous Epithelial Cell,Urine Few per hpf (None-Few); Urobilinogen,Urine Normal (Normal)
[2021-07-07] MEDS ORDERED: Isovue-370 500 ML BOTTLE IVP ONE (22:35)
[2021-07-08] MEDS ORDERED: Isovue-370 500 ML BOTTLE IVP ONE (01:07)
[2021-07-08 01:42] LABS: ABG Base Excess -1 mEq/L (-2 to 3); ABG HCO3 25 mEq/L (21-27); ABG Oxygen Saturation 95 % (95-98); ABG PCO2 46 mmHg (35-45); ABG PH 7.35 pH Units (7.32-7.45); ABG PO2 79 mmHg (85-104); ABG TCO2 27 mEq/L (20-26); Blood Gas Modality 3LPM
[2021-07-08] MEDS ORDERED: cefTRIAXone 1,000 MG in 0.9 % Sodium Chloride Mini Bag 100 ML IVPB ONE (02:32)
[2021-07-08] MEDS ORDERED: Azithromycin 500 MG in 0.9 % Sodium Chloride 250 ML IVPB ONE (02:32)
[2021-07-08] MEDS ORDERED: Ondansetron 4 MG/2 ML VIAL IVP PRN (05:05)
[2021-07-08] MEDS ORDERED: Naloxone 0.4 MG/ML INJ IVP PRN (05:05)
[2021-07-08] MEDS ORDERED: Melatonin 3 MG TABLET PO PRN (05:05)
[2021-07-08] MEDS: Acetaminophen 325 MG TABLET PO PRN ×2 (05:29→11:29)
[2021-07-08] MEDS: 0.9 % Sodium Chloride 1,000 ML IVC SCH ×2 (05:33→06:57)
[2021-07-08 06:07] LABS: Basophils # 0.1 K/mcL (0.0-0.2); Basophils % 0.3 %; Hematocrit 49.6 % (35.3-44.9); Hemoglobin 15.7 g/dL (11.5-15.4); Immature Granulocytes % 0.7 % (0-4); Lymphocytes # 0.9 K/mcL (0.6-4.6); Mean Corpuscular HGB Conc 31.7 g/dL (31.6-35.5); Mean Corpuscular Hemoglobin 29.2 pg (28.0-33.3); Mean Corpuscular Volume 92.2 fL (83.0-100.0); Mean Platelet Volume 11.2 fL (9.4-12.4); Monocytes # 1.3 K/mcL (0.0-1.3); Monocytes % 7.3 %; Neutrophils # 15.4 K/mcL (1.6-8.9); Platelet Count 191 K/mcL (140-400); Red Blood Count 5.38 M/mcL (3.82-4.97); Red Cell Distribution Width 14.7 % (11.5-14.5); Segmented Neutrophils % 86.7 %; White Blood Count 17.8 K/mcL (4.3-11.1)
[2021-07-08 06:18] LABS: INR 1.3; Prothrombin Time 14.2 Seconds (9.4-12.1)
[2021-07-08 06:20] LABS: Activated Partial Thrombo Time 47.1 Seconds (26.0-36.0)
[2021-07-08] MEDS ORDERED: Dextrose Gel 15 GM/37.5 ML TUBE PO PRN ×2 (06:36)
[2021-07-08] MEDS ORDERED: D5% in Water 1,000 ML IVC PRN (06:36)
[2021-07-08] MEDS ORDERED: *HR* Dextrose 50 % in Water (Syg) 50 ML SYRINGE IVP PRN (06:36)
[2021-07-08 08:33] LABS: Alanine Aminotransferase 11 Units/L (7-52); Albumin 3.8 g/dL (3.5-5.7); Albumin/Globulin Ratio 1.2 (1.1-2.2); Alkaline Phosphatase 83 Units/L (34-104); Aspartate Amino Transferase 18 Units/L (13-39); BUN/Creatinine Ratio 10 (6-26); Bilirubin,Total 0.7 mg/dL (0.3-1.0); Blood Urea Nitrogen 4 mg/dL (6-20); Calcium 8.8 mg/dL (8.6-10.3); Carbon Dioxide 24 mEq/L (23-29); Chloride 98 mEq/L (98-107); Globulin 3.2 g/dL (2.4-3.5); Glucose 233 mg/dL (70-105); Magnesium 1.5 mg/dL (1.6-2.6); Osmolality,Calculated 278 (280-300); Phosphorous 2.8 mg/dL (2.7-4.5); Potassium 3.7 mEq/L (3.5-5.1); Sodium 132 mEq/L (136-145); eGFR For African Americans > 60 (> 60); eGFR For Non-African Americans > 60 (> 60)
[2021-07-08] MEDS: Insulin LISPRO 300 UNITS/3 ML VIAL SUBQ SCH ×3 (08:54→18:14)
[2021-07-08] MEDS: *HR* Heparin 5,000 UNIT/ML VIAL SQ SCH (18:19)
[2021-07-08] MEDS ORDERED: Insulin DETEMIR 100 UNIT/ML X5UNITS SUBQ SCH (21:00)
[2021-07-08] MEDS ORDERED: Insulin LISPRO 300 UNITS/3 ML VIAL SUBQ SCH (21:00)
[2021-07-09 05:18] LABS: BUN/Creatinine Ratio 18 (6-26); Blood Urea Nitrogen 7 mg/dL (6-20); Calcium 8.2 mg/dL (8.6-10.3); Carbon Dioxide 28 mEq/L (23-29); Chloride 101 mEq/L (98-107); Glucose 202 mg/dL (70-105); Osmolality,Calculated 284 (280-300); Potassium 3.5 mEq/L (3.5-5.1); Sodium 135 mEq/L (136-145); eGFR For African Americans > 60 (> 60); eGFR For Non-African Americans > 60 (> 60)
[2021-07-09 05:21] LABS: Hematocrit 47.8 % (35.3-44.9); Hemoglobin 14.9 g/dL (11.5-15.4); Mean Corpuscular HGB Conc 31.2 g/dL (31.6-35.5); Mean Corpuscular Hemoglobin 29.2 pg (28.0-33.3); Mean Corpuscular Volume 93.5 fL (83.0-100.0); Mean Platelet Volume 10.8 fL (9.4-12.4); Platelet Count 188 K/mcL (140-400); Red Blood Count 5.11 M/mcL (3.82-4.97); Red Cell Distribution Width 14.7 % (11.5-14.5); White Blood Count 11.2 K/mcL (4.3-11.1)
[2021-07-09] MEDS: *HR* Heparin 5,000 UNIT/ML VIAL SQ SCH (05:49)
[2021-07-09] MEDS: Acetaminophen 325 MG TABLET PO PRN (05:50)
[2021-07-09] MEDS ORDERED: Azithromycin 500 MG in D5% in Water 250 ML IVPB SCH (06:00)
[2021-07-09 07:19] VITALS: BP 94/64; PULSE 98; TEMP 97.9; O2SAT 96
[2021-07-09] MEDS: Insulin LISPRO 300 UNITS/3 ML VIAL SUBQ SCH ×2 (07:37→12:48)
[2021-07-09] MEDS ORDERED: cefTRIAXone 1,000 MG in Water for inj. (sterile) 10 ML IVP SCH (09:00)
[2021-07-09 11:03] LABS: Estimated Average Glucose 280 mg/dl; Hemoglobin A1C 11.4 %
== END 2021-07-09 17:47 | disposition home or self-care (01) | DRG 720 ==
LOC: 3BNU 18:44 → EMEROOARM 18:44 → 3BNU 07-08 04:20 → SUATTDRO 07-08 15:26
PROVIDERS: ADMIT Family Medicine; ATTEND Registered Nurse

== ENCOUNTER 2021-09-07 11:33 | Observation (INO) ==
[2021-09-07] MEDS ORDERED: Melatonin 3 MG TABLET PO PRN (12:10)
[2021-09-07] MEDS ORDERED: Acetaminophen 325 MG TABLET PO PRN (12:10)
[2021-09-07] MEDS ORDERED: Naloxone 0.4 MG/ML INJ IVP PRN (12:10)
[2021-09-07] MEDS ORDERED: Ondansetron 4 MG/2 ML VIAL IVP PRN (12:10)
[2021-09-07] MEDS ORDERED: *HR* Dextrose 50 % in Water (Syg) 50 ML SYRINGE IVP PRN (12:13)
[2021-09-07] MEDS ORDERED: D5% in Water 1,000 ML IVC PRN (12:13)
[2021-09-07] MEDS ORDERED: Dextrose Gel 15 GM/37.5 ML TUBE PO PRN ×2 (12:13)
[2021-09-07 14:01] LABS: Basophils # 0.1 K/mcL (0.0-0.2); Basophils % 0.5 %; Eosinophils # 0.2 K/mcL (0.0-0.6); Eosinophils % 1.5 %; Hematocrit 46.5 % (35.3-44.9); Hemoglobin 15.2 g/dL (11.5-15.4); Immature Granulocytes % 0.5 % (0-4); Lymphocytes # 3.5 K/mcL (0.6-4.6); Lymphocytes % 25.4 %; Mean Corpuscular HGB Conc 32.7 g/dL (31.6-35.5); Mean Corpuscular Hemoglobin 29.7 pg (28.0-33.3); Mean Platelet Volume 10.6 fL (9.4-12.4); Monocytes % 7.6 %; Neutrophils # 8.8 K/mcL (1.6-8.9); Platelet Count 262 K/mcL (140-400); Red Blood Count 5.11 M/mcL (3.82-4.97); Red Cell Distribution Width 15.1 % (11.5-14.5); Segmented Neutrophils % 64.5 %; White Blood Count 13.6 K/mcL (4.3-11.1)
[2021-09-07 14:07] LABS: INR 1.2; Prothrombin Time 13.4 Seconds (9.4-12.1)
[2021-09-07 14:12] LABS: Estimated Average Glucose 249 mg/dl; Hemoglobin A1C 10.3 %
[2021-09-07] MEDS: Insulin LISPRO 300 UNITS/3 ML VIAL SUBQ SCH ×3 (14:19→20:36)
[2021-09-07] MEDS ORDERED: *HR* HYDROcodone/Acet 5/325 mg TABLET PO PRN (14:21)
[2021-09-07 14:22] LABS: Alanine Aminotransferase 10 Units/L (7-52); Albumin 3.9 g/dL (3.5-5.7); Albumin/Globulin Ratio 1.1 (1.1-2.2); Alkaline Phosphatase 87 Units/L (34-104); Aspartate Amino Transferase 13 Units/L (13-39); BUN/Creatinine Ratio 14 (6-26); Bilirubin,Total 0.8 mg/dL (0.3-1.0); Blood Urea Nitrogen 5 mg/dL (6-20); C-Reactive Protein 44 mg/L (Less than 10); Calcium 9.3 mg/dL (8.6-10.3); Carbon Dioxide 29 mEq/L (23-29); Chloride 99 mEq/L (98-107); Globulin 3.6 g/dL (2.4-3.5); Glucose 166 mg/dL (70-105); Osmolality,Calculated 287 (280-300); Potassium 3.7 mEq/L (3.5-5.1); Sodium 138 mEq/L (136-145); Total Protein 7.5 g/dL (6.4-8.9); eGFR For African Americans > 60 (> 60); eGFR For Non-African Americans > 60 (> 60)
[2021-09-07] MEDS: Gabapentin 300 MG CAPSULE PO SCH ×2 (14:26→20:35)
[2021-09-07] MEDS ORDERED: Gadolinium Contrast Agent (WT Based) IV PRN (14:31)
[2021-09-07] MEDS: Piperacillin/Tazobactam 3.375 GM in 0.9 % Sodium Chloride Mini Bag 100 ML IVPB SCH ×2 (16:41→23:49)
[2021-09-07] MEDS ORDERED: GADOBUTROL 30 MMOL/30 ML VIAL IVP ONE (18:29)
[2021-09-07] MEDS: Insulin DETEMIR 100 UNIT/ML X5UNITS SUBQ SCH (20:35)
[2021-09-08 06:04] LABS: Hematocrit 46.8 % (35.3-44.9); Hemoglobin 14.9 g/dL (11.5-15.4); Mean Corpuscular HGB Conc 31.8 g/dL (31.6-35.5); Mean Corpuscular Hemoglobin 29.4 pg (28.0-33.3); Mean Corpuscular Volume 92.3 fL (83.0-100.0); Mean Platelet Volume 10.5 fL (9.4-12.4); Platelet Count 247 K/mcL (140-400); Red Blood Count 5.07 M/mcL (3.82-4.97); Red Cell Distribution Width 15.4 % (11.5-14.5); White Blood Count 10.6 K/mcL (4.3-11.1)
[2021-09-08 06:13] LABS: BUN/Creatinine Ratio 18 (6-26); Blood Urea Nitrogen 8 mg/dL (6-20); Calcium 8.9 mg/dL (8.6-10.3); Carbon Dioxide 29 mEq/L (23-29); Chloride 101 mEq/L (98-107); Glucose 219 mg/dL (70-105); Magnesium 1.6 mg/dL (1.6-2.6); Osmolality,Calculated 289 (280-300); Sodium 137 mEq/L (136-145); eGFR For African Americans > 60 (> 60); eGFR For Non-African Americans > 60 (> 60)
[2021-09-08] MEDS: Piperacillin/Tazobactam 3.375 GM in 0.9 % Sodium Chloride Mini Bag 100 ML IVPB SCH ×3 (07:52→23:47)
[2021-09-08] MEDS: Gabapentin 300 MG CAPSULE PO SCH ×3 (07:53→20:40)
[2021-09-08] MEDS: Insulin LISPRO 300 UNITS/3 ML VIAL SUBQ SCH ×4 (07:58→20:40)
[2021-09-08] MEDS ORDERED: Budesonide/Formoterol 160/4.5 1 PUFF INH IH PRN (14:37)
[2021-09-08] MEDS: Insulin DETEMIR 100 UNIT/ML X5UNITS SUBQ SCH (20:40)
[2021-09-09 05:58] LABS: Hematocrit 47.1 % (35.3-44.9); Hemoglobin 14.9 g/dL (11.5-15.4); Mean Corpuscular HGB Conc 31.6 g/dL (31.6-35.5); Mean Corpuscular Hemoglobin 29.4 pg (28.0-33.3); Mean Corpuscular Volume 93.1 fL (83.0-100.0); Mean Platelet Volume 10.5 fL (9.4-12.4); Platelet Count 256 K/mcL (140-400); Red Blood Count 5.06 M/mcL (3.82-4.97); Red Cell Distribution Width 15.3 % (11.5-14.5); White Blood Count 9.9 K/mcL (4.3-11.1)
[2021-09-09 06:27] LABS: BUN/Creatinine Ratio 20 (6-26); Blood Urea Nitrogen 8 mg/dL (6-20); Calcium 9.2 mg/dL (8.6-10.3); Carbon Dioxide 28 mEq/L (23-29); Chloride 102 mEq/L (98-107); Glucose 231 mg/dL (70-105); Magnesium 1.7 mg/dL (1.6-2.6); Osmolality,Calculated 290 (280-300); Potassium 4.1 mEq/L (3.5-5.1); Sodium 137 mEq/L (136-145); eGFR For African Americans > 60 (> 60); eGFR For Non-African Americans > 60 (> 60)
[2021-09-09] MEDS: Gabapentin 300 MG CAPSULE PO SCH (08:25)
[2021-09-09] MEDS: Piperacillin/Tazobactam 3.375 GM in 0.9 % Sodium Chloride Mini Bag 100 ML IVPB SCH (08:25)
[2021-09-09] MEDS: Insulin LISPRO 300 UNITS/3 ML VIAL SUBQ SCH ×2 (08:28→12:07)
[2021-09-09] MEDS ORDERED: BuPROPion XL (24 HR) 150 MG TABLET PO SCH (09:00)
[2021-09-09 10:53] VITALS: BP 104/57; PULSE 84; TEMP 97.6; O2SAT 97
[2021-09-09] MEDS ORDERED: FLU Vac QV 21-22 (6Month+)/PF 0.5 ML SYRINGE IM ONE (10:59)
== END 2021-09-09 13:05 | disposition home or self-care (01) ==
LOC: 4WAOSI → SUATTDRO 11:36
PROVIDERS: ADMIT Internal Medicine; ATTEND Internal Medicine

== ENCOUNTER 2021-11-16 11:29 | Inpatient (IN) ==
[2021-11-16] MEDS ORDERED: Naloxone 0.4 MG/ML INJ IVP PRN (13:40)
[2021-11-16 14:24] LABS: Basophils # 0.1 K/mcL (0.0-0.2); Basophils % 0.5 %; Eosinophils # 0.2 K/mcL (0.0-0.6); Eosinophils % 1.3 %; Hematocrit 46.6 % (35.3-44.9); Hemoglobin 15.5 g/dL (11.5-15.4); Immature Granulocytes % 0.5 % (0-4); Lymphocytes # 2.2 K/mcL (0.6-4.6); Lymphocytes % 14.8 %; Mean Corpuscular HGB Conc 33.3 g/dL (31.6-35.5); Mean Corpuscular Hemoglobin 30.5 pg (28.0-33.3); Mean Corpuscular Volume 91.7 fL (83.0-100.0); Mean Platelet Volume 10.6 fL (9.4-12.4); Monocytes # 1.5 K/mcL (0.0-1.3); Monocytes % 9.7 %; Neutrophils # 10.9 K/mcL (1.6-8.9); Platelet Count 233 K/mcL (140-400); Red Blood Count 5.08 M/mcL (3.82-4.97); Red Cell Distribution Width 14.6 % (11.5-14.5); Segmented Neutrophils % 73.2 %; White Blood Count 14.9 K/mcL (4.3-11.1)
[2021-11-16 14:50] LABS: BUN/Creatinine Ratio 16 (6-26); Blood Urea Nitrogen 7 mg/dL (6-20); C-Reactive Protein 132 mg/L (Less than 10); Calcium 9.2 mg/dL (8.6-10.3); Carbon Dioxide 28 mEq/L (23-29); Chloride 98 mEq/L (98-107); Glucose 190 mg/dL (70-105); Osmolality,Calculated 283 (280-300); Potassium 3.6 mEq/L (3.5-5.1); Sodium 135 mEq/L (136-145); eGFR For African Americans > 60 (> 60); eGFR For Non-African Americans > 60 (> 60)
[2021-11-16 14:53] LABS: Estimated Average Glucose 246 mg/dl; Hemoglobin A1C 10.2 %
[2021-11-16] MEDS: *HR* Heparin 5,000 UNIT/ML VIAL SQ SCH (16:27)
[2021-11-16] MEDS ORDERED: Budesonide/Formoterol 160/4.5 1 PUFF INH IH PRN (16:47)
[2021-11-16] MEDS ORDERED: Dextrose 4 GM Chewable Tablets PO PRN ×2 (16:49)
[2021-11-16] MEDS ORDERED: D5% in Water 1,000 ML IVC PRN (16:49)
[2021-11-16] MEDS ORDERED: *HR* Dextrose 50 % in Water (Syg) 50 ML SYRINGE IVP PRN (16:49)
[2021-11-16] MEDS ORDERED: Insulin DETEMIR 100 UNIT/ML X5UNITS SUBQ SCH (18:00)
[2021-11-16] MEDS: *HR* OxyCODONE/APAP 7.5/325 TABLET PO PRN (18:04)
[2021-11-16] MEDS: Insulin LISPRO 300 UNITS/3 ML VIAL SUBQ SCH (21:12)
[2021-11-16] MEDS: Gabapentin 300 MG CAPSULE PO SCH (21:12)
[2021-11-17] MEDS: *HR* OxyCODONE/APAP 7.5/325 TABLET PO PRN ×3 (03:40→22:47)
[2021-11-17 04:04] LABS: Basophils # 0.1 K/mcL (0.0-0.2); Basophils % 0.7 %; Eosinophils # 0.3 K/mcL (0.0-0.6); Eosinophils % 2.6 %; Hematocrit 44.8 % (35.3-44.9); Hemoglobin 14.5 g/dL (11.5-15.4); Immature Granulocytes % 0.7 % (0-4); Lymphocytes # 2.5 K/mcL (0.6-4.6); Lymphocytes % 21.1 %; Mean Corpuscular HGB Conc 32.4 g/dL (31.6-35.5); Mean Corpuscular Hemoglobin 30.1 pg (28.0-33.3); Mean Corpuscular Volume 92.9 fL (83.0-100.0); Mean Platelet Volume 10.7 fL (9.4-12.4); Monocytes # 1.2 K/mcL (0.0-1.3); Monocytes % 10.2 %; Neutrophils # 7.7 K/mcL (1.6-8.9); Platelet Count 246 K/mcL (140-400); Red Blood Count 4.82 M/mcL (3.82-4.97); Red Cell Distribution Width 14.6 % (11.5-14.5); Segmented Neutrophils % 64.7 %
[2021-11-17 04:17] LABS: BUN/Creatinine Ratio 20 (6-26); Blood Urea Nitrogen 9 mg/dL (6-20); Calcium 8.5 mg/dL (8.6-10.3); Carbon Dioxide 28 mEq/L (23-29); Chloride 99 mEq/L (98-107); Glucose 198 mg/dL (70-105); Osmolality,Calculated 282 (280-300); Potassium 3.8 mEq/L (3.5-5.1); Sodium 134 mEq/L (136-145); eGFR For African Americans > 60 (> 60); eGFR For Non-African Americans > 60 (> 60)
[2021-11-17] MEDS: *HR* Heparin 5,000 UNIT/ML VIAL SQ SCH ×4 (08:47→22:47)
[2021-11-17] MEDS: Insulin LISPRO 300 UNITS/3 ML VIAL SUBQ SCH ×4 (08:47→20:17)
[2021-11-17] MEDS: BuPROPion XL (24 HR) 150 MG TABLET PO SCH (08:48)
[2021-11-17] MEDS: Gabapentin 300 MG CAPSULE PO SCH ×3 (08:48→20:17)
[2021-11-17] MEDS: Piperacillin/Tazobactam 3.375 GM in 0.9 % Sodium Chloride Mini Bag 100 ML IVPB SCH ×2 (12:21→18:23)
[2021-11-17] MEDS ORDERED: Ipratropium/Albuterol Neb 3 ML IH PRN (18:07)
[2021-11-17] MEDS: Insulin DETEMIR 100 UNIT/ML X5UNITS SUBQ SCH (20:17)
[2021-11-18] MEDS: Piperacillin/Tazobactam 3.375 GM in 0.9 % Sodium Chloride Mini Bag 100 ML IVPB SCH ×3 (03:35→20:25)
[2021-11-18 05:10] LABS: Basophils # 0.1 K/mcL (0.0-0.2); Basophils % 0.6 %; Eosinophils # 0.3 K/mcL (0.0-0.6); Eosinophils % 2.4 %; Hematocrit 43.2 % (35.3-44.9); Hemoglobin 14.1 g/dL (11.5-15.4); Immature Granulocytes % 0.6 % (0-4); Lymphocytes # 2.5 K/mcL (0.6-4.6); Lymphocytes % 23.2 %; Mean Corpuscular HGB Conc 32.6 g/dL (31.6-35.5); Mean Corpuscular Hemoglobin 29.9 pg (28.0-33.3); Mean Corpuscular Volume 91.7 fL (83.0-100.0); Mean Platelet Volume 11.1 fL (9.4-12.4); Monocytes % 9.1 %; Platelet Count 224 K/mcL (140-400); Red Blood Count 4.71 M/mcL (3.82-4.97); Red Cell Distribution Width 14.4 % (11.5-14.5); Segmented Neutrophils % 64.1 %; White Blood Count 10.9 K/mcL (4.3-11.1)
[2021-11-18 05:34] LABS: BUN/Creatinine Ratio 26 (6-26); Blood Urea Nitrogen 9 mg/dL (6-20); Calcium 8.9 mg/dL (8.6-10.3); Carbon Dioxide 24 mEq/L (23-29); Chloride 98 mEq/L (98-107); Glucose 213 mg/dL (70-105); Osmolality,Calculated 279 (280-300); Potassium 3.8 mEq/L (3.5-5.1); Sodium 132 mEq/L (136-145); eGFR For African Americans > 60 (> 60); eGFR For Non-African Americans > 60 (> 60)
[2021-11-18] MEDS: Gabapentin 300 MG CAPSULE PO SCH ×3 (08:48→20:24)
[2021-11-18] MEDS: *HR* Heparin 5,000 UNIT/ML VIAL SQ SCH ×3 (08:48→23:16)
[2021-11-18] MEDS: BuPROPion XL (24 HR) 150 MG TABLET PO SCH (08:48)
[2021-11-18] MEDS: Insulin LISPRO 300 UNITS/3 ML VIAL SUBQ SCH ×4 (08:49→20:25)
[2021-11-18] MEDS: *HR* OxyCODONE/APAP 7.5/325 TABLET PO PRN ×3 (08:58→22:02)
[2021-11-18] MEDS: Insulin DETEMIR 100 UNIT/ML X5UNITS SUBQ SCH (17:51)
[2021-11-18] MEDS: Lactobacillus 1 EACH CAP.SPRINK PO SCH (20:24)
[2021-11-19 05:26] LABS: Basophils # 0.1 K/mcL (0.0-0.2); Basophils % 0.7 %; Eosinophils # 0.2 K/mcL (0.0-0.6); Eosinophils % 2.2 %; Hematocrit 43.8 % (35.3-44.9); Hemoglobin 13.8 g/dL (11.5-15.4); Immature Granulocytes % 1.2 % (0-4); Lymphocytes # 2.4 K/mcL (0.6-4.6); Lymphocytes % 23.4 %; Mean Corpuscular HGB Conc 31.5 g/dL (31.6-35.5); Mean Corpuscular Hemoglobin 29.4 pg (28.0-33.3); Mean Corpuscular Volume 93.2 fL (83.0-100.0); Monocytes # 0.7 K/mcL (0.0-1.3); Monocytes % 7.2 %; Neutrophils # 6.7 K/mcL (1.6-8.9); Platelet Count 255 K/mcL (140-400); Red Cell Distribution Width 14.3 % (11.5-14.5); Segmented Neutrophils % 65.3 %; White Blood Count 10.3 K/mcL (4.3-11.1)
[2021-11-19 05:45] LABS: BUN/Creatinine Ratio 21 (6-26); Blood Urea Nitrogen 10 mg/dL (6-20); Calcium 8.9 mg/dL (8.6-10.3); Carbon Dioxide 27 mEq/L (23-29); Chloride 98 mEq/L (98-107); Glucose 283 mg/dL (70-105); Osmolality,Calculated 285 (280-300); Potassium 3.8 mEq/L (3.5-5.1); Sodium 133 mEq/L (136-145); eGFR For African Americans > 60 (> 60); eGFR For Non-African Americans > 60 (> 60)
[2021-11-19] MEDS: Gabapentin 300 MG CAPSULE PO SCH ×3 (08:22→22:19)
[2021-11-19] MEDS: Lactobacillus 1 EACH CAP.SPRINK PO SCH ×2 (08:22→22:19)
[2021-11-19] MEDS: BuPROPion XL (24 HR) 150 MG TABLET PO SCH (08:22)
[2021-11-19] MEDS: *HR* Heparin 5,000 UNIT/ML VIAL SQ SCH (08:24)
[2021-11-19] MEDS: Insulin LISPRO 300 UNITS/3 ML VIAL SUBQ SCH ×3 (08:24→22:19)
[2021-11-19] MEDS: *HR* OxyCODONE/APAP 7.5/325 TABLET PO PRN ×2 (10:47→18:30)
[2021-11-19] MEDS: cefTRIAXone 1,000 MG in 0.9 % Sodium Chloride 10 ML IVP SCH (10:51)
[2021-11-20] MEDS: Insulin DETEMIR 100 UNIT/ML X5UNITS SUBQ SCH ×2 (07:18→17:30)
[2021-11-20] MEDS: Insulin LISPRO 300 UNITS/3 ML VIAL SUBQ SCH ×5 (07:18→20:07)
[2021-11-20 07:21] LABS: Basophils # 0.1 K/mcL (0.0-0.2); Basophils % 0.8 %; Eosinophils # 0.2 K/mcL (0.0-0.6); Eosinophils % 1.7 %; Hematocrit 43.6 % (35.3-44.9); Hemoglobin 14.1 g/dL (11.5-15.4); Immature Granulocytes % 1.2 % (0-4); Lymphocytes # 2.5 K/mcL (0.6-4.6); Lymphocytes % 23.1 %; Mean Corpuscular HGB Conc 32.3 g/dL (31.6-35.5); Mean Corpuscular Hemoglobin 29.7 pg (28.0-33.3); Mean Platelet Volume 10.2 fL (9.4-12.4); Monocytes # 0.9 K/mcL (0.0-1.3); Monocytes % 7.9 %; Platelet Count 281 K/mcL (140-400); Red Blood Count 4.74 M/mcL (3.82-4.97); Red Cell Distribution Width 14.2 % (11.5-14.5); Segmented Neutrophils % 65.3 %; White Blood Count 10.7 K/mcL (4.3-11.1)
[2021-11-20 07:41] LABS: BUN/Creatinine Ratio 23 (6-26); Blood Urea Nitrogen 9 mg/dL (6-20); Calcium 9.1 mg/dL (8.6-10.3); Carbon Dioxide 29 mEq/L (23-29); Chloride 101 mEq/L (98-107); Glucose 189 mg/dL (70-105); Magnesium 1.6 mg/dL (1.6-2.6); Osmolality,Calculated 286 (280-300); Potassium 4.2 mEq/L (3.5-5.1); Sodium 136 mEq/L (136-145); eGFR For African Americans > 60 (> 60); eGFR For Non-African Americans > 60 (> 60)
[2021-11-20] MEDS: Gabapentin 300 MG CAPSULE PO SCH ×3 (07:54→20:06)
[2021-11-20] MEDS: BuPROPion XL (24 HR) 150 MG TABLET PO SCH (07:54)
[2021-11-20] MEDS: cefTRIAXone 1,000 MG in 0.9 % Sodium Chloride 10 ML IVP SCH (07:54)
[2021-11-20] MEDS: *HR* Enoxaparin 40 MG/0.4 ML SYRINGE SQ SCH (07:55)
[2021-11-20] MEDS: Lactobacillus 1 EACH CAP.SPRINK PO SCH ×2 (07:55→20:06)
[2021-11-20] MEDS: *HR* OxyCODONE/APAP 7.5/325 TABLET PO PRN ×2 (09:09→15:42)
[2021-11-21] MEDS: *HR* OxyCODONE/APAP 7.5/325 TABLET PO PRN ×3 (01:06→19:58)
[2021-11-21 05:14] LABS: Basophils # 0.1 K/mcL (0.0-0.2); Basophils % 0.7 %; Eosinophils # 0.2 K/mcL (0.0-0.6); Eosinophils % 1.9 %; Hematocrit 41.2 % (35.3-44.9); Hemoglobin 13.6 g/dL (11.5-15.4); Immature Granulocytes % 1.6 % (0-4); Lymphocytes # 2.4 K/mcL (0.6-4.6); Mean Corpuscular Hemoglobin 30.6 pg (28.0-33.3); Mean Corpuscular Volume 92.8 fL (83.0-100.0); Mean Platelet Volume 10.2 fL (9.4-12.4); Monocytes # 0.8 K/mcL (0.0-1.3); Monocytes % 7.4 %; Neutrophils # 7.6 K/mcL (1.6-8.9); Platelet Count 298 K/mcL (140-400); Red Blood Count 4.44 M/mcL (3.82-4.97); Red Cell Distribution Width 14.2 % (11.5-14.5); Segmented Neutrophils % 67.4 %; White Blood Count 11.2 K/mcL (4.3-11.1)
[2021-11-21 05:32] LABS: BUN/Creatinine Ratio 22 (6-26); Blood Urea Nitrogen 11 mg/dL (6-20); Calcium 8.9 mg/dL (8.6-10.3); Carbon Dioxide 29 mEq/L (23-29); Chloride 100 mEq/L (98-107); Glucose 306 mg/dL (70-105); Magnesium 1.6 mg/dL (1.6-2.6); Osmolality,Calculated 291 (280-300); Sodium 135 mEq/L (136-145); eGFR For African Americans > 60 (> 60); eGFR For Non-African Americans > 60 (> 60)
[2021-11-21] MEDS: *HR* Enoxaparin 40 MG/0.4 ML SYRINGE SQ SCH (05:41)
[2021-11-21] MEDS: BuPROPion XL (24 HR) 150 MG TABLET PO SCH (07:47)
[2021-11-21] MEDS: Gabapentin 300 MG CAPSULE PO SCH ×3 (07:47→19:57)
[2021-11-21] MEDS: Lactobacillus 1 EACH CAP.SPRINK PO SCH ×2 (07:47→19:58)
[2021-11-21] MEDS: cefTRIAXone 1,000 MG in 0.9 % Sodium Chloride 10 ML IVP SCH (07:47)
[2021-11-21] MEDS: Insulin LISPRO 300 UNITS/3 ML VIAL SUBQ SCH ×4 (07:48→20:01)
[2021-11-21] MEDS ORDERED: cefTRIAXone 2,000 MG in 0.9 % Sodium Chloride Mini Bag 100 ML IVPB SCH (09:00)
[2021-11-21] MEDS ORDERED: cefTRIAXone 1,000 MG in 0.9 % Sodium Chloride 10 ML IVP ONE (09:00)
[2021-11-21] MEDS: Insulin DETEMIR 100 UNIT/ML X5UNITS SUBQ SCH (20:01)
[2021-11-22] MEDS: *HR* Enoxaparin 40 MG/0.4 ML SYRINGE SQ SCH (08:28)
[2021-11-22] MEDS: Gabapentin 300 MG CAPSULE PO SCH ×3 (08:28→20:47)
[2021-11-22] MEDS: Lactobacillus 1 EACH CAP.SPRINK PO SCH ×2 (08:28→20:47)
[2021-11-22] MEDS: BuPROPion XL (24 HR) 150 MG TABLET PO SCH (08:28)
[2021-11-22] MEDS: cefTRIAXone 2,000 MG in 0.9 % Sodium Chloride Mini Bag 100 ML IVPB SCH (08:31)
[2021-11-22] MEDS: Insulin LISPRO 300 UNITS/3 ML VIAL SUBQ SCH ×4 (08:42→20:50)
[2021-11-22] MEDS: Insulin DETEMIR 100 UNIT/ML X5UNITS SUBQ SCH ×2 (08:44→20:51)
[2021-11-22 08:51] LABS: Basophils # 0.1 K/mcL (0.0-0.2); Basophils % 0.9 %; Eosinophils # 0.2 K/mcL (0.0-0.6); Eosinophils % 1.6 %; Hematocrit 44.9 % (35.3-44.9); Hemoglobin 14.3 g/dL (11.5-15.4); Immature Granulocytes % 1.6 % (0-4); Lymphocytes # 2.3 K/mcL (0.6-4.6); Lymphocytes % 21.2 %; Mean Corpuscular HGB Conc 31.8 g/dL (31.6-35.5); Mean Corpuscular Hemoglobin 29.8 pg (28.0-33.3); Mean Corpuscular Volume 93.5 fL (83.0-100.0); Mean Platelet Volume 10.5 fL (9.4-12.4); Monocytes # 0.9 K/mcL (0.0-1.3); Neutrophils # 7.3 K/mcL (1.6-8.9); Platelet Count 310 K/mcL (140-400); Red Cell Distribution Width 14.4 % (11.5-14.5); Segmented Neutrophils % 66.7 %; White Blood Count 10.9 K/mcL (4.3-11.1)
[2021-11-22 09:11] LABS: BUN/Creatinine Ratio 21 (6-26); Blood Urea Nitrogen 9 mg/dL (6-20); Calcium 9.2 mg/dL (8.6-10.3); Carbon Dioxide 28 mEq/L (23-29); Chloride 101 mEq/L (98-107); Glucose 208 mg/dL (70-105); Magnesium 1.6 mg/dL (1.6-2.6); Osmolality,Calculated 287 (280-300); Potassium 4.2 mEq/L (3.5-5.1); Sodium 136 mEq/L (136-145); eGFR For African Americans > 60 (> 60); eGFR For Non-African Americans > 60 (> 60)
[2021-11-22] MEDS: *HR* OxyCODONE/APAP 7.5/325 TABLET PO PRN ×2 (11:26→20:50)
[2021-11-23 04:48] LABS: Basophils # 0.1 K/mcL (0.0-0.2); Basophils % 0.8 %; Eosinophils # 0.2 K/mcL (0.0-0.6); Eosinophils % 1.4 %; Hematocrit 41.7 % (35.3-44.9); Hemoglobin 13.6 g/dL (11.5-15.4); Immature Granulocytes % 1.3 % (0-4); Lymphocytes # 2.7 K/mcL (0.6-4.6); Mean Corpuscular HGB Conc 32.6 g/dL (31.6-35.5); Mean Corpuscular Hemoglobin 30.3 pg (28.0-33.3); Mean Corpuscular Volume 92.9 fL (83.0-100.0); Mean Platelet Volume 10.4 fL (9.4-12.4); Monocytes % 9.2 %; Platelet Count 296 K/mcL (140-400); Red Blood Count 4.49 M/mcL (3.82-4.97); Red Cell Distribution Width 14.4 % (11.5-14.5); Segmented Neutrophils % 63.3 %; White Blood Count 11.1 K/mcL (4.3-11.1)
[2021-11-23 05:07] LABS: BUN/Creatinine Ratio 22 (6-26); Blood Urea Nitrogen 10 mg/dL (6-20); Carbon Dioxide 28 mEq/L (23-29); Chloride 102 mEq/L (98-107); Glucose 203 mg/dL (70-105); Magnesium 1.7 mg/dL (1.6-2.6); Osmolality,Calculated 289 (280-300); Sodium 137 mEq/L (136-145); eGFR For African Americans > 60 (> 60); eGFR For Non-African Americans > 60 (> 60)
[2021-11-23] MEDS: Gabapentin 300 MG CAPSULE PO SCH (07:51)
[2021-11-23] MEDS: *HR* Enoxaparin 40 MG/0.4 ML SYRINGE SQ SCH (07:52)
[2021-11-23] MEDS: cefTRIAXone 2,000 MG in 0.9 % Sodium Chloride Mini Bag 100 ML IVPB SCH (07:52)
[2021-11-23] MEDS: BuPROPion XL (24 HR) 150 MG TABLET PO SCH (07:52)
[2021-11-23] MEDS: Lactobacillus 1 EACH CAP.SPRINK PO SCH (07:52)
[2021-11-23] MEDS: Insulin LISPRO 300 UNITS/3 ML VIAL SUBQ SCH ×2 (07:54→12:11)
[2021-11-23] MEDS: Insulin DETEMIR 100 UNIT/ML X5UNITS SUBQ SCH (07:59)
[2021-11-23 10:40] VITALS: BP 107/76; PULSE 86; TEMP 99; O2SAT 93
[2021-11-23] MEDS: *HR* OxyCODONE/APAP 7.5/325 TABLET PO PRN (13:04)
== END 2021-11-23 13:07 | disposition home or self-care (01) | DRG 720 ==
LOC: 4WAOSI → SUATTDRO 13:40
PROVIDERS: ADMIT Hospitalist; ATTEND Pharmacist